=== PATIENT | female | born 1945 | race Caucasian/White ===

== ENCOUNTER 2018-01-05 11:06 | Inpatient (IN) ==
[2018-01-05] MEDS ORDERED: Orphenadrine Inj 60 MG/2 ML Ampul IM ONE (11:23)
--- NOTE | 2018-01-05 12:11 | ED ---
HPI General Chief Complaint: Back Pain/Injury Stated Complaint: Lower Back pain/Hip pain x 3 weeks Time Seen by Provider: 01/05/18 11:17 Source: patient and family Mode of arrival: wheelchair Limitations: no limitations History of Present Illness HPI Narrative: 72-year-old female that presents to the ED for evaluation of back pain that she has had for about 3 weeks now. Per patient is progressively getting worse. Per patient she has no injuries. No urinary or bowel movement issues. Per patient she is taking [id number] remedies with minimal relief. No injuries or falls. History of osteoporosis. No history of kidney stones. Apparently patient was seen about [address] [facility] for evaluation of headaches. She had a full workup including CAT scan and was essentially found to have no sign of acute disease. She is given some pain medication at the time but did not seem to help with the headache. Per patient the headaches seem to have gone away but she has this back pain. Denies any numbness, drooling, weakness. Pain per patient is 10 out of 10. Standing as well as walking makes it worse. Denies any trauma or surgery to her back. No abdominal pain. Pain is to the lower back. Bilaterally. Related Data Home Medications Medication Instructions Recorded Confirmed Fish Oil 1,200 mg PO DAILY 01/06/18 01/06/18 L-Tryroxine 88 mcg PO DAILY 01/06/18 Vitamin B-12 1,000 mg PO DAILY 01/06/18 01/06/18 Vitamin D3 1,000 PO DAILY 01/06/18 allopurinol 100 mg PO DAILY 01/06/18 01/06/18 atorvastatin 20 mg PO DAILY 01/06/18 01/06/18 lisinopril 10 mg PO DAILY 01/06/18 01/06/18 tolterodine 4 mg PO DAILY 01/06/18 01/06/18 Allergies Allergy/AdvReac Type Severity Reaction Status Date / Time No Known Allergies Allergy Unverified 01/05/18 11:12 Review of Systems ROS: all other systems reviewed are negative [facility] Medical History Medical History H/O appendicitis (Acute) High cholesterol (Acute) Hypertension (Acute) Hypothyroid (Acute) Family History Family History Mother History of breast cancer Father History of myocardial infarction Social History Social History Substance History: No History of Abuse Second Hand Smoke Exposure: Yes Smoking Status: Former smoker Number of Pack-Years (if former smoker): 50 (Patient quit smoking 7-8 months ago) How Often Do You Have a Drink Containing Alcohol: 2 to 3 times a week Recent Travel in [facility] within the Last 8 Weeks: No Recent Out of Country Travel within the Last 8 Weeks: No Immunization History Tetanus Immunization: Unsure Hx Influenza Vaccine This Season: No Exam Narrative Exam Narrative: GENERAL: Well-appearing SKIN: Focused skin assessment warm/dry. HEAD: Atraumatic. Normocephalic. EYES: Pupils equal and round. No scleral icterus. No injection or drainage. ENT: No nasal bleeding or discharge. Mucous membranes pink and moist. Tongue is midline. No uvula deviation. NECK: Trachea midline. No JVD. CARDIOVASCULAR: Regular rate and rhythm. No murmur appreciated. RESPIRATORY: No accessory muscle use. Clear to auscultation. Breath sounds equal bilaterally. GASTROINTESTINAL: Abdomen soft, non-tender, nondistended. Hepatic and splenic margins not palpable. MUSCULOSKELETAL: No obvious deformities. No clubbing. No cyanosis. No edema. Full range of motion of the upper and lower extremities bilaterally. Straight leg test negative bilaterally. Patient is a reversible pain in the musculature of the lower back. No lumbar, thoracic, cervical spine tenderness to palpation. No obvious deformity noted. No rashes. 2+ pulses bilaterally. NEUROLOGICAL: Awake and alert. No obvious cranial nerve deficits. Motor grossly within normal limits. Normal speech. PSYCHIATRIC: Appropriate mood and affect; insight and judgment normal. Course Initial Documented Vital Signs Temperature 98.3 F 01/05/18 11:08 Pulse Rate 100 H 01/05/18 11:08 Respiratory Rate 18 01/05/18 11:08 Blood Pressure 147/85 H 01/05/18 11:08 Pulse Oximetry 96 01/05/18 11:08 Last Documented Vital Signs Temperature 98.6 F 01/07/18 00:00 Pulse Rate 94 H 01/07/18 00:00 Respiratory Rate 18 01/07/18 00:00 Blood Pressure 138/69 01/07/18 00:00 Pulse Oximetry 92 L 01/07/18 00:00 Medical Decision Making CHEPE Attestation CHEPE supervised visit: Yes Attestation: I, Dr. Pratt, have reviewed the advance practice practitioner's documentation and am in agreement, met with the patient face to face, made the diagnosis, and the medical decision making was done by me. *My assessment and Findings: Musculoskeletal pain vs. pneumonia vs. arthritis 72yo F with mid back pain for a few weeks. CT LS showed incidental finding of AAA up to 4.8cm transverse diameter. So we obtained a CTA to further evalaute it. CTA showed incidental finding of 3.4 x 2.4cm central right lung mass in the superior segment of right lower lobe. Given this new finding and pt's severe mid thoracic pain, will admit with heme onc consult since this is concerning for cancer. Dr. Gray was consulted and said it is not surgical. MDM Narrative Medical decision making narrative: 72-year-old female that presents to the ED for evaluation of back pain. Patient was properly examined and was found to have signs and symptoms consistent appears to be back pain. Unclear etiology at this time. It does appear to be muscular skeletal in nature. UA and imaging ordered. CT of the lumbar spine as well as x-ray of the hip did show what appears to be chronic changes but also showed 4.8 cm aneurysm. Case was discussed with my attending as patient continues to have pain although she had some relief from the pain medication. Recommendation at this time is for CTA to rule out any sign of dissection causing the pain. Patient was told this and agrees with plan. Labs and imaging were positive for what appears to be possible lung cancer. Patient has 2 masses and lymphadenopathy per the CTA report. In regards to the aneurysm it appears to be a 4.6 aneurysm. Case was discussed with Dr. Gray over the phone about the aneurysm who states that with the findings it appears to be benign and likely not the cause of the patient's discomfort. He does not foresee the patient having surgery secondary to the possible lung cancer diagnosis but will follow up on the patient. Patient was reassessed and still in some discomfort. As long as she does not move she does have pain whenever we rule her get her up she gets a lot of pain. She was given 4 more milligrams of morphine. Case discussed with Dr. Pratt who recommends admission for further evaluation with. Unfortunately we suspect that the pain may be related to the possible cancer. This was discussed with the patient and the family who are in agreement with plan. SOLA was paged. Dr Pratt spoke with Dr Jeffries who agreed to admission to his service. Medical Screen Exam Complete: Yes Emergency Medical Condition: Yes Differential Diagnosis Differential Diagnosis: UTI versus muscle strain versus lumbar strain versus compression fracture versus stenosis Medical Records Medical records reviewed: Yes I reviewed the patient's medical records. Lab Data Lab results reviewed: Yes I reviewed the patient's lab results. Result diagrams: 01/06/18 13:25 01/06/18 05:30 Lab Results 01/05/18 01/05/18 01/05/18 Range/Units 13:05 13:05 13:15 CBC w Diff Auto diff final WBC 6.3 (4.0-11.0) th/mm3 RBC 3.83 L (4.00-5.30) mil/mm3 Hgb 12.6 (11.6-15.3) gm/dL Hct 37.1 (35.0-46.0) % MCV 96.8 (80.0-100.0) fL MCH 33.0 (27.0-34.0) pg MCHC 34.0 (32.0-36.0) % RDW 12.4 (11.6-17.2) % Plt Count 238 (150-450) th/mm3 MPV 7.8 (7.0-11.0) fL Neut % (Auto) 80.2 H (16.0-70.0) % Lymph % (Auto) 12.3 (9.0-44.0) % [place] % (Auto) 3.8 (0.0-8.0) % Eos % (Auto) 3.4 (0.0-4.0) % Baso % (Auto) 0.3 (0.0-2.0) % Neut # (Auto) 5.1 (1.8-7.7) th/mm3 Lymph # (Auto) 0.8 L (1.0-4.8) th/mm3 [place] # (Auto) 0.2 (0.0-0.9) th/mm3 Eos # (Auto) 0.2 (0.0-0.4) th/mm3 Baso # (Auto) 0.0 (0.0-0.2) th/mm3 WBC Differential . Differential Comment . PT 11.5 (9.8-11.6) sec INR 1.1 Ratio APTT 24.8 (24.3-30.1) sec Sodium 138 (136-145) meq/L Potassium 3.9 (3.5-5.1) meq/L Chloride 108 H (98-107) meq/L Carbon Dioxide 18.7 L (21.0-32.0) meq/L Anion Gap 11 (5-15) meq/L BUN 21 H (7-18) mg/dL Creatinine 1.10 H (0.50-1.00) mg/dL Estimated GFR 49 L (>89) mL/min Random Glucose 90 (74-106) mg/dL Calcium 8.9 (8.5-10.1) mg/dL Total Bilirubin 0.4 (0.2-1.0) mg/dL AST 44 H (15-37) U/L ALT 29 (10-53) U/L Alkaline Phosphatase 82 (45-117) U/L Lactate Dehydrogenase (84-246) U/L Total Protein 6.9 (6.4-8.2) g/dL Albumin 3.3 L (3.4-5.0) g/dL Lipase 279 (73-393) U/L Tumor Marker AFP (0.5-8.0) ng/mL Carcinoembryonic Ag (0.2-5.0) ng/mL CA 15-3 Antigen (0.0-32.4) U/mL CA 19-9 Antigen (0.0-35.0) U/mL CA 125 Antigen (0.0-30.2) U/mL Urine Color (Yellw/Straw) Urine Clarity (Clear) Urine pH (5.0-8.5) Ur Specific [place] (1.002-1.035) Urine Protein (Neg-Trace) mg/dL Urine Glucose (UA) (Negative) mg/dL Urine Ketones (Negative) mg/dL Urine Occult Blood (Negative) Urine Nitrate (Negative) Urine Bilirubin (Negative) Urine Urobilinogen (Less than 2) mg/dL Ur Leukocyte Esterase (Negative) Urine RBC (0-3) /hpf Urine WBC (0-5) /hpf Ur Squamous Epith Cells (0-5) /hpf Micro UA Comment 01/05/18 01/05/18 01/05/18 Range/Units 20:02 22:45 22:45 CBC w Diff WBC (4.0-11.0) th/mm3 RBC (4.00-5.30) mil/mm3 Hgb (11.6-15.3) gm/dL Hct (35.0-46.0) % MCV (80.0-100.0) fL MCH (27.0-34.0) pg MCHC (32.0-36.0) % RDW (11.6-17.2) % Plt Count (150-450) th/mm3 MPV (7.0-11.0) fL Neut % (Auto) (16.0-70.0) % Lymph % (Auto) (9.0-44.0) % [place] % (Auto) (0.0-8.0) % Eos % (Auto) (0.0-4.0) % Baso % (Auto) (0.0-2.0) % Neut # (Auto) (1.8-7.7) th/mm3 Lymph # (Auto) (1.0-4.8) th/mm3 [place] # (Auto) (0.0-0.9) th/mm3 Eos # (Auto) (0.0-0.4) th/mm3 Baso # (Auto) (0.0-0.2) th/mm3 WBC Differential Differential Comment PT (9.8-11.6) sec INR Ratio APTT (24.3-30.1) sec Sodium (136-145) meq/L Potassium (3.5-5.1) meq/L Chloride (98-107) meq/L Carbon Dioxide (21.0-32.0) meq/L Anion Gap (5-15) meq/L BUN (7-18) mg/dL Creatinine (0.50-1.00) mg/dL Estimated GFR (>89) mL/min Random Glucose (74-106) mg/dL Calcium (8.5-10.1) mg/dL Total Bilirubin (0.2-1.0) mg/dL AST (15-37) U/L ALT (10-53) U/L Alkaline Phosphatase (45-117) U/L Lactate Dehydrogenase 270 H (84-246) U/L Total Protein (6.4-8.2) g/dL Albumin (3.4-5.0) g/dL Lipase (73-393) U/L Tumor Marker AFP 3.8 (0.5-8.0) ng/mL Carcinoembryonic Ag 18.4 H (0.2-5.0) ng/mL CA 15-3 Antigen 11.5 (0.0-32.4) U/mL CA 19-9 Antigen 653.0 H (0.0-35.0) U/mL CA 125 Antigen 7.1 (0.0-30.2) U/mL Urine Color Yellow (Yellw/Straw) Urine Clarity Clear (Clear) Urine pH 5.5 (5.0-8.5) Ur Specific [place] Less/equal 1.005 (1.002-1.035) Urine Protein 100 H (Neg-Trace) mg/dL Urine Glucose (UA) Negative (Negative) mg/dL Urine Ketones Negative (Negative) mg/dL Urine Occult Blood Negative (Negative) Urine Nitrate Negative (Negative) Urine Bilirubin Negative (Negative) Urine Urobilinogen 0.2 (Less than 2) mg/dL Ur Leukocyte Esterase Negative (Negative) Urine RBC 0-3 (0-3) /hpf Urine WBC 0-5 (0-5) /hpf Ur Squamous Epith Cells 0-5 (0-5) /hpf Micro UA Comment Culture not ind 01/06/18 01/06/18 01/06/18 Range/Units 05:30 05:30 13:25 CBC w Diff Auto diff final Auto diff final WBC 4.7 6.0 (4.0-11.0) th/mm3 RBC 3.75 L 3.57 L (4.00-5.30) mil/mm3 Hgb 12.2 11.9 (11.6-15.3) gm/dL Hct 36.7 33.7 L (35.0-46.0) % MCV 97.8 94.6 (80.0-100.0) fL MCH 32.6 33.5 (27.0-34.0) pg MCHC 33.3 35.4 (32.0-36.0) % RDW 12.2 13.3 (11.6-17.2) % Plt Count 242 241 (150-450) th/mm3 MPV 8.5 8.2 (7.0-11.0) fL Neut % (Auto) 81.4 H 82.1 H (16.0-70.0) % Lymph % (Auto) 15.8 10.1 (9.0-44.0) % [place] % (Auto) 2.3 7.2 (0.0-8.0) % Eos % (Auto) 0.2 0.2 (0.0-4.0) % Baso % (Auto) 0.3 0.4 (0.0-2.0) % Neut # (Auto) 3.9 5.0 (1.8-7.7) th/mm3 Lymph # (Auto) 0.7 L 0.6 L (1.0-4.8) th/mm3 [place] # (Auto) 0.1 0.4 (0.0-0.9) th/mm3 Eos # (Auto) 0.0 0.0 (0.0-0.4) th/mm3 Baso # (Auto) 0.0 0.0 (0.0-0.2) th/mm3 WBC Differential . . Differential Comment . . PT (9.8-11.6) sec INR Ratio APTT (24.3-30.1) sec Sodium 139 (136-145) meq/L Potassium 4.1 (3.5-5.1) meq/L Chloride 110 H (98-107) meq/L Carbon Dioxide 20.2 L (21.0-32.0) meq/L Anion Gap 9 (5-15) meq/L BUN 21 H (7-18) mg/dL Creatinine 1.10 H (0.50-1.00) mg/dL Estimated GFR 49 L (>89) mL/min Random Glucose 146 H (74-106) mg/dL Calcium 8.9 (8.5-10.1) mg/dL Total Bilirubin (0.2-1.0) mg/dL AST (15-37) U/L ALT (10-53) U/L Alkaline Phosphatase (45-117) U/L Lactate Dehydrogenase (84-246) U/L Total Protein (6.4-8.2) g/dL Albumin (3.4-5.0) g/dL Lipase (73-393) U/L Tumor Marker AFP (0.5-8.0) ng/mL Carcinoembryonic Ag (0.2-5.0) ng/mL CA 15-3 Antigen (0.0-32.4) U/mL CA 19-9 Antigen (0.0-35.0) U/mL CA 125 Antigen (0.0-30.2) U/mL Urine Color (Yellw/Straw) Urine Clarity (Clear) Urine pH (5.0-8.5) Ur Specific [place] (1.002-1.035) Urine Protein (Neg-Trace) mg/dL Urine Glucose (UA) (Negative) mg/dL Urine Ketones (Negative) mg/dL Urine Occult Blood (Negative) Urine Nitrate (Negative) Urine Bilirubin (Negative) Urine Urobilinogen (Less than 2) mg/dL Ur Leukocyte Esterase (Negative) Urine RBC (0-3) /hpf Urine WBC (0-5) /hpf Ur Squamous Epith Cells (0-5) /hpf Micro UA Comment 01/06/18 Range/Units 13:25 CBC w Diff WBC (4.0-11.0) th/mm3 RBC (4.00-5.30) mil/mm3 Hgb (11.6-15.3) gm/dL Hct (35.0-46.0) % MCV (80.0-100.0) fL MCH (27.0-34.0) pg MCHC (32.0-36.0) % RDW (11.6-17.2) % Plt Count (150-450) th/mm3 MPV (7.0-11.0) fL Neut % (Auto) (16.0-70.0) % Lymph % (Auto) (9.0-44.0) % [place] % (Auto) (0.0-8.0) % Eos % (Auto) (0.0-4.0) % Baso % (Auto) (0.0-2.0) % Neut # (Auto) (1.8-7.7) th/mm3 Lymph # (Auto) (1.0-4.8) th/mm3 [place] # (Auto) (0.0-0.9) th/mm3 Eos # (Auto) (0.0-0.4) th/mm3 Baso # (Auto) (0.0-0.2) th/mm3 WBC Differential Differential Comment PT 11.5 (9.8-11.6) sec INR 1.1 Ratio APTT 23.1 L (24.3-30.1) sec Sodium (136-145) meq/L Potassium (3.5-5.1) meq/L Chloride (98-107) meq/L Carbon Dioxide (21.0-32.0) meq/L Anion Gap (5-15) meq/L BUN (7-18) mg/dL Creatinine (0.50-1.00) mg/dL Estimated GFR (>89) mL/min Random Glucose (74-106) mg/dL Calcium (8.5-10.1) mg/dL Total Bilirubin (0.2-1.0) mg/dL AST (15-37) U/L ALT (10-53) U/L Alkaline Phosphatase (45-117) U/L Lactate Dehydrogenase (84-246) U/L Total Protein (6.4-8.2) g/dL Albumin (3.4-5.0) g/dL Lipase (73-393) U/L Tumor Marker AFP (0.5-8.0) ng/mL Carcinoembryonic Ag (0.2-5.0) ng/mL CA 15-3 Antigen (0.0-32.4) U/mL CA 19-9 Antigen (0.0-35.0) U/mL CA 125 Antigen (0.0-30.2) U/mL Urine Color (Yellw/Straw) Urine Clarity (Clear) Urine pH (5.0-8.5) Ur Specific [place] (1.002-1.035) Urine Protein (Neg-Trace) mg/dL Urine Glucose (UA) (Negative) mg/dL Urine Ketones (Negative) mg/dL Urine Occult Blood (Negative) Urine Nitrate (Negative) Urine Bilirubin (Negative) Urine Urobilinogen (Less than 2) mg/dL Ur Leukocyte Esterase (Negative) Urine RBC (0-3) /hpf Urine WBC (0-5) /hpf Ur Squamous Epith Cells (0-5) /hpf Micro UA Comment Imaging Data Attestation: I personally reviewed and interpreted this imaging study as follows : Radiologist's impression: Hip X-Ray 01/05/18 11:23 CONCLUSION: No evidence of recent bony injury. Lumbar Spine CT 01/05/18 11:23 CONCLUSION: 1. Abdominal aortic aneurysm measuring up to 4.8 cm transverse diameter. Bilateral presumed renal cysts. Findings better evaluated on CT abdomen and pelvis with contrast. 2. At L4-5 there is a mild broad-based disc protrusion and facet arthropathy with moderate central canal stenosis. 3. At L2-3, L3-4 and L5-S1 there is mild lateral recess and foraminal encroachment bilaterally. Thoracic Aorta CT 01/05/18 12:52 CONCLUSION: 1. 3.4 x 2.4 cm central right lung mass with adjacent 4.5 x 2.6 cm central mass in the superior segment of the right lower lobe and associated segmental bronchial occlusion. There is also associated bulky mediastinal adenopathy. 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 No definitive evidence for distal or contralateral metastatic disease. 2. 1 cm soft tissue density mass in the superior anterior right chest wall of uncertain clinical significance. This can be further evaluated if staging PET/ CT examination is performed. 3. 4.6 cm infrarenal aortic aneurysm with favorable neck anatomy for endovascular repair. 4. No aortic dissection. Discharge Plan Discharge Disposition Patient Disposition: 30 Still Patient Discharge Details Diagnosis: Back pain, Lung mass, Aneurysm Physicians Team ED Provider: Maribell Pratt ED Midlevel Provider: Leandro Ghotra Primary Care Provider: Tobi Jeffries Attending Provider: Marii Owusu Other Providers: Blake Caceres Chandan Status ED Status: Left Department Discharge Information Discharge Date/Time: 01/05/18 17:13
--- NOTE | 2018-01-05 12:24 | XR ---
EXAM DATE: 01/05/2018 12:20 PM EDT AGE/SEX: 72 years / Female INDICATIONS: Right hip pain x 3 weeks with no known injury. CLINICAL DATA: This is the patient's initial encounter. Patient reports that signs and symptoms have been present for 3 weeks and indicates a pain score of 7/10. MEDICAL/SURGICAL HISTORY: Hypothyroidism. Hypertension. Hypercholesterolemia. Appendectomy. COMPARISON: No prior exams available for comparison. FINDINGS: Bony structures are intact and in normal alignment. Joints are intact without dislocation or signifi cant arthropathy. Osseous density is normal. Soft tissues are unremarkable. No radiopaque foreign bodies seen. CONCLUSION: No evidence of recent bony injury. Electronically signed by: Blake Stubbs MD 01/05/2018 12:22 PM EDT
--- NOTE | 2018-01-05 12:40 | CT ---
EXAM DATE: 01/05/2018 12:24 PM EDT AGE/SEX: 72 years / Female INDICATIONS: Worsening lower back pain for three weeks. Patient denies any recent trauma. CLINICAL DATA: This is the patient's initial encounter. Patient reports that signs and symptoms have been present for 3 weeks and indicates a pain score of 10/10. MEDICAL/SURGICAL HISTORY: Hypertension. Hypothyroidism. Appendectomy. RADIATION DOSE: 39.00 CTDI (mGy) COMPARISON: No prior exams available for comparison. TECHNIQUE: Contiguous axial images were acquired with a multirow detector CT scanner without contras t. Multiplanar reconstructions in the sagittal and coronal plane were also performed. Using automate d exposure control and adjustment of the mA and/or kV according to patient size, radiation dose was k ept as low as reasonably achievable to obtain optimal diagnostic quality images. DICOM format image data is available electronically for review and comparison. FINDINGS: There is an abdominal aortic aneurysm measuring up to 4.8 cm in transverse diameter. This is incomple tely evaluated and would be better evaluated with abdomen and pelvic CT with contrast. There are tiny nonobstructing left renal calculi. Bilateral presumed renal cysts present also better evaluated on C T. At [id number] there is no significant canal or foraminal stenosis. At L2-3 there is a broad-based disc bulge and facet arthropathy with mild lateral recess and foramina l encroachment bilaterally. At L3-4 there is a disc bulge and facet arthropathy with mild lateral recess and foraminal encroachme nt. At L4-5 there is a mild broad-based disc fusion at arthropathy with moderate central canal and latera l recess stenosis and mild foraminal stenosis At L5-S1 there is a disc bulge with minimal anterolisthesis. No central canal stenosis. Mild bilatera l foraminal stenosis. CONCLUSION: 1. Abdominal aortic aneurysm measuring up to 4.8 cm transverse diameter. Bilateral presumed renal cy sts. Findings better evaluated on CT abdomen and pelvis with contrast. 2. At L4-5 there is a mild broad-based disc protrusion and facet arthropathy with moderate central c anal stenosis. 3. At L2-3, L3-4 and L5-S1 there is mild lateral recess and foraminal encroachment bilaterally. Electronically signed by: Jordan Arceo MD 01/05/2018 12:39 PM EDT
[2018-01-05] MEDS ORDERED: Morphine Inj 4 MG/ML Vial IV.PUSH ONE ×2 (12:52→13:06)
[2018-01-05 13:11] LABS: Baso % (Auto) 0.3 % (0.0-2.0); Eos # (Auto) 0.2 th/mm3 (0.0-0.4); Eos % (Auto) 3.4 % (0.0-4.0); Hematocrit 37.1 % (35.0-46.0); Hemoglobin 12.6 gm/dL (11.6-15.3); Lymph # (Auto) 0.8 th/mm3 (1.0-4.8); Lymph % (Auto) 12.3 % (9.0-44.0); Mean Corpuscular Volume 96.8 fL (80.0-100.0); Mean Platelet Volume 7.8 fL (7.0-11.0); Mono # (Auto) 0.2 th/mm3 (0.0-0.9); Mono % (Auto) 3.8 % (0.0-8.0); Neut # (Auto) 5.1 th/mm3 (1.8-7.7); Neut % (Auto) 80.2 % (16.0-70.0); Platelet Count 238 th/mm3 (150-450); Red Blood Count 3.83 mil/mm3 (4.00-5.30); Red Cell Distribution Width 12.4 % (11.6-17.2); White Blood Count 6.3 th/mm3 (4.0-11.0)
[2018-01-05 13:35] LABS: Lipase 279 U/L (73-393)
[2018-01-05 13:40] LABS: Activated Partial Thrombo Time 24.8 sec (24.3-30.1); INR 1.1 Ratio; Prothrombin Time 11.5 sec (9.8-11.6)
[2018-01-05 13:46] LABS: Chloride 108 meq/L (98-107); Potassium 3.9 meq/L (3.5-5.1); Sodium 138 meq/L (136-145)
[2018-01-05 13:49] LABS: Albumin 3.3 g/dL (3.4-5.0); Anion Gap 11 meq/L (5-15); Blood Urea Nitrogen 21 mg/dL (7-18); Calcium 8.9 mg/dL (8.5-10.1); Carbon Dioxide 18.7 meq/L (21.0-32.0); Glucose,Random 90 mg/dL (74-106)
[2018-01-05 13:52] LABS: Alanine Aminotransferase 29 U/L (10-53); Aspartate Aminotransferase 44 U/L (15-37); Glomerular Filtration Rate 49 mL/min (>89)
[2018-01-05 13:54] LABS: Total Protein 6.9 g/dL (6.4-8.2)
[2018-01-05 13:55] LABS: Alkaline Phosphatase 82 U/L (45-117)
--- NOTE | 2018-01-05 15:10 | CT ---
EXAM DATE: 01/05/2018 2:53 PM EDT AGE/SEX: 72 years / Female INDICATIONS: Lower back pain, abdominal aneurysm seen on prior lumbar spine CT. CLINICAL DATA: This is the patient's initial encounter. Patient reports that signs and symptoms have been present for 3 weeks and indicates a pain score of 9/10. MEDICAL/SURGICAL HISTORY: Hypertension. Hypothyroidism. Appendectomy. RADIATION DOSE: 15.94 CTDI (mGy) COMPARISON: [facility], CT LUMBAR SPINE W/O CONTRAST, 01/05/2018. . TECHNIQUE: Volumetric scanning was performed using a multi-row detector CT scanner during bolus infu genesis of 97 ml Omnipaque 350 (iohexol) nonionic water-soluble contrast as a single exam dose. The da ta was post processed with a variety of visualization algorithms including full volume maximum intens ity projection, multi-planar sliding thin slab reformation, curved planar reformation, and surface re ndering techniques. Using automated exposure control and adjustment of the mA and/or kV according to patient size, radiation dose was kept as low as reasonably achievable to obtain optimal diagnostic q uality images. DICOM format image data is available electronically for review and comparison. FINDINGS: Angiographic Findings: Ascending: Normal in Caliber without evidence for dissection. Arch: Normal 3 vessel arch anatomy. Proximal arch vessels are patent. Arch is normal in caliber witho ut dissection. Descending: Mild calcified plaque. Normal in caliber without evidence for dissection. Abdominal Aorta: Somewhat saccular-appearing infrarenal aortic aneurysm measuring up to 4.6 cm in ma ximal axial dimension. There is moderate amount of mural thrombus in the aneurysm sac. Aneurysm neck measures up to 2.5 cm and is mildly calcified. Aneurysm neck measures 1.8 cm in diameter. Iliacs: Iliac arteries are mild to moderately calcified but otherwise patent and nonaneurysmal. Inter nal iliac arteries are patent bilaterally. Common femoral arteries and visualized proximal femoral ar teries are patent. Renal Arteries: Single bilateral renal arteries. Mild calcified plaque at the origins without signifi cant flow-limiting stenosis. Mesenteric Arteries: Celiac is patent. Mild SMA origin stenosis. SOCRATES is patent and arises from just b elow the aneurysm sac.: General Findings: LUNGS: 3.4 x 2.4 cm central right lung mass with adjacent 4.5 x 2.6 cm central mass in the superior segment of the right lower lobe. There is associated occlusion of the segmental branches of the right lower lobe. PLEURA: No effusion, significant pleural thickening or pneumothorax. MEDIASTINUM: Multiple mediastinal nodes. Prominent subcarinal lymph node measuring 2.1 x 2.7 cm. Enl arged anterior carinal node measuring 2.3 x 2.8 cm. Prominent anterior tracheal lymph nodes measuring up to 3.2 x 2.2 cm. SOFT TISSUES: 1 cm soft tissue density mass in the superior anterior right chest wall. LIVER: Mild diffusely decreased hepatic density without focal mass or intrahepatic ductal dilatation . SPLEEN: Homogeneous density without enlargement. PANCREAS: Unremarkable without mass or calcification. KIDNEYS: Stable bilateral cystic lesions in the kidneys which are too small to fully characterize. D ominant 4.4 x 4.0 cm cyst in the inferior pole the left kidney. No hydronephrosis or radiopaque renal calculi. ADRENAL GLANDS: Unremarkable. BOWEL/MESENTERY: The bowel loops are grossly unremarkable. The cecum and sigmoid colon have a kp l configuration. ABDOMINAL WALL: Intact. RETROPERITONEUM: No evidence of adenopathy in the retrocrural, para-aortic, or deep pelvic regions. BLADDER: Contours are smooth. REPRODUCTIVE: No abnormal masses or calcifications seen. BONY STRUCTURES: Prominent Schmorl's nodes at T12. No definite focal lytic or blastic bony lesions. CONCLUSION: 1. 3.4 x 2.4 cm central right lung mass with adjacent 4.5 x 2.6 cm central mass in the superior segm ent of the right lower lobe and associated segmental bronchial occlusion. There is also associated bu lky mediastinal adenopathy. 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 No definitive evidence for distal or contralateral metastatic disease. 2. 1 cm soft tissue density mass in the superior anterior right chest wall of uncertain clinical sig nificance. This can be further evaluated if staging PET/CT examination is performed. 3. 4.6 cm infrarenal aortic aneurysm with favorable neck anatomy for endovascular repair. 4. No aortic dissection. Electronically signed by: Andrew Weber MD 01/05/2018 3:09 PM EDT
[2018-01-05] MEDS ORDERED: Acetaminophen 325 MG Tablet PO PRN (15:55)
[2018-01-05] MEDS ORDERED: MethylPREDNISolone Sod Succinate Inj 125 MG/2 ML Vial IV.PUSH ONE (16:00)
[2018-01-05] MEDS ORDERED: Enoxaparin Inj 40 MG/0.4 ML Syringe SQ SCH (18:00)
--- NOTE | 2018-01-05 18:58 | P.HP ---
History of Present Illness Primary Care Physician: Tobi Jeffries DO Chief Complaint: Back pain History of Present Illness: 72-year-old female with known history of hypertension, hyperlipidemia , history of tobacco use, hypothyroidism who presented to the hospital because of back pain. Patient states that she started having lower back pain approximately 3 weeks ago where progressively got worse to where it was very difficult and painful for her to go from a sitting or laying position to a standing position she went to her prior medical doctor's office 2 weeks ago to get her back evaluated. At that time she indicates that her primary medical doctor prescribed her an antidepressant. Her back pain never improved so she came to the emergency department for evaluation. Patient had workup done and found multiple medical problems in reference to her back pain. Patient has CT scan done which did indicate a disc bulge at L4-L5 with moderate central canal stenosis. Patient denied any neurological symptoms to include weakness, ambulation difficulty, paresthesia, paralysis, loss of bowel or bladder control. The CT also showed abdominal aortic aneurysm measuring 4.8 cm. Because of that reason. A thoracic CTA was performed which did indicate a 4.6 infrarenal aortic aneurysm with favorable neck anatomy for endovascular repair. The ER physician water quality assistant did contact cardiovascular surgery Dr. Abel, who indicated that the finding appears to be benign and not the cause of the patient's discomfort. He did not proceed the patient having surgery secondary to the possible lung cancer diagnosis is indicated that he would continue to follow up on the patient. However, because of that CT of the thorax patient was found to have multiple lung masses seen measuring 3.4 x 2.4 central right lung mass, 4.5 x 2.6 central mass in the superior segment of the right lower lobe associated with subsegmental bronchial occlusion. There was also bulky mediastinal adenopathy. Findings were concerning for primary lung neoplasm and mediastinum metastasis. Patient indicates that her primary medical doctor usually does chest x-rays on a annual basis and the last time she was there she indicates that she was told that they have been monitoring something in her chest x-ray that has not changed. She cannot be more specific about it. Patient states that the last time she was at her primary medical doctor's office 2 weeks ago she had a 22 pound weight loss as compared to the last time she was seen there. Patient denies any other symptoms other than the back pain and difficulty in movement. She denies any cough, congestion, shortness of breath, dyspnea, hemoptysis, abdominal pain, nausea, vomiting. - Diagnosis (1) Back pain (2) Lung mass (3) Aneurysm (4) Azotemia Review of Systems Musculoskeletal: Reports back pain PMFSH - History History Provided By: Patient - Medical History Medical History: Medical History (Last Reviewed 01/05/18 @ 12:09 by ERNESTINA Anderson) H/O appendicitis High cholesterol Hypertension Hypothyroid - Surgical History Surgical History: Surgical History (Last Updated 01/05/18 @ 18:42 by ERNESTINA [place]) H/O appendicitis - Family History Family History: Family History (Last Updated 01/05/18 @ 18:42 by ERNESTINA [place]) Mother History of breast cancer Father History of myocardial infarction - Tobacco History Second Hand Smoke Exposure: Yes Smoking Status: Former smoker Number of Pack Years (if former smoker): 50 (Patient quit smoking 7-8 months ago ) - Alcohol History How Often Do You Have a Drink Containing Alcohol: 2 to 3 times a week - Substance Use History Substance History: No History of Abuse - Travel History Recent Travel in the [place] Within the Last 8 Weeks: No Recent Travel Out of the Country Within the Last 8 Weeks: No - Immunization History Tetanus Immunization: Unsure Hx Influenza Vaccine This Season: No Medications and Allergies Active Medications: Active Medications Acetaminophen (Tylenol) 650 mg PO Q4H PRN PRN Reason: Temp > 100.4 Al Hydroxide/Mg Hydroxide (Milk Of [place]oe [place]) 30 ml PO Q12H PRN PRN Reason: Mild Constipation Enoxaparin Sodium (Lovenox Inj) 40 mg SQ Q24H JULIETH Last Admin: 01/05/18 17:44 Dose: 40 mg Morphine Sulfate (Morphine Inj) 4 mg IV.PUSH Q4H PRN PRN Reason: PAIN SCALE 6 TO 10 Temazepam (Restoril) 15 mg PO HS PRN PRN Reason: INSOMNIA Allergies Allergy/AdvReac Type Severity Reaction Status Date / Time No Known Allergies Allergy Unverified 01/05/18 11:12 Exam Vital signs: Vital Signs 01/05/18 11:08 01/05/18 14:45 01/05/18 16:00 Temperature 98.3 F 98.5 F Pulse Rate 100 H 94 H 65 Respiratory Rate 18 18 21 Blood Pressure 147/85 H 135/77 130/80 Pulse Oximetry 96 94 L 97 Intake & Output 01/04/18 01/05/18 01/05/18 18:59 06:59 18:59 Weight 64.7 kg Other: Weight On Admission 64.7 kg Narrative: GENERAL: Well-developed, well-nourished, in no acute distress. alert and orientated HEENT: Head is normocephalic without any lesions or masses noted. Facial features are symmetric. Eyes: Pupils equal round reactive to light. Extraocular muscles are intact. Conjunctivae were clear. Oropharyngeal: Pharynx without any erythema edema. Tongue is midline without deviation. Buccal mucosa is moist without any masses or lesions NECK: Supple without any masses. Trachea midline no deviation. No JVD, no bruits are appreciated CARDIAC: Regular rhythm, regular rate. S1/S2 are heard. No murmurs gallops or rubs. LUNGS: Clear to auscultation bilaterally. No wheeze, rhonchi or rales. No use of accessory muscles on inspiration or expiration. ABDOMEN: Soft, nontender. Nondistended. Bowel sounds heard in all 4 quadrants. No organomegaly or masses. Negative rebound, negative guarding EXTREMITIES: No edema, pulses are equal bilaterally. No cyanosis or clubbing NEUROLOGY: Mood and affect appear appropriate. Cranial nerves II through XII grossly intact. Muscle strength 5/5 in upper and lower extremities bilaterally. Deep tendon reflexes are 2+ in upper and lower extremities bilaterally. Results - Labs CBC & Chem 7: 01/05/18 13:05 01/05/18 13:15 Labs: Laboratory Results - last 24 hr 01/05/18 01/05/18 01/05/18 13:05 13:05 13:15 CBC w Diff Auto diff final WBC 6.3 RBC 3.83 L Hgb 12.6 Hct 37.1 MCV 96.8 MCH 33.0 MCHC 34.0 RDW 12.4 Plt Count 238 MPV 7.8 Neut % (Auto) 80.2 H Lymph % (Auto) 12.3 [place] % (Auto) 3.8 Eos % (Auto) 3.4 Baso % (Auto) 0.3 Neut # (Auto) 5.1 Lymph # (Auto) 0.8 L [place] # (Auto) 0.2 Eos # (Auto) 0.2 Baso # (Auto) 0.0 WBC Differential . Differential Comment . PT 11.5 INR 1.1 APTT 24.8 Sodium 138 Potassium 3.9 Chloride 108 H Carbon Dioxide 18.7 L Anion Gap 11 BUN 21 H Creatinine 1.10 H Estimated GFR 49 L Random Glucose 90 Calcium 8.9 Total Bilirubin 0.4 AST 44 H ALT 29 Alkaline Phosphatase 82 Total Protein 6.9 Albumin 3.3 L Lipase 279 - Imaging Impressions Hip X-Ray 01/05/18 11:23 CONCLUSION: No evidence of recent bony injury. Lumbar Spine CT 01/05/18 11:23 CONCLUSION: 1. Abdominal aortic aneurysm measuring up to 4.8 cm transverse diameter. Bilateral presumed renal cysts. Findings better evaluated on CT abdomen and pelvis with contrast. 2. At L4-5 there is a mild broad-based disc protrusion and facet arthropathy with moderate central canal stenosis. 3. At L2-3, L3-4 and L5-S1 there is mild lateral recess and foraminal encroachment bilaterally. Thoracic Aorta CT 01/05/18 12:52 CONCLUSION: 1. 3.4 x 2.4 cm central right lung mass with adjacent 4.5 x 2.6 cm central mass in the superior segment of the right lower lobe and associated segmental bronchial occlusion. There is also associated bulky mediastinal adenopathy. 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 No definitive evidence for distal or contralateral metastatic disease. 2. 1 cm soft tissue density mass in the superior anterior right chest wall of uncertain clinical significance. This can be further evaluated if staging PET/ CT examination is performed. 3. 4.6 cm infrarenal aortic aneurysm with favorable neck anatomy for endovascular repair. 4. No aortic dissection. Caprini VTE Risk Assessment Caprini VTE Risk Assessment: Moderate/High Risk (score >= 2) Caprini Risk Assessment Model: Point Value = 1 Point Value = 2 Point Value = 3 Point Value = 5 Age 41-60 Minor surgery BMI > 25 kg/m2 Swollen legs Varicose veins or History of unexplained or recurrent spontaneous Oral contraceptives or hormone replacement Sepsis (< 1 month) Serious lung disease, including pneumonia (< 1 month) Abnormal pulmonary function Acute myocardial infarction Congestive heart failure (< 1 month) History of inflammatory bowel disease Medical patient at bed rest Age 61-74 Arthroscopic surgery Major open surgery (> 45 min) Laparoscopic surgery (> 45 min) Malignancy Confined to bed (> 72 hours) Immobilizing plaster cast Central venous access Age >= 75 History of VTE Family history of VTE Factor V Leiden Prothrombin [id number] Lupus anticoagulant Anticardiolipin antibodies Elevated serum homocysteine Heparin-induced thrombocytopenia Other congenital or acquired thrombophilia Stroke (< 1 month) Elective arthroplasty Hip, pelvis, or leg fracture Acute spinal cord injury (< 1 month) Prophylaxis Regimen: Total Risk Factor Score Risk Level Prophylaxis Regimen 0-1 Low Early ambulation 2 Moderate Order ONE of the following: *Sequential Compression Device (SCD) *Heparin 5000 units SQ BID 3-4 Higher Order ONE of the following medications: *Heparin 5000 units SQ TID *Enoxaparin/Lovenox 40 mg SQ daily (WT < 150 kg, CrCl > 30 mL/min) *Enoxaparin/Lovenox 30 mg SQ daily (WT < 150 kg, CrCl > 10-29 mL/min) *Enoxaparin/Lovenox 30 mg SQ BID (WT < 150 kg, CrCl > 30 mL/min) AND/OR *Sequential Compression Device (SCD) 5 or more Highest Order ONE of the following medications: *Heparin 5000 units SQ TID (Preferred with Epidurals) *Enoxaparin/Lovenox 40 mg SQ daily (WT < 150 kg, CrCl > 30 mL/min) *Enoxaparin/Lovenox 30 mg SQ daily (WT < 150 kg, CrCl > 10-29 mL/min) *Enoxaparin/Lovenox 30 mg SQ BID (WT < 150 kg, CrCl > 30 mL/min) AND *Sequential Compression Device (SCD) Assessment and Plan - Assessment (1) Back pain Code(s): M54.9 - Dorsalgia, unspecified Status: Acute (2) Lung mass Code(s): R91.8 - Other nonspecific abnormal finding of lung field Status: Acute (3) Aneurysm Code(s): I72.9 - Aneurysm of unspecified site Status: Acute (4) Azotemia Code(s): R79.89 - Other specified abnormal findings of blood chemistry Status : Acute - Plan Multiple lung masses highly suspicious for lung cancer with mediastinal metastasis -Consult pulmonology for further recommendations -Obtain records from Dr. Tobi Jeffries's office for evaluation and comparison -Obtain tumor markers -If no outpatient workup has already been performed or monitoring patient will likely need a CT-guided biopsy for definitive treatment and management Back pain -CT scan does obviously show an etiology of her discomfort being facet arthropathy, bulging discs with moderate spinal cord stenosis -Patient will likely require further evaluation, management with either physical therapy, neurosurgical consultation for recommendations -We will start with Flexeril for muscle relaxation, hot pack administration. Anti-inflammatory for pain control -Physical therapy evaluation 4.6 cm infrarenal aortic aneurysm -CTA indicating that it has favorable neck anatomy for endovascular repair -ER documentation indicates that there was discussion with cardiovascular surgery who indicated that the finding appear to be benign and not causing the patient discomfort. He does not foresee the patient having surgery secondary to the possible lung cancer diagnosis, but will follow up on the patient. -Patient will need strict blood pressure management Azotemia -Unknown whether patient has chronic versus acute renal abnormality -Maintain IV fluids -Monitor renal function Hypertension, hyperlipidemia -Home medications are unknown at this time. -Vasotec/clonidine as needed -Nursing staff to obtain accurate home medication list DVT prevention -Sequential compression devices, avoid chemical prophylaxis secondary to patient will likely require intervention (1) Back pain Qualifiers: Back pain location: thoracic back pain Chronicity: acute Back pain laterality: bilateral Qualified Code(s): M54.6 - Pain in thoracic spine
[2018-01-05 20:25] LABS: Bilirubin,Urine Negative (Negative); Clarity,Urine Clear (Clear); Color,Urine Yellow (Yellw/Straw); Glucose,Urine (UA) Negative (Negative); Leukocyte Esterase,Urine Negative (Negative); Nitrite,Urine Negative (Negative); PH,Urine 5.5 (5.0-8.5); Specific Gravity,Urine Less/Equal 1.005 (1.002-1.035); Urobilinogen,Urine 0.2 mg/dL (Less than 2)
[2018-01-05 20:36] LABS: RBC,Urine 0-3 /hpf (0-3); Squamous Epithelial Cell,Urine 0-5 /hpf (0-5); WBC,Urine 0-5 /hpf (0-5)
[2018-01-05] MEDS: Ibuprofen 400 MG Tablet PO SCH (21:09)
[2018-01-05] MEDS: Sod Chloride 0.9% Inj 1,000 ML IV.CONT SCH (21:10)
[2018-01-05] MEDS: Temazepam 15 MG Capsule PO PRN (23:05)
[2018-01-06 01:11] LABS: Alpha Fetoprotein Tumor Marker 3.8 ng/mL (0.5-8.0); Carcinoembryonic Antigen 18.4 ng/mL (0.2-5.0)
[2018-01-06 01:48] LABS: Cancer Antigen 125 7.1 U/mL (0.0-30.2)
[2018-01-06 01:58] LABS: Cancer Antigen 15-3 11.5 U/mL (0.0-32.4)
[2018-01-06] MEDS: Ibuprofen 400 MG Tablet PO SCH ×3 (05:22→21:36)
[2018-01-06 06:12] LABS: Baso % (Auto) 0.3 % (0.0-2.0); Eos % (Auto) 0.2 % (0.0-4.0); Hematocrit 36.7 % (35.0-46.0); Hemoglobin 12.2 gm/dL (11.6-15.3); Lymph # (Auto) 0.7 th/mm3 (1.0-4.8); Lymph % (Auto) 15.8 % (9.0-44.0); Mean Corpuscular HGB Conc 33.3 % (32.0-36.0); Mean Corpuscular Hemoglobin 32.6 pg (27.0-34.0); Mean Corpuscular Volume 97.8 fL (80.0-100.0); Mean Platelet Volume 8.5 fL (7.0-11.0); Mono # (Auto) 0.1 th/mm3 (0.0-0.9); Mono % (Auto) 2.3 % (0.0-8.0); Neut # (Auto) 3.9 th/mm3 (1.8-7.7); Neut % (Auto) 81.4 % (16.0-70.0); Platelet Count 242 th/mm3 (150-450); Red Blood Count 3.75 mil/mm3 (4.00-5.30); Red Cell Distribution Width 12.2 % (11.6-17.2); White Blood Count 4.7 th/mm3 (4.0-11.0)
[2018-01-06 06:16] LABS: Potassium 4.1 meq/L (3.5-5.1)
[2018-01-06 06:19] LABS: Calcium 8.9 mg/dL (8.5-10.1)
[2018-01-06 06:20] LABS: Carbon Dioxide 20.2 meq/L (21.0-32.0)
[2018-01-06] MEDS: Morphine Inj 4 MG/ML Vial IV.PUSH PRN ×3 (07:50→23:58)
--- NOTE | 2018-01-06 11:49 | P.PN ---
Subjective Interval history: 72-year-old female who is seen as a low back pain. Lung mass. Patient laying in bed. Stating that he still having significant pain in her back with difficulty with moving. Patient denies any bladder or fecal incontinence. Vital signs Are stable, patient remains afebrile. Physical Exam Vital signs: Vital Signs 01/05/18 14:45 01/05/18 16:00 01/05/18 20:00 Temperature 98.5 F 97.9 F Pulse Rate 94 H 65 95 H Respiratory Rate 18 21 20 Blood Pressure 135/77 130/80 138/82 Pulse Oximetry 94 L 97 92 L 01/06/18 00:00 01/06/18 08:00 Temperature 97.3 F L Pulse Rate 99 H 91 H Respiratory Rate 40 H 21 Blood Pressure 148/77 H Pulse Oximetry 94 L Intake & Output 01/05/18 01/06/18 01/06/18 18:59 06:59 18:59 Intake Total 240 / 240 240 / 240 Balance 240 / 240 240 / 240 Weight 64.7 kg 63.4 kg Intake: Oral 240 / 240 240 / 240 Other: # Voids 2 Weight On Admission 64.7 kg Narrative: GENERAL: Well-developed, well-nourished, in no acute distress. alert and orientated HEENT: Head is normocephalic without any lesions or masses noted. Facial features are symmetric. Eyes: Extraocular muscles are intact. Conjunctivae were clear. NECK: Supple without any masses. Trachea midline no deviation. No JVD, CARDIAC: Regular rhythm, regular rate. S1/S2 are heard. No murmurs gallops or rubs. LUNGS: Clear to auscultation bilaterally. No wheeze, rhonchi or rales. No use of accessory muscles on inspiration or expiration. ABDOMEN: Soft, nontender. Nondistended. Bowel sounds heard in all 4 quadrants. No organomegaly or masses. Negative rebound, negative guarding EXTREMITIES: No edema, pulses are equal bilaterally. No cyanosis or clubbing NEUROLOGY: Mood and affect appear appropriate. Cranial nerves II through XII grossly intact. Moving all extremities, speech is clear Results - Labs CBC & Chem 7: 01/06/18 05:30 01/06/18 05:30 Laboratory Results - last 24 hr 01/05/18 01/05/18 01/05/18 13:05 13:05 13:15 CBC w Diff Auto diff final WBC 6.3 RBC 3.83 L Hgb 12.6 Hct 37.1 MCV 96.8 MCH 33.0 MCHC 34.0 RDW 12.4 Plt Count 238 MPV 7.8 Neut % (Auto) 80.2 H Lymph % (Auto) 12.3 [place] % (Auto) 3.8 Eos % (Auto) 3.4 Baso % (Auto) 0.3 Neut # (Auto) 5.1 Lymph # (Auto) 0.8 L [place] # (Auto) 0.2 Eos # (Auto) 0.2 Baso # (Auto) 0.0 WBC Differential . Differential Comment . PT 11.5 INR 1.1 APTT 24.8 Sodium 138 Potassium 3.9 Chloride 108 H Carbon Dioxide 18.7 L Anion Gap 11 BUN 21 H Creatinine 1.10 H Estimated GFR 49 L Random Glucose 90 Calcium 8.9 Total Bilirubin 0.4 AST 44 H ALT 29 Alkaline Phosphatase 82 Lactate Dehydrogenase Total Protein 6.9 Albumin 3.3 L Lipase 279 Tumor Marker AFP Carcinoembryonic Ag CA 15-3 Antigen CA 19-9 Antigen CA 125 Antigen Urine Color Urine Clarity Urine pH Ur Specific [place] Urine Protein Urine Glucose (UA) Urine Ketones Urine Occult Blood Urine Nitrate Urine Bilirubin Urine Urobilinogen Ur Leukocyte Esterase Urine RBC Urine WBC Ur Squamous Epith Cells Micro UA Comment 01/05/18 01/05/18 01/05/18 20:02 22:45 22:45 CBC w Diff WBC RBC Hgb Hct MCV MCH MCHC RDW Plt Count MPV Neut % (Auto) Lymph % (Auto) [place] % (Auto) Eos % (Auto) Baso % (Auto) Neut # (Auto) Lymph # (Auto) [place] # (Auto) Eos # (Auto) Baso # (Auto) WBC Differential Differential Comment PT INR APTT Sodium Potassium Chloride Carbon Dioxide Anion Gap BUN Creatinine Estimated GFR Random Glucose Calcium Total Bilirubin AST ALT Alkaline Phosphatase Lactate Dehydrogenase 270 H Total Protein Albumin Lipase Tumor Marker AFP 3.8 Carcinoembryonic Ag 18.4 H CA 15-3 Antigen 11.5 CA 19-9 Antigen 653.0 H CA 125 Antigen 7.1 Urine Color Yellow Urine Clarity Clear Urine pH 5.5 Ur Specific [place] Less/equal 1.005 Urine Protein 100 H Urine Glucose (UA) Negative Urine Ketones Negative Urine Occult Blood Negative Urine Nitrate Negative Urine Bilirubin Negative Urine Urobilinogen 0.2 Ur Leukocyte Esterase Negative Urine RBC 0-3 Urine WBC 0-5 Ur Squamous Epith Cells 0-5 Micro UA Comment Culture not ind 01/06/18 01/06/18 05:30 05:30 CBC w Diff Auto diff final WBC 4.7 RBC 3.75 L Hgb 12.2 Hct 36.7 MCV 97.8 MCH 32.6 MCHC 33.3 RDW 12.2 Plt Count 242 MPV 8.5 Neut % (Auto) 81.4 H Lymph % (Auto) 15.8 [place] % (Auto) 2.3 Eos % (Auto) 0.2 Baso % (Auto) 0.3 Neut # (Auto) 3.9 Lymph # (Auto) 0.7 L [place] # (Auto) 0.1 Eos # (Auto) 0.0 Baso # (Auto) 0.0 WBC Differential . Differential Comment . PT INR APTT Sodium 139 Potassium 4.1 Chloride 110 H Carbon Dioxide 20.2 L Anion Gap 9 BUN 21 H Creatinine 1.10 H Estimated GFR 49 L Random Glucose 146 H Calcium 8.9 Total Bilirubin AST ALT Alkaline Phosphatase Lactate Dehydrogenase Total Protein Albumin Lipase Tumor Marker AFP Carcinoembryonic Ag CA 15-3 Antigen CA 19-9 Antigen CA 125 Antigen Urine Color Urine Clarity Urine pH Ur Specific [place] Urine Protein Urine Glucose (UA) Urine Ketones Urine Occult Blood Urine Nitrate Urine Bilirubin Urine Urobilinogen Ur Leukocyte Esterase Urine RBC Urine WBC Ur Squamous Epith Cells Micro UA Comment - Imaging Impressions Hip X-Ray 01/05/18 11:23 CONCLUSION: No evidence of recent bony injury. Lumbar Spine CT 01/05/18 11:23 CONCLUSION: 1. Abdominal aortic aneurysm measuring up to 4.8 cm transverse diameter. Bilateral presumed renal cysts. Findings better evaluated on CT abdomen and pelvis with contrast. 2. At L4-5 there is a mild broad-based disc protrusion and facet arthropathy with moderate central canal stenosis. 3. At L2-3, L3-4 and L5-S1 there is mild lateral recess and foraminal encroachment bilaterally. Thoracic Aorta CT 01/05/18 12:52 CONCLUSION: 1. 3.4 x 2.4 cm central right lung mass with adjacent 4.5 x 2.6 cm central mass in the superior segment of the right lower lobe and associated segmental bronchial occlusion. There is also associated bulky mediastinal adenopathy. 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 No definitive evidence for distal or contralateral metastatic disease. 2. 1 cm soft tissue density mass in the superior anterior right chest wall of uncertain clinical significance. This can be further evaluated if staging PET/ CT examination is performed. 3. 4.6 cm infrarenal aortic aneurysm with favorable neck anatomy for endovascular repair. 4. No aortic dissection. Assessment and Plan - Assessment (1) Back pain Code(s): M54.9 - Dorsalgia, unspecified Status: Acute (2) Lung mass Code(s): R91.8 - Other nonspecific abnormal finding of lung field Status: Acute (3) Aneurysm Code(s): I72.9 - Aneurysm of unspecified site Status: Acute (4) Azotemia Code(s): R79.89 - Other specified abnormal findings of blood chemistry Status : Acute - Plan Multiple lung masses highly suspicious for lung cancer with mediastinal metastasis -Consulted pulmonology for further recommendations -Obtain records from Dr. Tobi Jeffries's office for evaluation and comparison -Tumor markers actually shown on elevation in CA-19-9, CEA, LDH. CA-15-3, CA 125, AFP were negative. -If no outpatient workup has already been performed or monitoring patient will likely need a CT-guided biopsy for definitive treatment and management Back pain -CT scan does obviously show an etiology of her discomfort being facet arthropathy, bulging discs with moderate spinal cord stenosis -Patient will likely require further evaluation, management with either physical therapy, neurosurgical consultation for recommendations -We will start with Flexeril for muscle relaxation, hot pack administration. Anti-inflammatory for pain control -Physical therapy evaluation 4.6 cm infrarenal aortic aneurysm -CTA indicating that it has favorable neck anatomy for endovascular repair -ER documentation indicates that there was discussion with cardiovascular surgery who indicated that the finding appear to be benign and not causing the patient discomfort. He does not foresee the patient having surgery secondary to the possible lung cancer diagnosis, but will follow up on the patient. -Patient will need strict blood pressure management Azotemia, stable -Unknown whether patient has chronic versus acute renal abnormality -Maintain IV fluids -Monitor renal function Hypertension, hyperlipidemia -Home medications are unknown at this time. -Vasotec/clonidine as needed -Nursing staff to obtain accurate home medication list DVT prevention -Sequential compression devices, avoid chemical prophylaxis secondary to patient will likely require intervention (1) Back pain Qualifiers: Back pain location: thoracic back pain Chronicity: acute Back pain laterality: bilateral Qualified Code(s): M54.6 - Pain in thoracic spine
[2018-01-06] MEDS ORDERED: RESP: Albuterol Concentrated 2.5 MG/0.5 ML Neb NEB SCH (12:00)
[2018-01-06 13:30] LABS: Baso % (Auto) 0.4 % (0.0-2.0); Eos % (Auto) 0.2 % (0.0-4.0); Hematocrit 33.7 % (35.0-46.0); Hemoglobin 11.9 gm/dL (11.6-15.3); Lymph # (Auto) 0.6 th/mm3 (1.0-4.8); Lymph % (Auto) 10.1 % (9.0-44.0); Mean Corpuscular HGB Conc 35.4 % (32.0-36.0); Mean Corpuscular Hemoglobin 33.5 pg (27.0-34.0); Mean Corpuscular Volume 94.6 fL (80.0-100.0); Mean Platelet Volume 8.2 fL (7.0-11.0); Mono # (Auto) 0.4 th/mm3 (0.0-0.9); Mono % (Auto) 7.2 % (0.0-8.0); Neut % (Auto) 82.1 % (16.0-70.0); Platelet Count 241 th/mm3 (150-450); Red Blood Count 3.57 mil/mm3 (4.00-5.30); Red Cell Distribution Width 13.3 % (11.6-17.2)
--- NOTE | 2018-01-06 13:31 | MB ---
cc: Maddie Bowden MD DATE: 01/06/2018 REASON FOR CONSULTATION: Lung masses. HISTORY OF PRESENT ILLNESS: This is a 72-year-old lady with a history of hypertension, hyperlipidemia, COPD; was admitted with the complaints of lower back pain which started more than 2 weeks ago. The patient had trouble ambulating or lying down due to severe pain in the lower back and was evaluated in the ER and a CT of the lumbar spine showed a bulging disk with central canal stenosis. The patient also was sent for a thoracic CTA which demonstrated a 4.6 infrarenal aortic aneurysm as well as multiple masses in the lung [place] including a 3.4 cm x 2.4 cm central right lung mass and a 4.5 cm mass in the superior segment of the right lower lobe with subsegmental bronchial occlusion, and mediastinal adenopathy was noted. The findings were concerning for lung cancer. The patient also had some mediastinal areas that seemed to be involved. The patient states she has a cough, she has shortness of breath, but denies hemoptysis, denies recent weight loss and she has had no fevers or chills. PAST MEDICAL HISTORY: The patient's past history is significant for COPD and history of appendectomy, history of hypertension, hyperlipidemia, and hypothyroidism. HABITS: The patient smoked 1 to 2 packs per day for 55 years and quit. Alcohol use, occasional. FAMILY HISTORY: Noncontributory. MEDICATION LIST: Included: 1. Lovenox. 2. Morphine 3. Ativan. ALLERGIES: NONE WERE LISTED. REVIEW OF SYSTEMS: She has had no recent weight loss. She had some low-grade fevers. Denies nausea, vomiting, hemoptysis or hematemesis. She has had no leg swelling or calf muscle pains. She has some joint pains and lower back pain, and some anxiety attacks. PHYSICAL EXAMINATION: GENERAL: This is an elderly averagely built white female who is pale and in no acute distress. VITAL SIGNS: Blood pressure 130/70, pulse 80, respirations 22, temperature 98.2. HEENT: Head is normocephalic. Pupils reactive and equal. Tongue is moist. Nasal mucosa edematous. She has no inflammation. NECK: Supple. No venous distention. Trachea midline. No thyroid enlargement. CHEST: Equal movements with distant breath sounds, occasional wheezes in the right lung field. No crackles on either side. HEART: The heart sounds are regular, S1 and S2 with no murmur. No S3, gallop. ABDOMEN: Soft, protuberant, no mass. No organomegaly or tenderness. Bowel sounds active. EXTREMITIES: No edema. Peripheral pulses are well felt. Reflexes 1+ with no gross motor deficits. Cranial nerves are grossly intact. SKIN: No lesions observed. IMPRESSION: 1. Right lung masses, rule out malignancy. 2. Obstructive pneumonitis, right lower lobe. 3. Chronic obstructive pulmonary disease. 4. Abdominal aortic aneurysm. 5. Hypertension. PLAN: The patient has been advised that a bronchoscopy and biopsy will be necessary. A coagulation profile to be done. We will hold off on anticoagulation and pulmonary function study done at the bedside. The procedure including potential risks which include bleeding, pneumothorax, respiratory failure, etc. were discussed with her and this will be scheduled on Tuesday. Nebulized DuoNeb solution added q.i.d. and Rocephin 1 gram IV daily for the obstructive pneumonia. Thank you Dr. Jeffries for this consultation. VHarrison Bowden MD VJD/[email or web address]/kenya , 12:07 PM , 12:21 PM
[2018-01-06 13:49] LABS: Activated Partial Thrombo Time 23.1 sec (24.3-30.1); INR 1.1 Ratio; Prothrombin Time 11.5 sec (9.8-11.6)
[2018-01-06] MEDS: Lisinopril 10 MG Tablet PO SCH (14:57)
[2018-01-06] MEDS: Levothyroxine 88 MCG Tablet PO SCH (14:57)
[2018-01-06] MEDS: Dextrose 5%/NaCl 0.45% Inj 1,000 ML IV.CONT SCH (16:57)
[2018-01-06] MEDS: Sod Chloride 0.9% Inj 1,000 ML IV.CONT SCH (19:23)
[2018-01-06] MEDS: MethylPREDNISolone Sod Succinate Inj 40 MG/ML Vial IV.PUSH SCH (21:36)
[2018-01-07] MEDS: MethylPREDNISolone Sod Succinate Inj 40 MG/ML Vial IV.PUSH SCH ×4 (04:12→23:08)
[2018-01-07] MEDS: Ibuprofen 400 MG Tablet PO SCH ×3 (06:05→22:05)
[2018-01-07] MEDS: Morphine Inj 4 MG/ML Vial IV.PUSH PRN ×4 (06:05→20:05)
[2018-01-07] MEDS: Levothyroxine 88 MCG Tablet PO SCH (06:05)
--- NOTE | 2018-01-07 08:14 | P.CONNS ---
History of Present Illness Service: Neurosurgery Primary Care Provider: Tobi Jeffries DO Family Provider: Tobi Jeffries DO Chief Complaint: Back pain History of Present Illness: 72yoF presents with 4 weeks of right lower back pain and > 20 lbs weight loss. Former smoker, newly diagnosed lung mass. CT L-spine obtained and neurosurgery consulted. No weakness nor bowel or bladder, however does complain of mechanical back pain when she attempts to stand up. [facility] - History History Provided By: Patient - Medical History Medical History: Medical History (Last Reviewed 01/06/18 @ 07:17 by Jose Sandoval) High cholesterol Hypertension Hypothyroid - Surgical History Surgical History: Surgical History (Last Reviewed 01/06/18 @ 07:17 by Jose Sandoval) H/O appendicitis - Family History Family History: Family History (Last Updated 01/05/18 @ 18:42 by ERNESTINA Del Rio) Mother History of breast cancer Father History of myocardial infarction - Tobacco History Second Hand Smoke Exposure: Yes Smoking Status: Former smoker Number of Pack Years (if former smoker): 50 (Patient quit smoking 7-8 months ago ) - Alcohol History How Often Do You Have a Drink Containing Alcohol: 2 to 3 times a week - Substance Use History Substance History: No History of Abuse - Travel History Recent Travel in the [place] Within the Last 8 Weeks: No Recent Travel Out of the Country Within the Last 8 Weeks: No - Immunization History Tetanus Immunization: Unsure Hx Influenza Vaccine This Season: No Medications and Allergies Active Medications: Active Medications Acetaminophen (Tylenol) 650 mg PO Q4H PRN PRN Reason: Temp > 100.4 Al Hydroxide/Mg Hydroxide (Milk Of Magnestuardo Liq) 30 ml PO Q12H PRN PRN Reason: Mild Constipation Albuterol (Duoneb Neb (Prn)) 1 ampul NEB Q2HR NEB PRN PRN Reason: SHORTNESS OF BREATH/WHEEZING Albuterol (Albuterol Concentrated Neb) 2.5 mg NEB LOAD OUT PERSON [facility] Stop: 01/10/18 11:59 Albuterol (Duoneb Neb (Tong)) 1 ampul NEB Q6HR NEB [facility] Last Admin: 01/07/18 04:11 Dose: Not Given Clonidine HCl (Catapres) 0.1 mg PO Q6H PRN PRN Reason: SBP>180, DBP>110 Cyclobenzaprine HCl (Flexeril) 5 mg PO Q8HR [facility] Last Admin: 01/07/18 06:05 Dose: 5 mg Enalaprilat (Vasotec Inj) 1.25 mg IV.PUSH Q6H PRN PRN Reason: SBP>160, DBP>90 Dextrose/Sodium Chloride (D5w/1/2 Ns Inj) 1,000 mls @ 30 mls/hr IV.CONT .Q24H [facility] Last Admin: 01/06/18 16:57 Dose: 30 mls/hr Ceftriaxone Sodium 1,000 mg/ (Sodium Chloride) 100 mls @ 200 mls/hr IV.SIG Q24H [facility] Last Infusion: 01/06/18 15:16 Dose: Infused Ibuprofen (Motrin) 400 mg PO Q8HR [facility] Last Admin: 01/07/18 06:05 Dose: 400 mg Levothyroxine Sodium (Synthroid) 88 mcg PO DAILY@0600 [facility] Last Admin: 01/07/18 06:05 Dose: 88 mcg Lisinopril (Prinivil) 10 mg PO DAILY [facility] Last Admin: 01/06/18 14:57 Dose: 10 mg Methylprednisolone Sodium Succinate (Solumedrol Inj) 40 mg IV.PUSH Q6H [facility] Last Admin: 01/07/18 04:12 Dose: 40 mg Morphine Sulfate (Morphine Inj) 4 mg IV.PUSH Q4H PRN PRN Reason: PAIN SCALE 6 TO 10 Last Admin: 01/07/18 06:05 Dose: 4 mg Temazepam (Restoril) 15 mg PO HS PRN PRN Reason: INSOMNIA Last Admin: 01/05/18 23:05 Dose: 15 mg Allergies Allergy/AdvReac Type Severity Reaction Status Date / Time No Known Allergies Allergy Unverified 01/05/18 11:12 Home Medications Medication Instructions Recorded Confirmed Type Fish Oil 1,200 mg PO DAILY 01/06/18 01/06/18 History L-Tryroxine 88 mcg PO DAILY 01/06/18 History Vitamin B-12 1,000 mg PO DAILY 01/06/18 01/06/18 History Vitamin D3 1,000 PO DAILY 01/06/18 History allopurinol 100 mg PO DAILY 01/06/18 01/06/18 History atorvastatin 20 mg PO DAILY 01/06/18 01/06/18 History lisinopril 10 mg PO DAILY 01/06/18 01/06/18 History tolterodine 4 mg PO DAILY 01/06/18 01/06/18 History Exam Vital signs: Vital Signs 01/06/18 12:00 01/06/18 16:00 01/06/18 17:00 Temperature 98.4 F 98.4 F Pulse Rate 98 H 97 H Respiratory Rate 18 18 Blood Pressure 136/65 142/76 H Pulse Oximetry 97 92 L 01/06/18 20:00 01/07/18 00:00 01/07/18 04:00 Temperature 98 F 98.6 F 98.9 F Pulse Rate 95 H 94 H 100 H Respiratory Rate 18 18 18 Blood Pressure 132/68 138/69 135/71 Pulse Oximetry 86 L 92 L 91 L Intake & Output 01/06/18 01/07/18 01/07/18 18:59 06:59 18:59 Intake Total 930 / 930 650 / 650 Output Total 240 / 240 Balance 690 / 690 650 / 650 Intake: IV 450 / 450 650 / 650 NS Inj 1,000 ML @ 84 mls/hr IV. 350 / 350 650 / 650 CONT .[id number] TONG Rx#: [id number] Rocephin Inj 1,000 MG In NS Inj 100 / 100 100 ML @ 200 mls/hr IV.SIG Q24H TONG Rx#:[id number] Oral 480 / 480 Output: Urine 240 / 240 Other: # Voids 3 Narrative: A&O x 3 CN II-XII intact Motor 5/5 UE and LE bilaterally Difficulty raising up right leg but full strength in ip/quad Sensation intact throughout Results - Laboratory Findings CBC and BMP: 01/06/18 13:25 01/06/18 05:30 Abnormal lab findings: Abnormal Labs 01/05/18 01/05/18 01/05/18 13:05 13:15 20:02 RBC 3.83 L Hct Neut % (Auto) 80.2 H Lymph # (Auto) 0.8 L APTT Chloride 108 H Carbon Dioxide 18.7 L BUN 21 H Creatinine 1.10 H Estimated GFR 49 L Random Glucose AST 44 H Lactate Dehydrogenase Albumin 3.3 L Carcinoembryonic Ag CA 19-9 Antigen Urine Protein 100 H 01/05/18 01/05/18 01/06/18 22:45 22:45 05:30 RBC Hct Neut % (Auto) Lymph # (Auto) APTT Chloride 110 H Carbon Dioxide 20.2 L BUN 21 H Creatinine 1.10 H Estimated GFR 49 L Random Glucose 146 H AST Lactate Dehydrogenase 270 H Albumin Carcinoembryonic Ag 18.4 H CA 19-9 Antigen 653.0 H Urine Protein 01/06/18 01/06/18 01/06/18 05:30 13:25 13:25 RBC 3.75 L 3.57 L Hct 33.7 L Neut % (Auto) 81.4 H 82.1 H Lymph # (Auto) 0.7 L 0.6 L APTT 23.1 L Chloride Carbon Dioxide BUN Creatinine Estimated GFR Random Glucose AST Lactate Dehydrogenase Albumin Carcinoembryonic Ag CA 19-9 Antigen Urine Protein Assessment and Plan - Plan 72yoF with new lung mass and right low back pain. CT L-spine reviewed and not impressive. Recommend MRI T and L-spine as well as Lumbar spine Ap/lat/flex/ex xrays. Will follow.
--- NOTE | 2018-01-07 09:54 | P.PNIM ---
Subjective Interval history: Patient states no active shortness of breath at this time. No coughing. No other concerns at this time. Consents to bronchoscopy this Tuesday. Physical Exam Vital signs: Vital Signs 01/06/18 12:00 01/06/18 16:00 01/06/18 17:00 Temperature 98.4 F 98.4 F Pulse Rate 98 H 97 H Respiratory Rate 21 18 18 Blood Pressure 136/65 142/76 H Pulse Oximetry 97 92 L 01/06/18 20:00 01/07/18 00:00 01/07/18 04:00 Temperature 98 F 98.6 F 98.9 F Pulse Rate 95 H 94 H 100 H Respiratory Rate 18 18 18 Blood Pressure 132/68 138/69 135/71 Pulse Oximetry 86 L 92 L 91 L 01/07/18 09:00 Temperature Pulse Rate 90 Respiratory Rate 16 Blood Pressure Pulse Oximetry Intake & Output 01/06/18 01/07/18 01/07/18 18:59 06:59 18:59 Intake Total 930 / 930 650 / 650 Output Total 240 / 240 Balance 690 / 690 650 / 650 Intake: IV 450 / 450 650 / 650 NS Inj 1,000 ML @ 84 mls/hr IV. 350 / 350 650 / 650 CONT .[id number] JULIETH Rx#: [id number] Rocephin Inj 1,000 MG In NS Inj 100 / 100 100 ML @ 200 mls/hr IV.SIG Q24H JULIETH Rx#:[id number] Oral 480 / 480 Output: Urine 240 / 240 Other: # Voids 3 Narrative: GENERAL: Well-developed, well-nourished, in no acute distress. alert and orientated CARDIAC: Regular rhythm, regular rate. S1/S2 are heard. No murmurs gallops or rubs. LUNGS: Diminished breath sounds bilaterally No use of accessory muscles on inspiration or expiration. ABDOMEN: Soft, nontender. Nondistended. Bowel sounds heard in all 4 quadrants. No organomegaly or masses. Negative rebound, negative guarding EXTREMITIES: No edema, pulses are equal bilaterally. No cyanosis or clubbing NEUROLOGY: Mood and affect appear appropriate. Cranial nerves II through XII grossly intact. Moving all extremities, speech is clear Results - Labs CBC & Chem 7: 01/06/18 13:25 01/06/18 05:30 Laboratory Results - last 24 hr 01/06/18 01/06/18 13:25 13:25 CBC w Diff Auto diff final WBC 6.0 RBC 3.57 L Hgb 11.9 Hct 33.7 L MCV 94.6 MCH 33.5 MCHC 35.4 RDW 13.3 Plt Count 241 MPV 8.2 Neut % (Auto) 82.1 H Lymph % (Auto) 10.1 [place] % (Auto) 7.2 Eos % (Auto) 0.2 Baso % (Auto) 0.4 Neut # (Auto) 5.0 Lymph # (Auto) 0.6 L [place] # (Auto) 0.4 Eos # (Auto) 0.0 Baso # (Auto) 0.0 WBC Differential . Differential Comment . PT 11.5 INR 1.1 APTT 23.1 L Assessment and Plan - Assessment (1) Back pain Code(s): M54.9 - Dorsalgia, unspecified Status: Acute (2) Lung mass Code(s): R91.8 - Other nonspecific abnormal finding of lung field Status: Acute (3) Aneurysm Code(s): I72.9 - Aneurysm of unspecified site Status: Acute (4) Azotemia Code(s): R79.89 - Other specified abnormal findings of blood chemistry Status : Acute - Plan 72-year-old white female presents to the emergency room with progressive lower back pain with workup findings on imaging that showed 1. 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 -Obtain records from Dr. Tobi Jeffries's office for evaluation and comparison -Tumor markers actually shown on elevation in CA-19-9, CEA, LDH. CA-15-3, CA 125, AFP were negative. -May need also CT-guided biopsy depending on results of bronchoscopy and biopsy 2. Back pain -CT scan does obviously show an etiology of her discomfort being facet arthropathy, bulging discs with moderate spinal cord stenosis -Patient will likely require further evaluation, management with either physical therapy, neurosurgical consultation for recommendations -We will start with Flexeril for muscle relaxation, hot pack administration. Anti-inflammatory for pain control -Physical therapy evaluation Appreciate neurosurgical recommendations which revealed further workup with MRI of the lumbar thoracic spine. 3. 4.6 cm infrarenal aortic aneurysm -CTA indicating that it has favorable neck anatomy for endovascular repair -ER documentation indicates that there was discussion with cardiovascular surgery who indicated that the finding appear to be benign and not causing the patient discomfort. He does not foresee the patient having surgery secondary to the possible lung cancer diagnosis, but will follow up on the patient. -Patient will need strict blood pressure management 4. Azotemia, stable -Unknown whether patient has chronic versus acute renal abnormality -Maintain IV fluids -Monitor renal function 5. Hypertension, hyperlipidemia -Home medications are unknown at this time. -Vasotec/clonidine as needed -Nursing staff to obtain accurate home medication list 6. DVT prophylaxis -Sequential compression devices, avoid chemical prophylaxis secondary to patient will likely require intervention (1) Back pain Qualifiers: Back pain location: thoracic back pain Chronicity: acute Back pain laterality: bilateral Qualified Code(s): M54.6 - Pain in thoracic spine
[2018-01-07] MEDS: Lisinopril 10 MG Tablet PO SCH (09:59)
[2018-01-07] MEDS: Dextrose 5%/NaCl 0.45% Inj 1,000 ML IV.CONT SCH (12:37)
--- NOTE | 2018-01-07 17:06 | P.PN ---
Subjective Interval history: She has some pain in RUQ. C/O cough and no SOB. Off O2. Physical Exam Vital signs: Vital Signs 01/06/18 20:00 01/07/18 00:00 01/07/18 04:00 Temperature 98 F 98.6 F 98.9 F Pulse Rate 95 H 94 H 100 H Respiratory Rate 18 18 18 Blood Pressure 132/68 138/69 135/71 Pulse Oximetry 86 L 92 L 91 L 01/07/18 08:00 01/07/18 09:00 01/07/18 12:00 Temperature 97.1 F L 98 F Pulse Rate 85 90 89 Respiratory Rate 18 16 18 Blood Pressure 125/75 136/72 Pulse Oximetry 91 L 93 L 01/07/18 15:38 Temperature Pulse Rate 88 Respiratory Rate 18 Blood Pressure Pulse Oximetry Intake & Output 01/06/18 01/07/18 01/07/18 18:59 06:59 18:59 Intake Total 930 / 930 650 / 650 100 / 100 Output Total 240 / 240 Balance 690 / 690 650 / 650 100 / 100 Intake: IV 450 / 450 650 / 650 100 / 100 NS Inj 1,000 ML @ 84 mls/hr IV. 350 / 350 650 / 650 CONT .[id number] JULIETH Rx#: [id number] Rocephin Inj 1,000 MG In NS Inj 100 / 100 100 / 100 100 ML @ 200 mls/hr IV.SIG Q24H JULIETH Rx#:[id number] Oral 480 / 480 Output: Urine 240 / 240 Other: # Voids 3 Narrative: GENERAL: Well-developed, well-nourished, in no acute distress. alert and oriented CARDIAC: Regular rhythm, regular rate. S1/S2 are heard. No murmurs gallops or rubs. LUNGS: Diminished breath sounds bilaterally and mild wheeze. No use of accessory muscles . ABDOMEN: Soft, nontender. Nondistended. Bowel sounds heard in all 4 quadrants. No organomegaly or masses. Negative rebound, negative guarding EXTREMITIES: No edema, pulses are equal bilaterally. No cyanosis or clubbing NEUROLOGY: Mood and affect appear appropriate. Cranial nerves II through XII grossly intact. Moving all extremities, speech is clear Results - Labs CBC & Chem 7: 01/06/18 13:25 01/06/18 05:30 Assessment and Plan - Assessment (1) Obstructive pneumonia Code(s): J18.9 - Pneumonia, unspecified organism Status: Acute (2) Back pain Code(s): M54.9 - Dorsalgia, unspecified Status: Acute (3) Lung mass Code(s): R91.8 - Other nonspecific abnormal finding of lung field Status: Acute (4) Aneurysm Code(s): I72.9 - Aneurysm of unspecified site Status: Acute (5) Azotemia Code(s): R79.89 - Other specified abnormal findings of blood chemistry Status : Acute (6) COPD (chronic obstructive pulmonary disease) Code(s): J44.9 - Chronic obstructive pulmonary disease, unspecified Status: Acute - Plan 1. Will continue nebs qid , duoneb 2. solumedrol 40 mg BID 3. O2 2 L PRN 4. Continue antibiotic. 5. Bronchoscopy on Tuesday 6. CBC, Coag Profile. (2) Back pain Qualifiers: Back pain location: thoracic back pain Chronicity: acute Back pain laterality: bilateral Qualified Code(s): M54.6 - Pain in thoracic spine
[2018-01-08] MEDS: MethylPREDNISolone Sod Succinate Inj 40 MG/ML Vial IV.PUSH SCH ×3 (05:34→22:07)
[2018-01-08] MEDS: Levothyroxine 88 MCG Tablet PO SCH (05:38)
[2018-01-08] MEDS: Morphine Inj 4 MG/ML Vial IV.PUSH PRN ×3 (05:40→20:13)
[2018-01-08] MEDS: Ibuprofen 400 MG Tablet PO SCH ×3 (05:40→22:06)
[2018-01-08] MEDS: Lisinopril 10 MG Tablet PO SCH (09:28)
--- NOTE | 2018-01-08 10:27 | P.PNNS ---
Subjective Interval history: Patient reports persistent mechanical back pain. denies weakness or radicular symptoms. Physical Exam Vital signs: Vital Signs 01/07/18 12:00 01/07/18 15:38 01/07/18 16:00 Temperature 98 F 99 F Pulse Rate 89 88 100 H Respiratory Rate 18 18 18 Blood Pressure 136/72 141/74 H Pulse Oximetry 93 L 93 L 01/07/18 20:00 01/07/18 21:27 01/08/18 00:00 Temperature 98.7 F 97.5 F L Pulse Rate 110 H 100 H 96 H Respiratory Rate 18 16 16 Blood Pressure 135/73 140/76 Pulse Oximetry 90 L 93 L 01/08/18 03:08 01/08/18 04:00 01/08/18 05:19 Temperature 97.9 F Pulse Rate 99 H 116 H Respiratory Rate 18 18 Blood Pressure 143/73 H Pulse Oximetry 92 L 87 L 01/08/18 08:00 Temperature 98.1 F Pulse Rate 102 H Respiratory Rate 18 Blood Pressure 146/80 H Pulse Oximetry 94 L Intake & Output 01/07/18 01/08/18 01/08/18 18:59 06:59 18:59 Intake Total 100 / 100 1720 / 1720 Balance 100 / 100 1720 / 1720 Weight 63.4 kg Intake: IV 100 / 100 1000 / 1000 D5W/1/2 NS Inj 1,000 ML @ 30 1000 / 1000 mls/hr IV.CONT .Q24H JULIETH Rx#: [id number] Rocephin Inj 1,000 MG In NS Inj 100 / 100 100 ML @ 200 mls/hr IV.SIG Q24H JULIETH Rx#:[id number] Oral 720 / 720 Other: # Voids 2 Narrative: E4 AOx3 FC x4 5/5 strength in the UEs and LEs sensation intact Assessment and Plan - Plan 72yo F admitted to hospitalist service for workup of new lung mass found on CT. Upon presentation to ED, patient also with complaints of atraumatic mechanical back pain for 1 month (without radicular symptoms). Mechanical back pain -patient neurological intact without radicular pain, recommend trial of conservative therapy consisting of pain medication, physical therapy, etc. -CT L spine with diffuse spondylosis but without any lytic lesions concerning of metastatic burden -Will follow up MR imaging if obtained
--- NOTE | 2018-01-08 11:47 | P.PNIM ---
Subjective Interval history: No active shortness of breath. Ready for procedure tomorrow. Physical Exam Vital signs: Vital Signs 01/07/18 12:00 01/07/18 15:38 01/07/18 16:00 Temperature 98 F 99 F Pulse Rate 89 88 100 H Respiratory Rate 18 18 18 Blood Pressure 136/72 141/74 H Pulse Oximetry 93 L 93 L 01/07/18 20:00 01/07/18 21:27 01/08/18 00:00 Temperature 98.7 F 97.5 F L Pulse Rate 110 H 100 H 96 H Respiratory Rate 18 16 16 Blood Pressure 135/73 140/76 Pulse Oximetry 90 L 93 L 01/08/18 03:08 01/08/18 04:00 01/08/18 05:19 Temperature 97.9 F Pulse Rate 99 H 116 H Respiratory Rate 18 18 Blood Pressure 143/73 H Pulse Oximetry 92 L 87 L 01/08/18 08:00 Temperature 98.1 F Pulse Rate 102 H Respiratory Rate 18 Blood Pressure 146/80 H Pulse Oximetry 94 L Intake & Output 01/07/18 01/08/18 01/08/18 18:59 06:59 18:59 Intake Total 100 / 100 1720 / 1720 Balance 100 / 100 1720 / 1720 Weight 63.4 kg Intake: IV 100 / 100 1000 / 1000 D5W/1/2 NS Inj 1,000 ML @ 30 1000 / 1000 mls/hr IV.CONT .Q24H JULIETH Rx#: [id number] Rocephin Inj 1,000 MG In NS Inj 100 / 100 100 ML @ 200 mls/hr IV.SIG Q24H JULIETH Rx#:[id number] Oral 720 / 720 Other: # Voids 2 Narrative: GENERAL: This is a well-nourished, well-developed patient, in no apparent distress. CARDIOVASCULAR: Regular rate and rhythm without murmurs, gallops, or rubs. RESPIRATORY: Diminished breath sounds bilaterally GASTROINTESTINAL: Abdomen soft, non-tender, nondistended. Normal active bowel sounds MUSCULOSKELETAL: Extremities without clubbing, cyanosis, or edema. NEURO: Alert & Oriented x4 to person, place, time, situation. Moves all ext x4 Results - Labs CBC & Chem 7: 01/06/18 13:25 01/06/18 05:30 Assessment and Plan - Assessment (1) Back pain Code(s): M54.9 - Dorsalgia, unspecified Status: Acute (2) Lung mass Code(s): R91.8 - Other nonspecific abnormal finding of lung field Status: Acute (3) Aneurysm Code(s): I72.9 - Aneurysm of unspecified site Status: Acute (4) Azotemia Code(s): R79.89 - Other specified abnormal findings of blood chemistry Status : Acute - Plan 72-year-old white female presents to the emergency room with progressive lower back pain with workup findings on imaging that showed 1. 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 -Obtain records from Dr. Tobi Jeffries's office for evaluation and comparison -Tumor markers actually shown on elevation in CA-19-9, CEA, LDH. CA-15-3, CA 125, AFP were negative. -May need also CT-guided biopsy depending on results of bronchoscopy and biopsy 2. Back pain -CT scan does obviously show an etiology of her discomfort being facet arthropathy, bulging discs with moderate spinal cord stenosis -Patient will likely require further evaluation, management with either physical therapy, neurosurgical consultation for recommendations -We will start with Flexeril for muscle relaxation, hot pack administration. Anti-inflammatory for pain control -Physical therapy evaluation Appreciate neurosurgical recommendations which revealed further workup with MRI of the lumbar thoracic spine. 3. 4.6 cm infrarenal aortic aneurysm -CTA indicating that it has favorable neck anatomy for endovascular repair -ER documentation indicates that there was discussion with cardiovascular surgery who indicated that the finding appear to be benign and not causing the patient discomfort. He does not foresee the patient having surgery secondary to the possible lung cancer diagnosis, but will follow up on the patient. -Patient will need strict blood pressure management 4. Azotemia, stable -Unknown whether patient has chronic versus acute renal abnormality -Maintain IV fluids -Monitor renal function 5. Hypertension, hyperlipidemia -Home medications are unknown at this time. Continue with lisinopril. -Vasotec/clonidine as needed 6. DVT prophylaxis -Sequential compression devices, avoid chemical prophylaxis secondary bronchoscopy and biopsy scheduled for tomorrow Discharge Planning: Home when cleared by pulmonary (1) Back pain Qualifiers: Back pain location: thoracic back pain Chronicity: acute Back pain laterality: bilateral Qualified Code(s): M54.6 - Pain in thoracic spine
[2018-01-08] MEDS: Dextrose 5%/NaCl 0.45% Inj 1,000 ML IV.CONT SCH (15:00)
--- NOTE | 2018-01-08 16:34 | P.PN ---
Subjective Interval history: Resting quietly. Off O2 and has some back pain. No SOB at rest. Physical Exam Vital signs: Vital Signs 01/07/18 20:00 01/07/18 21:27 01/08/18 00:00 Temperature 98.7 F 97.5 F L Pulse Rate 110 H 100 H 96 H Respiratory Rate 18 16 16 Blood Pressure 135/73 140/76 Pulse Oximetry 90 L 93 L 01/08/18 03:08 01/08/18 04:00 01/08/18 05:19 Temperature 97.9 F Pulse Rate 99 H 116 H Respiratory Rate 18 18 Blood Pressure 143/73 H Pulse Oximetry 92 L 87 L 01/08/18 08:00 01/08/18 12:00 Temperature 98.1 F 97.4 F L Pulse Rate 102 H 110 H Respiratory Rate 18 18 Blood Pressure 146/80 H 143/75 H Pulse Oximetry 94 L 93 L Intake & Output 01/07/18 01/08/18 01/08/18 18:59 06:59 18:59 Intake Total 100 / 100 1720 / 1720 100 / 100 Balance 100 / 100 1720 / 1720 100 / 100 Weight 63.4 kg Intake: IV 100 / 100 1000 / 1000 100 / 100 D5W/1/2 NS Inj 1,000 ML @ 30 1000 / 1000 mls/hr IV.CONT .Q24H JULIETH Rx#: [id number] Rocephin Inj 1,000 MG In NS Inj 100 / 100 100 / 100 100 ML @ 200 mls/hr IV.SIG Q24H JULIETH Rx#:[id number] Oral 720 / 720 Other: # Voids 2 Narrative: GENERAL: This is a well-nourished, well-developed patient, in no apparent distress. CARDIOVASCULAR: Regular rate and rhythm without murmurs, gallops, or rubs. RESPIRATORY: Diminished breath sounds bilaterally. Occ Wheeze over right lung field. GASTROINTESTINAL: Abdomen soft, non-tender, nondistended. Normal active bowel sounds MUSCULOSKELETAL: Extremities without clubbing, cyanosis, or edema. NEURO: Alert & Oriented x4 to person, place, time, situation. Moves all ext x4 Results - Labs CBC & Chem 7: 01/06/18 13:25 01/06/18 05:30 Assessment and Plan - Assessment (1) Obstructive pneumonia Code(s): J18.9 - Pneumonia, unspecified organism Status: Acute (2) Back pain Code(s): M54.9 - Dorsalgia, unspecified Status: Acute (3) Lung mass Code(s): R91.8 - Other nonspecific abnormal finding of lung field Status: Acute (4) Aneurysm Code(s): I72.9 - Aneurysm of unspecified site Status: Acute (5) Azotemia Code(s): R79.89 - Other specified abnormal findings of blood chemistry Status : Acute (6) COPD (chronic obstructive pulmonary disease) Code(s): J44.9 - Chronic obstructive pulmonary disease, unspecified Status: Acute - Plan 1. Will continue nebs qid , duoneb 2. Cont solumedrol 40 mg BID 3. O2 2 L PRN 4. Continue antibiotic. as ordered 5. Bronchoscopy on Tuesday . Discussed procedure and Risks Incl pneumothorax , Resp failure, Bleeding. 6. CBC, Coag Profile. (2) Back pain Qualifiers: Back pain location: thoracic back pain Chronicity: acute Back pain laterality: bilateral Qualified Code(s): M54.6 - Pain in thoracic spine
[2018-01-09] MEDS: Morphine Inj 4 MG/ML Vial IV.PUSH PRN ×3 (03:02→13:37)
[2018-01-09] MEDS: MethylPREDNISolone Sod Succinate Inj 40 MG/ML Vial IV.PUSH SCH ×2 (05:30→13:37)
[2018-01-09] MEDS ORDERED: Chlorhexidine Gluconate 2% 1 Pack (2 Cloths) TOPICAL SCH (05:30)
[2018-01-09] MEDS ORDERED: Metoprolol Tartrate 25 MG Tablet PO SCH (05:30)
[2018-01-09] MEDS: Ibuprofen 400 MG Tablet PO SCH ×3 (05:32→23:32)
[2018-01-09] MEDS ORDERED: Sodium Chlor 0.9% Inj 500 ML IV.SIG SCH (06:00)
--- NOTE | 2018-01-09 07:40 | P.CONVS ---
History of Present Illness Service: Vascular Surgery Consult date: 01/09/18 Reason for Consult: AAA Primary Care Provider: Tobi Jeffries DO Family Provider: Tobi Jeffries DO Chief Complaint: Back pain History of Present Illness: 72yo female with 5 weeks of back pain radiating to R buttock. She is being worked up for a lung mass, suspicious for malignancy and is on schedule today for bronchoscopy. She says that years ago she had a lung mass that was stable. Concerningly, she has a 20 pound weight loss over the past few weeks that is unintentional. She had imaging that showed a 4.6cm intact infrarenal AAA. No prior knowledge of such. Review of Systems Constitutional: Reports weight loss Musculoskeletal: Reports back pain PMFSH - History History Provided By: Patient - Medical History Medical History: Medical History (Last Reviewed 01/09/18 @ 07:37 by Omar Gray MD) High cholesterol Hypertension Hypothyroid - Surgical History Surgical History: Surgical History (Last Reviewed 01/09/18 @ 07:37 by Omar Gray MD) H/O appendicitis - Family History Family History: Family History (Last Updated 01/05/18 @ 18:42 by ERNESTINA Del Rio) Mother History of breast cancer Father History of myocardial infarction - Tobacco History Second Hand Smoke Exposure: Yes Smoking Status: Former smoker Number of Pack Years (if former smoker): 50 (Patient quit smoking 7-8 months ago ) - Alcohol History How Often Do You Have a Drink Containing Alcohol: 2 to 3 times a week - Substance Use History Substance History: No History of Abuse - Travel History Recent Travel in the [place] Within the Last 8 Weeks: No Recent Travel Out of the Country Within the Last 8 Weeks: No - Immunization History Tetanus Immunization: Unsure Hx Influenza Vaccine This Season: No Medications and Allergies Active Medications: Active Medications Acetaminophen (Tylenol) 650 mg PO Q4H PRN PRN Reason: Temp > 100.4 Al Hydroxide/Mg Hydroxide (Milk Of Magnesia Liq) 30 ml PO Q12H PRN PRN Reason: Mild Constipation Albuterol (Duoneb Neb (Prn)) 1 ampul NEB Q2HR NEB PRN PRN Reason: SHORTNESS OF BREATH/WHEEZING Albuterol (Albuterol Concentrated Neb) 2.5 mg NEB [facility]UM[facility] TONG Stop: 01/10/18 11:59 Albuterol (Duoneb Neb (Tong)) 1 ampul NEB Q6HR NEB [facility] Last Admin: 01/09/18 03:44 Dose: Not Given Chlorhexidine Gluconate (Chlorhexidine 2% Cloth) 3 pack TOPICAL LUMBER TRIPPER [facility] Stop: 01/12/18 05:18 Clonidine HCl (Catapres) 0.1 mg PO Q6H PRN PRN Reason: SBP>180, DBP>110 Cyclobenzaprine HCl (Flexeril) 5 mg PO Q8HR [facility] Last Admin: 01/09/18 05:31 Dose: Not Given Enalaprilat (Vasotec Inj) 1.25 mg IV.PUSH Q6H PRN PRN Reason: SBP>160, DBP>90 Last Admin: 01/09/18 05:30 Dose: 1.25 mg Dextrose/Sodium Chloride (D5w/1/2 Ns Inj) 1,000 mls @ 30 mls/hr IV.CONT .Q24H [facility] Last Admin: 01/08/18 15:00 Dose: Not Given Ceftriaxone Sodium 1,000 mg/ (Sodium Chloride) 100 mls @ 200 mls/hr IV.SIG Q24H [facility] Last Infusion: 01/08/18 13:25 Dose: Infused Sodium Chloride (Ns Inj) 500 mls @ 30 mls/hr IV.SIG .Q10H [facility] Stop: 01/12/18 05:18 Lactated Ringer's (Lr 1000 Ml Inj) 1,000 mls @ 30 mls/hr IV.SIG .Q24H [facility] Stop: 01/12/18 05:18 Ibuprofen (Motrin) 400 mg PO Q8HR [facility] Last Admin: 01/09/18 05:32 Dose: Not Given Levothyroxine Sodium (Synthroid) 88 mcg PO DAILY@0600 [facility] Last Admin: 01/08/18 05:38 Dose: 88 mcg Lisinopril (Prinivil) 10 mg PO DAILY [facility] Last Admin: 01/08/18 09:28 Dose: 10 mg Methylprednisolone Sodium Succinate (Solumedrol Inj) 40 mg IV.PUSH Q8HR [facility] Last Admin: 01/09/18 05:30 Dose: 40 mg Metoprolol Tartrate (Lopressor) 25 mg PO LUMBER TRIPPER [facility] Stop: 01/12/18 05:18 Morphine Sulfate (Morphine Inj) 4 mg IV.PUSH Q4H PRN PRN Reason: PAIN SCALE 6 TO 10 Last Admin: 01/09/18 03:02 Dose: 4 mg Povidone Iodine (Betadine 5% Antisepsis Kit) 1 applicatio EACH NARE [facility]IPPER TONG Stop: 01/12/18 05:18 Temazepam (Restoril) 15 mg PO HS PRN PRN Reason: INSOMNIA Last Admin: 01/05/18 23:05 Dose: 15 mg Allergies Allergy/AdvReac Type Severity Reaction Status Date / Time No Known Allergies Allergy Unverified 01/05/18 11:12 Home Medications Medication Instructions Recorded Confirmed Type Fish Oil 1,200 mg PO DAILY 01/06/18 01/06/18 History L-Tryroxine 88 mcg PO DAILY 01/06/18 History Vitamin B-12 1,000 mg PO DAILY 01/06/18 01/06/18 History Vitamin D3 1,000 PO DAILY 01/06/18 History allopurinol 100 mg PO DAILY 01/06/18 01/06/18 History atorvastatin 20 mg PO DAILY 01/06/18 01/06/18 History lisinopril 10 mg PO DAILY 01/06/18 01/06/18 History tolterodine 4 mg PO DAILY 01/06/18 01/06/18 History Physical Exam Vital Signs / I&O: Vital Signs 01/08/18 08:00 01/08/18 12:00 01/08/18 16:00 Temperature 98.1 F 97.4 F L 98.6 F Pulse Rate 102 H 110 H 88 Respiratory Rate 18 18 18 Blood Pressure 146/80 H 143/75 H 178/92 H Pulse Oximetry 94 L 93 L 95 01/08/18 20:00 01/08/18 20:48 01/09/18 00:00 Temperature 98.4 F 99.6 F Pulse Rate 95 H 101 H Respiratory Rate 20 18 Blood Pressure 159/91 H 169/95 H Pulse Oximetry 97 95 95 01/09/18 04:00 Temperature 97.1 F L Pulse Rate 85 Respiratory Rate 18 Blood Pressure 163/91 H Pulse Oximetry 95 Intake & Output 01/08/18 01/09/18 01/09/18 18:59 06:59 18:59 Intake Total 100 / 100 Balance 100 / 100 Weight 63 kg Intake: IV 100 / 100 Rocephin Inj 1,000 MG In NS Inj 100 / 100 100 ML @ 200 mls/hr IV.SIG Q24H [facility] Rx#:[id number] Other: # Voids 1 1 Date of Last Bowel Movement 01/08/18 Neuro: alert, oriented, no distress HEENT: NC/AT Neck: trachea midline Heart: reg rate, no M Lungs: clear B Abdomen: nontender. Palpable pulsatile supraumbilical mass, nontender Assessment and Plan - Plan asymptomatic incidentally found 4.6 cm infrarenal AAA Would be amenable to EVAR, but clearly this is lower priority than her potential lung malignancy. Will follow while in house but likely can be addressed expeditiously as outpatient if ever. Omar Gray MD FACS [employer] loom operator apprentice [facility] - Heart and V[facility] Surgery [facility] [phone]
[2018-01-09] MEDS: Lisinopril 10 MG Tablet PO SCH (08:28)
[2018-01-09] MEDS ORDERED: Lidocaine PF 1% Inj 5 ML Syringe INFILTRATN ONE (12:00)
[2018-01-09] MEDS ORDERED: Esmolol Bolus Inj 100 MG/10 ML Vial IV.PUSH ONE (12:00)
[2018-01-09] MEDS ORDERED: Succinylcholine Inj 100 MG/5 ML Syringe IV.PUSH ONE (12:00)
[2018-01-09] MEDS ORDERED: fentaNYL Citrate Inj 100 MCG/2 ML Ampul ONE (12:30)
--- NOTE | 2018-01-09 13:03 | MP ---
cc: Maddie Bowden MD DATE OF OPERATION: 01/09/2018 DATE OF PROCEDURE: 01/09/2018 PROCEDURE: Fiberoptic bronchoscopy with biopsy, brushings and washings. PREOPERATIVE DIAGNOSIS: Right lung masses. POSTOPERATIVE DIAGNOSIS: Right lung masses, rule out malignancy. ANESTHESIA: General with intubation. SURGEON: Maddie Bowden MD PROCEDURE AND FINDINGS: The patient was intubated under general anesthesia following which the Olympus IT 180 bronchoscope was used to visualize the bronchi. The scope was advanced through the endotracheal tube into the trachea. The trachea and janie appeared normal. The scope was then advanced into the right mainstem and right upper lobe segmental bronchi. The right upper lobe segmental bronchi demonstrated no endobronchial lesions. There were a few mucoid secretions, which were suctioned out. Next, the scope was advanced to the right middle lobe segmental bronchi. Right middle lobe segmental bronchi demonstrated some bloody secretions and there was narrowing of the lumen of the bronchus with mucosal ridging and edema. Next, the scope was advanced was the right lower lobe segmental bronchi. The right lower lobe segmental bronchi were occluded by over 50% with an irregular mucosal lesion which was friable and bled easily to touch. No discrete mass was identified, but biopsies were done from this area as well as brushings for cytology and washings were done for cytology and micro. There was mild bleeding observed, controlled with epinephrine solution. The scope was then advanced toward the left main stem bronchus. The left main stem bronchus, within 1 cm of the janie, had an irregular mucosal lesion which was also friable and biopsies were done from this area and saline washings were done. The scope was advanced towards the left upper lobe bronchus, but the left upper lobe bronchial opening was narrowed and the scope could not be advanced further. Saline washings were done and the procedure was then terminated. The patient tolerated the procedure well. Maddie Bowden MD VJD/ch , 12:08 PM , 12:17 PM
--- NOTE | 2018-01-09 13:15 | XR ---
EXAM DATE: 01/09/2018 1:09 PM EDT AGE/SEX: 72 years / Female INDICATIONS: Evaluate for pneumothorax. Shortness of breath. CLINICAL DATA: This is the patient's initial encounter. Patient reports that signs and symptoms have been present for 1 day and indicates a pain score of 0/10. MEDICAL/SURGICAL HISTORY: Hypertension. Appendectomy. COMPARISON: [facility], XR CHEST PA AND LAT, 08/16/2017. . FINDINGS: Portable upright expiratory view of the chest demonstrates a normal-sized cardiac silhouette with carole cification of the aorta. There is subsegmental atelectasis at the lung bases. No pneumothorax or pleu ral effusion is identified. Bones demonstrate no acute abnormality. CONCLUSION: No pneumothorax is identified. Electronically signed by: Blake Turcios MD 01/09/2018 1:13 PM EDT
[2018-01-09] MEDS ORDERED: Naloxone Inj 0.4 MG/ML Vial IV.PUSH PRN (14:20)
[2018-01-09] MEDS ORDERED: Morphine Inj 4 MG/ML Vial IV.PUSH PRN ×3 (14:20→16:00)
[2018-01-09] MEDS ORDERED: Bisacodyl 10 MG Supp RECTAL PRN (14:23)
--- NOTE | 2018-01-09 14:24 | P.PNIM ---
Subjective Interval history: 72-year-old female with known history of hypertension, hyperlipidemia , history of tobacco use, hypothyroidism who presented to the hospital because of back pain. Patient states that she started having lower back pain approximately 3 weeks ago where progressively got worse to where it was very difficult and painful for her to go from a sitting or laying position to a standing position she went to her prior medical doctor's office 2 weeks ago to get her back evaluated. At that time she indicates that her primary medical doctor prescribed her an antidepressant. Her back pain never improved so she came to the emergency department for evaluation. Patient had workup done and found multiple medical problems in reference to her back pain. Patient has CT scan done which did indicate a disc bulge at L4-L5 with moderate central canal stenosis. Patient denied any neurological symptoms to include weakness, ambulation difficulty, paresthesia, paralysis, loss of bowel or bladder control. The CT also showed abdominal aortic aneurysm measuring 4.8 cm. Because of that reason. A thoracic CTA was performed which did indicate a 4.6 infrarenal aortic aneurysm with favorable neck anatomy for endovascular repair. The ER physician assistant grocery store manager did contact cardiovascular surgery Dr. Abel, who indicated that the finding appears to be benign and not the cause of the patient's discomfort. He did not proceed the patient having surgery secondary to the possible lung cancer diagnosis is indicated that he would continue to follow up on the patient. However, because of that CT of the thorax patient was found to have multiple lung masses seen measuring 3.4 x 2.4 central right lung mass, 4.5 x 2.6 central mass in the superior segment of the right lower lobe associated with subsegmental bronchial occlusion. There was also bulky mediastinal adenopathy. Findings were concerning for primary lung neoplasm and mediastinum metastasis. Patient indicates that her primary medical doctor usually does chest x-rays on a annual basis and the last time she was there she indicates that she was told that they have been monitoring something in her chest x-ray that has not changed. She cannot be more specific about it. Patient states that the last time she was at her primary medical doctor's office 2 weeks ago she had a 22 pound weight loss as compared to the last time she was seen there. Patient denies any other symptoms other than the back pain and difficulty in movement. She denies any cough, congestion, shortness of breath, dyspnea, hemoptysis, abdominal pain, nausea, vomiting. 8-17 72-year-old female who is seen as a low back pain. Lung mass. Patient laying in bed. Stating that he still having significant pain in her back with difficulty with moving. Patient denies any bladder or fecal incontinence. Vital signs Are stable, patient remains afebrile. 01-07 Patient states no active shortness of breath at this time. No coughing. No other concerns at this time. Consents to bronchoscopy this Tuesday. 01-08 No active shortness of breath. Ready for procedure tomorrow. 01-09 HAD BRONCHOSCOPY TODAY WITH LUNG BIOPSY COMPLAINS OF BACK PAIN SEEN BY VASCULAR CAN HAVE FURTHER WORK UP OUTPATIENT WILL GET MRI OF THORACIC AND LUMBAR AREAS PAIN CONTROL AND TRY ROBAXIN AM LABS PAIN CONTROL Physical Exam Vital signs: Vital Signs 01/08/18 16:00 01/08/18 20:00 01/08/18 20:48 Temperature 98.6 F 98.4 F Pulse Rate 88 95 H Respiratory Rate 18 20 Blood Pressure 178/92 H 159/91 H Pulse Oximetry 95 97 95 01/09/18 00:00 01/09/18 04:00 01/09/18 08:00 Temperature 99.6 F 97.1 F L 98.9 F Pulse Rate 101 H 85 94 H Respiratory Rate 18 18 18 Blood Pressure 169/95 H 163/91 H 157/86 H Pulse Oximetry 95 95 94 L 01/09/18 10:24 01/09/18 12:25 01/09/18 12:45 Temperature 97.5 F L 98.0 F Pulse Rate 94 H 119 H 119 H Respiratory Rate 18 22 22 Blood Pressure 152/88 H 176/88 H 121/58 L Pulse Oximetry 93 L 94 L 93 L 01/09/18 13:05 Temperature Pulse Rate 117 H Respiratory Rate 20 Blood Pressure 109/55 L Pulse Oximetry 92 L Intake & Output 01/08/18 01/09/18 01/09/18 18:59 06:59 18:59 Intake Total 100 / 100 Balance 100 / 100 Weight 63 kg Intake: IV 100 / 100 Rocephin Inj 1,000 MG In NS Inj 100 / 100 100 ML @ 200 mls/hr IV.SIG Q24H JULIETH Rx#:[id number] Other: # Voids 1 1 Date of Last Bowel Movement 01/08/18 Narrative: GENERAL: This is a well-nourished, well-developed patient, in no apparent distress. CARDIOVASCULAR: Regular rate and rhythm without murmurs, gallops, or rubs. RESPIRATORY: Diminished breath sounds bilaterally. Occ Wheeze over right lung field. GASTROINTESTINAL: Abdomen soft, non-tender, nondistended. Normal active bowel sounds MUSCULOSKELETAL: Extremities without clubbing, cyanosis, or edema. NEURO: Alert & Oriented x4 to person, place, time, situation. Moves all ext x4 Results - Labs CBC & Chem 7: 01/06/18 13:25 01/06/18 05:30 - Imaging Impressions Chest X-Ray 01/09/18 12:05 CONCLUSION: No pneumothorax is identified. - Procedures 01/09/2018 DATE OF PROCEDURE: 01/09/2018 PROCEDURE: Fiberoptic bronchoscopy with biopsy, brushings and washings. PREOPERATIVE DIAGNOSIS: Right lung masses. POSTOPERATIVE DIAGNOSIS: Right lung masses, rule out malignancy. ANESTHESIA: General with intubation. SURGEON: Maddie Bowden MD PROCEDURE AND FINDINGS: The patient was intubated under general anesthesia following which the Olympus IT 180 bronchoscope was used to visualize the bronchi. The scope was advanced through the endotracheal tube into the trachea. The trachea and janie appeared normal. The scope was then advanced into the right mainstem and right upper lobe segmental bronchi. The right upper lobe segmental bronchi demonstrated no endobronchial lesions. There were a few mucoid secretions, which were suctioned out. Next, the scope was advanced to the right middle lobe segmental bronchi. Right middle lobe segmental bronchi demonstrated some bloody secretions and there was narrowing of the lumen of the bronchus with mucosal ridging and edema. Next, the scope was advanced was the right lower lobe segmental bronchi. The right lower lobe segmental bronchi were occluded by over 50% with an irregular mucosal lesion which was friable and bled easily to touch. No discrete mass was identified, but biopsies were done from this area as well as brushings for cytology and washings were done for cytology and micro. There was mild bleeding observed, controlled with epinephrine solution. The scope was then advanced toward the left main stem bronchus. The left main stem bronchus, within 1 cm of the janie, had an irregular mucosal lesion which was also friable and biopsies were done from this area and saline washings were done. The scope was advanced towards the left upper lobe bronchus, but the left upper lobe bronchial opening was narrowed and the scope could not be advanced further. Saline washings were done and the procedure was then terminated. The patient tolerated the procedure well. Maddie Bowden MD Assessment and Plan - Assessment (1) Back pain Code(s): M54.9 - Dorsalgia, unspecified Status: Acute (2) Lung mass Code(s): R91.8 - Other nonspecific abnormal finding of lung field Status: Acute (3) Aneurysm Code(s): I72.9 - Aneurysm of unspecified site Status: Acute (4) Azotemia Code(s): R79.89 - Other specified abnormal findings of blood chemistry Status : Acute - Plan 72-year-old white female presents to the emergency room with progressive lower back pain with workup findings on imaging that showed 1. 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 -Obtain records from Dr. Tobi Jeffries's office for evaluation and comparison -Tumor markers actually shown on elevation in CA-19-9, CEA, LDH. CA-15-3, CA 125, AFP were negative. -May need also CT-guided biopsy depending on results of bronchoscopy and biopsy HAD BRONCHOSCOPY TODAY 2. Back pain -CT scan does obviously show an etiology of her discomfort being facet arthropathy, bulging discs with moderate spinal cord stenosis -Patient will likely require further evaluation, management with either physical therapy, neurosurgical consultation for recommendations -We will start with Flexeril for muscle relaxation, hot pack administration. Anti-inflammatory for pain control -Physical therapy evaluation Appreciate neurosurgical recommendations which revealed further workup with MRI of the lumbar thoracic spine. WILL GET MRIS OF LUMBAR AND THORACIC 3. 4.6 cm infrarenal aortic aneurysm -CTA indicating that it has favorable neck anatomy for endovascular repair -ER documentation indicates that there was discussion with cardiovascular surgery who indicated that the finding appear to be benign and not causing the patient discomfort. He does not foresee the patient having surgery secondary to the possible lung cancer diagnosis, but will follow up on the patient. -Patient will need strict blood pressure management FOLLOW UP OUTPATIENT 4. Azotemia, stable -Unknown whether patient has chronic versus acute renal abnormality -Maintain IV fluids -Monitor renal function 5. Hypertension, hyperlipidemia -Home medications are unknown at this time. Continue with lisinopril. -Vasotec/clonidine as needed 6. DVT prophylaxis -Sequential compression devices, avoid chemical prophylaxis secondary bronchoscopy and biopsy scheduled for tomorrow Discharge Planning: Home when cleared by pulmonary ELEVATED CA 19-9 WILL CONSULT ONCOLOGY Code Status: FULL CODE Discussed Condition With: RN AND PT AND CM Discharge Planning: NEEDS CLEARANCE BY ALL (1) Back pain Qualifiers: Back pain location: thoracic back pain Chronicity: acute Back pain laterality: bilateral Qualified Code(s): M54.6 - Pain in thoracic spine
--- NOTE | 2018-01-09 15:59 | MR ---
EXAM DATE: 01/09/2018 3:51 PM EDT AGE/SEX: 72 years / Female INDICATIONS: . Back pain. CLINICAL DATA: This is the patient's subsequent encounter. Patient reports that signs and symptoms h ave been present for 4 - 6 days and indicates a pain score of 3/10. MEDICAL/SURGICAL HISTORY: Hypertension. Appendectomy. COMPARISON: No prior exams available for comparison. TECHNIQUE: Multiplanar, multisequence MRI of the lumbar spine was performed without contrast. Patie nt was scanned in a sitting position; neutral, flexion, and extension scans were performed in the sa gittal plane. FINDINGS: Sagittal images demonstrate normal vertebral body alignment and curvature. There are multiple foci of marrow replacement throughout the entire lumbar spine involving the sacrum is well characteristic of metastatic disease. These are osteosclerotic on the CT scan and may reflect breast carcinoma. No epi dural soft tissue component is identified. The conus terminates normally. Axial images were performed from T12-L1 through L5-S1. T12-L1: No significant abnormalities identified. L1-L2: No significant abnormalities identified. L2-L3: No significant abnormalities identified. L3-L4: No significant abnormalities identified. L4-L5: There is mild diffuse annular bulge of the disc. The neural foramina are clear bilaterally. T here is no significant spinal canal stenosis. There is moderate facet arthritis bilaterally with liga mentum flavum hypertrophy. L5-S1: There is no evidence of disc protrusion or spinal canal stenosis. There is severe facet arthr itis bilaterally with ligamentum flavum hypertrophy impinging on the thecal sac. The neural foramina are clear bilaterally. CONCLUSION: 1. 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 Electronically signed by: Calos Rodríguez MD 01/09/2018 3:57 PM EDT
--- NOTE | 2018-01-09 16:00 | MR ---
EXAM DATE: 01/09/2018 3:41 PM EDT AGE/SEX: 72 years / Female INDICATIONS: . Back pain. CLINICAL DATA: This is the patient's subsequent encounter. Patient reports that signs and symptoms h ave been present for 4 - 6 days and indicates a pain score of 3/10. MEDICAL/SURGICAL HISTORY: Hypertension. Appendectomy. COMPARISON: [facility], CTA THOR ABD AORTA W CONTRAST W 3D, 01/05/2018. . TECHNIQUE: Multiplanar, multisequence MRI of the thoracic spine was performed. FINDINGS: Vertebrae: Vertebral body height is maintained body bone marrow signal is diffusely abnormal with ar eas of decreased T1 and increased T2 signal throughout all of the visible vertebral bodies and within some of the posterior elements including the T9 spinous process. Endplate osteophytes are present at multiple levels. Alignment: No anterolisthesis or retrolisthesis. Cord: Normal signal. T1-T2: No disc herniation, canal stenosis, or neural foraminal stenosis. T2-T3: No disc herniation, canal stenosis, or neural foraminal stenosis. T3-T4: No disc herniation, canal stenosis, or neural foraminal stenosis. T4-T5: No disc herniation, canal stenosis, or neural foraminal stenosis. T5-T6: No disc herniation, canal stenosis, or neural foraminal stenosis. T6-T7: No disc herniation, canal stenosis, or neural foraminal stenosis. T7-T8: No disc herniation, canal stenosis, or neural foraminal stenosis. T8-T9: No disc herniation, canal stenosis, or neural foraminal stenosis. T9-T10: No disc herniation, canal stenosis, or neural foraminal stenosis. T10-T11: No disc herniation, canal stenosis, or neural foraminal stenosis. T11-T12: No disc herniation, canal stenosis, or neural foraminal stenosis. T12-L1: No disc herniation, canal stenosis, or neural foraminal stenosis. Other: There is partial visualization of the mediastinal lymphadenopathy documented on the prior CT. There is volume loss in the right lower lobe. CONCLUSION: 1. Diffuse abnormal bone marrow signal with an appearance characteristic of metastatic disease. No p athologic fracture is identified. 2. No spinal canal stenosis or neural foraminal stenosis is present. 3. There is partial visualization of the previously documented mediastinal lymphadenopathy and there is likely increased atelectasis of the right lower lobe compared to the study from 4 days ago. Electronically signed by: Blake Turcios MD 01/09/2018 3:58 PM EDT
--- NOTE | 2018-01-09 17:30 | P.PNNS ---
Subjective Interval history: with persistent mechanical back pain Physical Exam Vital signs: Vital Signs 01/08/18 20:00 01/08/18 20:48 01/09/18 00:00 Temperature 98.4 F 99.6 F Pulse Rate 95 H 101 H Respiratory Rate 20 18 Blood Pressure 159/91 H 169/95 H Pulse Oximetry 97 95 95 01/09/18 04:00 01/09/18 08:00 01/09/18 10:24 Temperature 97.1 F L 98.9 F 97.5 F L Pulse Rate 85 94 H 94 H Respiratory Rate 18 18 18 Blood Pressure 163/91 H 157/86 H 152/88 H Pulse Oximetry 95 94 L 93 L 01/09/18 12:25 01/09/18 12:45 01/09/18 13:05 Temperature 98.0 F Pulse Rate 119 H 119 H 117 H Respiratory Rate 22 22 20 Blood Pressure 176/88 H 121/58 L 109/55 L Pulse Oximetry 94 L 93 L 92 L 01/09/18 15:58 Temperature 98.5 F Pulse Rate 95 H Respiratory Rate 18 Blood Pressure 159/95 H Pulse Oximetry 96 Intake & Output 01/08/18 01/09/18 01/09/18 18:59 06:59 18:59 Intake Total 100 / 100 Balance 100 / 100 Weight 63 kg Intake: IV 100 / 100 Rocephin Inj 1,000 MG In NS Inj 100 / 100 100 ML @ 200 mls/hr IV.SIG Q24H JULIETH Rx#:[id number] Other: # Voids 1 1 Date of Last Bowel Movement 01/08/18 Narrative: E4 Aox3 Fcx4 5/5 strength in the UEs and LEs Assessment and Plan - Plan A/P: 72yo F admitted to hospitalist service for workup of new lung mass found on CT. MR imaging obtained due to patient with acute onset mechanical back pain. MRI thoracic/lumbar spine consistent with diffuse metastatic vertebral body lesions. Without any significant central or foraminal stenosis, requiring surgical intervention Diffuse metastatic disease -without surgical lesions on thoracic or lumbar MR -recommend MRI brain for metastatic workup -recommend conservative management of back pain. Consider radiation oncology consultation for palliative radiation to spine for pain control
[2018-01-09] MEDS: Dextrose 5%/NaCl 0.45% Inj 1,000 ML IV.CONT SCH (17:51)
[2018-01-09] MEDS: Methocarbamol 500 MG Tablet PO SCH ×2 (18:36→23:32)
--- NOTE | 2018-01-09 20:05 | MB ---
cc: Fran Mckee MD DATE: 01/09/2018 PRIMARY PHYSICIAN: Tobi Jeffries DO REFERRING PHYSICIAN: Jay Robertson DO PIANO MACHINE OPERATOR: Maddie Bowden MD REASON FOR CONSULTATION: Consult requested by Dr. Robertson for evaluation of elevated tumor marker CA 19-9 and right lung masses. HISTORY OF PRESENT ILLNESS: Claire is a 72-year-old very pleasant white female. She has a history of hypertension, hypothyroidism and cigarette smoking. She stated she was smoking cigarettes since age 16 and quit about 7-8 months ago. 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 She stated that she was in her usual status of health up until 5 weeks ago. She developed severe low back pain. She stated that when she stands up, the pain improves but when she is in bed, she has severe pain and it is sometimes very difficult for her to roll over or turn in the bed. With these symptoms, she went to see her primary physician, Dr. Tobi Jeffries. She was prescribed some medications; however, her pain did not resolve and it was getting worse. She decided to come to the emergency room on 01/05/2018 for further evaluation. In the emergency room, the patient underwent workup with an x-ray of the hip since she was complaining of low back pain radiating to the right side. The x-ray of the hip was negative. A CT of the lumbar spine showed an abdominal aortic aneurysm of 4.8 cm. There was broad-based disk bulging noted at L2-L3, L3-L4 and L4-L5. There was facet arthropathy noted with moderate central canal stenosis. The patient was admitted to the hospital. She underwent neurosurgical and vascular surgery evaluations. Dr. Gray from vascular surgery saw the patient. He did not think that her back pain was due to the abdominal aortic aneurysm and he had recommended just conservative management. Neurosurgery also has evaluated the patient. They recommended to get an MRI of the thoracic and lumbar spine, which was done today. She had a CT angiogram of the thoracic and abdominal aorta, which showed an abdominal aortic aneurysm with no dissection. Incidentally, it also showed a 3.4 cm central right lung mass with an adjacent 4.5 cm central mass in the superior segment of the right lower lobe. There was associated occlusion of the segmental branches of the right lower lobe noted. There were also multiple mediastinal enlarged lymph nodes. The largest was 3.2 cm, the other was 2.8 and the third one was 2.7 cm. There was a 1 cm soft tissue density mass noted in the superior anterior right chest wall. There was no evidence of liver, pancreas or spleen masses noted. The adrenal glands were unremarkable. Dr. Bowden, supervisor pressing department, was consulted for the lung masses. He had recommended a bronchoscopy, which was done today. The patient had tumor markers and CA 19-9 was very high and I have been asked to see her for further evaluation. REVIEW OF SYSTEMS: The patient has been complaining of severe lower back pain which is radiating to the right side. She states that it is difficult for her to roll over or turn in the bed, but once she stands up, the pain gets better. She has been getting morphine injections and also oxycodone. She denies any cough or shortness of breath; however, she states that she had lost 20 pounds in the last few months. She denies any hemoptysis. The rest of the review of systems is negative. PAST MEDICAL HISTORY: Hypothyroidism, hypertension. PAST SURGICAL HISTORY: Appendectomy at the age of 16. ALLERGIES: NONE. MEDICATIONS: Prior to coming to the hospital were levothyroxine and blood pressure medication. She could not recall the name. FAMILY HISTORY: Father from [place]. Mother from a stroke. The patient has 2 brothers, 3 sisters, 1 daughter and no sons. All are alive and well. She does not have any family history of any malignancy. SOCIAL HISTORY: The patient is . Her is 86 years old. The patient stated that she had been smoking 1 pack a day since age 16. However, lately she had cut down to 1 pack every 3-4 days, but finally she quit 7-8 months ago. Occasionally drinks alcohol. She used to work as a container packer operator and has been exposed to secondhand smoking. PHYSICAL EXAMINATION: GENERAL: A well-developed, well-nourished white female in no apparent distress. VITAL SIGNS: Temperature 98.5, heart rate 95, blood pressure 159/95, O2 saturation 96%. HEENT: PERRLA. EOMI. Anicteric. No oral lesions noted. NECK: No lymphadenopathy noted. LUNGS: Clear. No wheeze, rhonchi or rales. CARDIOVASCULAR: Regular rate and rhythm. ABDOMEN: Soft, nontender. No hepatosplenomegaly. EXTREMITIES: No pedal edema. NEUROLOGIC: Awake, alert, oriented x3. BACK: The patient has point tenderness in the lumbar spine. SKIN: No significant lesions noted. ASSESSMENT: Two central right lung masses. One is 4.5 cm and the other one is 3.4 cm with extensive mediastinal lymphadenopathy and metastasis to the thoracic and lumbar spine. In the background of cigarette smoking and also exposure to occupational secondhand smoking, this is most likely consistent with bronchogenic carcinoma until proven otherwise. PLAN: I have reviewed her available records and I had an extensive discussion with the patient regarding the CAT scan and the MRI findings. She had CT angiogram of the thoracic and abdominal aorta which showed an aortic aneurysm, but there is no dissection noted. Incidentally, she has right lung masses and extensive mediastinal lymphadenopathy. The MRI of the thoracic spine and lumbar spine which were done today showed extensive bone metastasis, but there is no evidence of cord compression. She underwent bronchoscopy today by Dr. Bowden. She was found to have an endobronchial lesion in the right lower lobe bronchus. Multiple biopsies were obtained along with brushing and washings were done. Also, she was found to have an irregular mucosal lesion noted in the left main stem bronchus within 1 cm of the janie. Multiple biopsies were obtained from that area as well along with washings. The pathology report is still pending. I have also reviewed the laboratory results. The CBC is normal except the hematocrit is mildly low at 33.7. The comprehensive metabolic profile which was done at the time of admission showed is normal except chloride was elevated at 108, bicarbonate was low at 18.7, BUN was elevated at 21, creatinine was also elevated at 1.1 and GFR was low 49. AST was mildly elevated at 44. Albumin was low at 3.3. She had multiple tumor markers done. The alpha fetoprotein is normal at 3.8. The CA 15-3 tumor marker is normal at 11.5. The CA-125 is also normal at 7.1. However, the CEA is high at 18.4, normal is zero to 4. The CA 19-9 is elevated at 653, upper limit of normal 35. Both of these markers are high, indicating that most likely we are dealing with non-small cell lung cancer. She has stage IV non-small cell lung cancer, which is not curable but is treatable. My recommendation is to get the PET scan as an outpatient along with the MRI of the brain to fully stage her lung cancer. We will wait for the pathology results to come back to discuss the systemic treatment options. Given that she has severe low back pain radiating to the right side, my recommendation is to consult an interventional radiologist for palliative radiation therapy to the painful lumbar spine metastasis. Once we have the final pathology report available, then we will discuss with the patient regarding the systemic treatment, which will be either targeted therapy if she has any service car driver mutations or systemic chemotherapy. The patient stated that whether it is worth going through the treatment. We discussed that the other option would be best supportive care with hospice. I have encouraged her to discuss with her and also her daughter, who is the only child and lives in [place], regarding systemic treatment versus best supportive care with hospice. Of course, she was overwhelmed with the information that I gave to her. She is still trying to grasp all this information and will make a decision later on, which is very reasonable. Regarding pain management, I will start her on long-acting morphine 15 mg to be given every 12 hours. She can continue to have morphine injections and we will convert this into oral morphine eventually. We will also start her on Decadron to control some of the back pain, and also, it will be helpful during her radiation therapy. Thank you for asking my opinion. MD ANGELA Peña/piper , 05:30 PM , 06:00 PM ROBY
[2018-01-09] MEDS: Levothyroxine 88 MCG Tablet PO SCH (20:34)
[2018-01-09] MEDS: Morphine Sulfate 15 MG SR Tablet PO SCH (20:35)
[2018-01-09] MEDS: Senna/Docusate Sodium 8.6/50 MG Tablet PO SCH (20:36)
[2018-01-10] MEDS: oxyCODONE/Acetaminophen 10/325 Tablet PO PRN (05:09)
[2018-01-10] MEDS: Ibuprofen 400 MG Tablet PO SCH ×3 (05:10→23:18)
[2018-01-10] MEDS: Methocarbamol 500 MG Tablet PO SCH ×3 (05:10→23:18)
[2018-01-10] MEDS: Levothyroxine 88 MCG Tablet PO SCH (06:41)
[2018-01-10] MEDS: Lisinopril 10 MG Tablet PO SCH (08:37)
[2018-01-10] MEDS: Morphine Sulfate 15 MG SR Tablet PO SCH ×2 (08:37→20:42)
[2018-01-10] MEDS: Senna/Docusate Sodium 8.6/50 MG Tablet PO SCH ×2 (08:37→20:51)
[2018-01-10 10:37] LABS: Baso % (Auto) 0.1 % (0.0-2.0); Hematocrit 34.8 % (35.0-46.0); Hemoglobin 11.9 gm/dL (11.6-15.3); Lymph # (Auto) 0.3 th/mm3 (1.0-4.8); Lymph % (Auto) 4.6 % (9.0-44.0); Mean Corpuscular HGB Conc 34.2 % (32.0-36.0); Mean Corpuscular Hemoglobin 32.9 pg (27.0-34.0); Mean Platelet Volume 8.3 fL (7.0-11.0); Mono # (Auto) 0.6 th/mm3 (0.0-0.9); Mono % (Auto) 7.9 % (0.0-8.0); Neut # (Auto) 6.4 th/mm3 (1.8-7.7); Neut % (Auto) 87.4 % (16.0-70.0); Platelet Count 276 th/mm3 (150-450); Red Blood Count 3.63 mil/mm3 (4.00-5.30); Red Cell Distribution Width 13.6 % (11.6-17.2); White Blood Count 7.4 th/mm3 (4.0-11.0)
--- NOTE | 2018-01-10 10:40 | P.PNIM ---
Subjective Interval history: 72-year-old female with known history of hypertension, hyperlipidemia , history of tobacco use, hypothyroidism who presented to the hospital because of back pain. Patient states that she started having lower back pain approximately 3 weeks ago where progressively got worse to where it was very difficult and painful for her to go from a sitting or laying position to a standing position she went to her prior medical doctor's office 2 weeks ago to get her back evaluated. At that time she indicates that her primary medical doctor prescribed her an antidepressant. Her back pain never improved so she came to the emergency department for evaluation. Patient had workup done and found multiple medical problems in reference to her back pain. Patient has CT scan done which did indicate a disc bulge at L4-L5 with moderate central canal stenosis. Patient denied any neurological symptoms to include weakness, ambulation difficulty, paresthesia, paralysis, loss of bowel or bladder control. The CT also showed abdominal aortic aneurysm measuring 4.8 cm. Because of that reason. A thoracic CTA was performed which did indicate a 4.6 infrarenal aortic aneurysm with favorable neck anatomy for endovascular repair. The ER physician assistant operator did contact cardiovascular surgery Dr. Abel, who indicated that the finding appears to be benign and not the cause of the patient's discomfort. He did not proceed the patient having surgery secondary to the possible lung cancer diagnosis is indicated that he would continue to follow up on the patient. However, because of that CT of the thorax patient was found to have multiple lung masses seen measuring 3.4 x 2.4 central right lung mass, 4.5 x 2.6 central mass in the superior segment of the right lower lobe associated with subsegmental bronchial occlusion. There was also bulky mediastinal adenopathy. Findings were concerning for primary lung neoplasm and mediastinum metastasis. Patient indicates that her primary medical doctor usually does chest x-rays on a annual basis and the last time she was there she indicates that she was told that they have been monitoring something in her chest x-ray that has not changed. She cannot be more specific about it. Patient states that the last time she was at her primary medical doctor's office 2 weeks ago she had a 22 pound weight loss as compared to the last time she was seen there. Patient denies any other symptoms other than the back pain and difficulty in movement. She denies any cough, congestion, shortness of breath, dyspnea, hemoptysis, abdominal pain, nausea, vomiting. 8-17 72-year-old female who is seen as a low back pain. Lung mass. Patient laying in bed. Stating that he still having significant pain in her back with difficulty with moving. Patient denies any bladder or fecal incontinence. Vital signs Are stable, patient remains afebrile. 01-07 Patient states no active shortness of breath at this time. No coughing. No other concerns at this time. Consents to bronchoscopy this Tuesday. 01-08 No active shortness of breath. Ready for procedure tomorrow. 01-09 HAD BRONCHOSCOPY TODAY WITH LUNG BIOPSY COMPLAINS OF BACK PAIN SEEN BY VASCULAR CAN HAVE FURTHER WORK UP OUTPATIENT WILL GET MRI OF THORACIC AND LUMBAR AREAS PAIN CONTROL AND TRY ROBAXIN AM LABS PAIN CONTROL 01-10 SEEN BY NEUROSURGERY AND ONCOLOGY RADIATION ONCOLOGY CONSULTED PAIN MEDS ADJUSTED BY ONCOLOGY AM LABS NEEDS MRI OF BRAIN TODAY STATES SHE IS MORE MOBILE TODAY WITH WALKER PAIN IS BETTER CONTROLLED AWAIT PATHOLOGY Physical Exam Vital signs: Vital Signs 01/09/18 12:25 01/09/18 12:45 01/09/18 13:05 Temperature 98.0 F Pulse Rate 119 H 119 H 117 H Respiratory Rate 22 22 20 Blood Pressure 176/88 H 121/58 L 109/55 L Pulse Oximetry 94 L 93 L 92 L 01/09/18 15:58 01/09/18 20:00 01/10/18 02:43 Temperature 98.5 F 97.7 F Pulse Rate 95 H 85 Respiratory Rate 18 19 19 Blood Pressure 159/95 H 150/74 H Pulse Oximetry 96 98 01/10/18 04:40 01/10/18 08:00 01/10/18 09:38 Temperature 97.8 F Pulse Rate 86 98 H 109 H Respiratory Rate 17 19 12 Blood Pressure 140/70 Pulse Oximetry 94 L 95 95 Intake & Output 01/09/18 01/10/18 01/10/18 18:59 06:59 18:59 Intake Total 200 / 200 663 / 663 Balance 200 / 200 663 / 663 Intake: IV 200 / 200 LR 1000 mL Inj 1,000 ML @ 30 100 / 100 mls/hr IV.SIG .Q24H JULIETH Rx#: [id number] Rocephin Inj 1,000 MG In NS Inj 100 / 100 100 ML @ 200 mls/hr IV.SIG Q24H JULIETH Rx#:[id number] Oral 663 / 663 Other: # Voids 2 2 Date of Last Bowel Movement 01/09/18 Narrative: 72-year-old white female presents to the emergency room with progressive lower back pain with workup findings on imaging that showed 1. 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 -Obtain records from Dr. Tobi Jeffries's office for evaluation and comparison -Tumor markers actually shown on elevation in CA-19-9, CEA, LDH. CA-15-3, CA 125, AFP were negative. -May need also CT-guided biopsy depending on results of bronchoscopy and biopsy HAD BRONCHOSCOPY TODAY 2. Back pain -CT scan does obviously show an etiology of her discomfort being facet arthropathy, bulging discs with moderate spinal cord stenosis -Patient will likely require further evaluation, management with either physical therapy, neurosurgical consultation for recommendations -We will start with Flexeril for muscle relaxation, hot pack administration. Anti-inflammatory for pain control -Physical therapy evaluation Appreciate neurosurgical recommendations which revealed further workup with MRI of the lumbar thoracic spine. WILL GET MRIS OF LUMBAR AND THORACIC PAIN CONTROL 3. 4.6 cm infrarenal aortic aneurysm -CTA indicating that it has favorable neck anatomy for endovascular repair -ER documentation indicates that there was discussion with cardiovascular surgery who indicated that the finding appear to be benign and not causing the patient discomfort. He does not foresee the patient having surgery secondary to the possible lung cancer diagnosis, but will follow up on the patient. -Patient will need strict blood pressure management FOLLOW UP OUTPATIENT 4. Azotemia, stable -Unknown whether patient has chronic versus acute renal abnormality -Maintain IV fluids -Monitor renal function 5. Hypertension, hyperlipidemia -Home medications are unknown at this time. Continue with lisinopril. -Vasotec/clonidine as needed 6. DVT prophylaxis -Sequential compression devices, avoid chemical prophylaxis secondary bronchoscopy and biopsy scheduled for tomorrow Discharge Planning: Home when cleared by pulmonary ELEVATED CA 19-9 WILL CONSULT ONCOLOGY SUSPECTED NON SMALL CELL LUNG CANCER WITH METS TO SPINE NEEDS CLEARANCE BY ALL - Urinary Catheter Management Indwelling Urethral Catheter Cath placed during this visit: no Results - Labs CBC & Chem 7: 01/10/18 08:29 01/06/18 05:30 Laboratory Results - last 24 hr 01/10/18 08:29 WBC 7.4 RBC 3.63 L Hgb 11.9 Hct 34.8 L MCV 96.0 MCH 32.9 MCHC 34.2 RDW 13.6 Plt Count 276 MPV 8.3 Neut % (Auto) 87.4 H Lymph % (Auto) 4.6 L Whiteside % (Auto) 7.9 Eos % (Auto) 0.0 Baso % (Auto) 0.1 Neut # (Auto) 6.4 Lymph # (Auto) 0.3 L Whiteside # (Auto) 0.6 Eos # (Auto) 0.0 Baso # (Auto) 0.0 WBC Differential . Differential Comment Auto diff final Microbiology 01/09/18 11:50 Bronchial Washings - Bronchial Fungal Smear - Final No fungal elements seen 01/09/18 11:50 Bronchial - Bronchial Gram Stain - Final - Imaging Impressions Lumbar Spine MRI 01/09/18 00:00 CONCLUSION: 1. 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 Thoracic Spine MRI 01/09/18 00:00 CONCLUSION: 1. Diffuse abnormal bone marrow signal with an appearance characteristic of metastatic disease. No pathologic fracture is identified. 2. No spinal canal stenosis or neural foraminal stenosis is present. 3. There is partial visualization of the previously documented mediastinal lymphadenopathy and there is likely increased atelectasis of the right lower lobe compared to the study from 4 days ago. Chest X-Ray 01/09/18 12:05 CONCLUSION: No pneumothorax is identified. - Procedures 01/09/2018 DATE OF PROCEDURE: 01/09/2018 PROCEDURE: Fiberoptic bronchoscopy with biopsy, brushings and washings. PREOPERATIVE DIAGNOSIS: Right lung masses. POSTOPERATIVE DIAGNOSIS: Right lung masses, rule out malignancy. ANESTHESIA: General with intubation. SURGEON: Maddie Bowden MD PROCEDURE AND FINDINGS: The patient was intubated under general anesthesia following which the Olympus IT 180 bronchoscope was used to visualize the bronchi. The scope was advanced through the endotracheal tube into the trachea. The trachea and janie appeared normal. The scope was then advanced into the right mainstem and right upper lobe segmental bronchi. The right upper lobe segmental bronchi demonstrated no endobronchial lesions. There were a few mucoid secretions, which were suctioned out. Next, the scope was advanced to the right middle lobe segmental bronchi. Right middle lobe segmental bronchi demonstrated some bloody secretions and there was narrowing of the lumen of the bronchus with mucosal ridging and edema. Next, the scope was advanced was the right lower lobe segmental bronchi. The right lower lobe segmental bronchi were occluded by over 50% with an irregular mucosal lesion which was friable and bled easily to touch. No discrete mass was identified, but biopsies were done from this area as well as brushings for cytology and washings were done for cytology and micro. There was mild bleeding observed, controlled with epinephrine solution. The scope was then advanced toward the left main stem bronchus. The left main stem bronchus, within 1 cm of the janie, had an irregular mucosal lesion which was also friable and biopsies were done from this area and saline washings were done. The scope was advanced towards the left upper lobe bronchus, but the left upper lobe bronchial opening was narrowed and the scope could not be advanced further. Saline washings were done and the procedure was then terminated. The patient tolerated the procedure well. Maddie Bowden MD Assessment and Plan - Assessment (1) Back pain Code(s): M54.9 - Dorsalgia, unspecified Status: Acute (2) Lung mass Code(s): R91.8 - Other nonspecific abnormal finding of lung field Status: Acute (3) Aneurysm Code(s): I72.9 - Aneurysm of unspecified site Status: Acute (4) Azotemia Code(s): R79.89 - Other specified abnormal findings of blood chemistry Status : Acute - Plan 72-year-old white female presents to the emergency room with progressive lower back pain with workup findings on imaging that showed 1. 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 -Obtain records from Dr. Tobi Jeffries's office for evaluation and comparison -Tumor markers actually shown on elevation in CA-19-9, CEA, LDH. CA-15-3, CA 125, AFP were negative. -May need also CT-guided biopsy depending on results of bronchoscopy and biopsy HAD BRONCHOSCOPY TODAY 2. Back pain -CT scan does obviously show an etiology of her discomfort being facet arthropathy, bulging discs with moderate spinal cord stenosis -Patient will likely require further evaluation, management with either physical therapy, neurosurgical consultation for recommendations -We will start with Flexeril for muscle relaxation, hot pack administration. Anti-inflammatory for pain control -Physical therapy evaluation Appreciate neurosurgical recommendations which revealed further workup with MRI of the lumbar thoracic spine. WILL GET MRIS OF LUMBAR AND THORACIC 3. 4.6 cm infrarenal aortic aneurysm -CTA indicating that it has favorable neck anatomy for endovascular repair -ER documentation indicates that there was discussion with cardiovascular surgery who indicated that the finding appear to be benign and not causing the patient discomfort. He does not foresee the patient having surgery secondary to the possible lung cancer diagnosis, but will follow up on the patient. -Patient will need strict blood pressure management FOLLOW UP OUTPATIENT 4. Azotemia, stable -Unknown whether patient has chronic versus acute renal abnormality -Maintain IV fluids -Monitor renal function 5. Hypertension, hyperlipidemia -Home medications are unknown at this time. Continue with lisinopril. -Vasotec/clonidine as needed 6. DVT prophylaxis -Sequential compression devices, avoid chemical prophylaxis secondary bronchoscopy and biopsy scheduled for tomorrow Discharge Planning: Home when cleared by pulmonary ELEVATED CA 19-9 WILL CONSULT ONCOLOGY Code Status: FULL CODE Discussed Condition With: RN AND PT AND CM Discharge Planning: NEEDS CLEARANCE BY ALL (1) Back pain Qualifiers: Back pain location: thoracic back pain Chronicity: acute Back pain laterality: bilateral Qualified Code(s): M54.6 - Pain in thoracic spine
[2018-01-10 10:48] LABS: Albumin 3.1 g/dL (3.4-5.0); Anion Gap 12 meq/L (5-15); Aspartate Aminotransferase 33 U/L (15-37); Blood Urea Nitrogen 36 mg/dL (7-18); Calcium 8.6 mg/dL (8.5-10.1); Carbon Dioxide 25.7 meq/L (21.0-32.0); Chloride 102 meq/L (98-107); Glomerular Filtration Rate 54 mL/min (>89); Glucose,Random 114 mg/dL (74-106); Potassium 3.8 meq/L (3.5-5.1); Sodium 140 meq/L (136-145)
[2018-01-10 10:59] LABS: Alanine Aminotransferase 23 U/L (10-53); Alkaline Phosphatase 60 U/L (45-117); Free T4 (Free Thyroxine) 1.28 ng/dL (0.76-1.46); Phosphorus 3.5 mg/dL (2.5-4.9); Thyroid Stimulating Hormone 0.413 uIU/mL (0.358-3.740); Total Protein 6.1 g/dL (6.4-8.2)
[2018-01-10] MEDS: Dextrose 5%/NaCl 0.45% Inj 1,000 ML IV.CONT SCH (12:03)
[2018-01-10] MEDS ORDERED: Gadobutrol PF 2 MMOL/2 ML Vial (for RAD) IV.SIG ONE (12:47)
--- NOTE | 2018-01-10 13:21 | MR ---
EXAM DATE: 01/10/2018 1:05 PM EDT AGE/SEX: 72 years / Female INDICATIONS: . Possible metastatic disease. CLINICAL DATA: This is the patient's subsequent encounter. Patient reports that signs and symptoms h ave been present for 4 - 6 days and indicates a pain score of 3/10. MEDICAL/SURGICAL HISTORY: Hypertension. Appendectomy. COMPARISON: No prior exams available for comparison. TECHNIQUE: Multiplanar, multisequence examination of the brain was performed without and with 6 ml Ga davist (gadobutrol) contrast as a single exam dose. FINDINGS: There is no evidence for intracranial hemorrhage, mass effect, mass lesions, edema, or extra-axial fl uid collections. There are no signs of acute infarction for technique. The diffusion portion, and p ostcontrast portion are unremarkable. Moderate degree of brain atrophy is seen. Moderate periventri cular white matter changes are seen nonspecific mostly consistent with chronic small vessel ischemic changes. CONCLUSION: Chronic small vessel ischemic and atrophic changes. Electronically signed by: Samir Luna MD 01/10/2018 1:20 PM EDT
[2018-01-10 16:13] LABS: Hemoglobin A1c 5.5 % (4.3-6.0)
--- NOTE | 2018-01-10 17:53 | P.PNNS ---
Subjective Interval history: Pt evaluated in conjunction with Dr. Dominguez. Pt has back pain but better today. No radiculopathy or paresthesias in extremities. Pt had MRI brain done today. <Dominik Macario - Last Filed: 01/10/18 17:49> Physical Exam Vital signs: Vital Signs 01/09/18 20:00 01/10/18 02:43 01/10/18 04:40 Temperature 97.7 F Pulse Rate 85 86 Respiratory Rate 19 19 17 Blood Pressure 150/74 H Pulse Oximetry 98 94 L 01/10/18 08:00 01/10/18 09:38 01/10/18 12:00 Temperature 97.8 F 98.4 F Pulse Rate 98 H 109 H 103 H Respiratory Rate 19 12 20 Blood Pressure 140/70 147/73 H Pulse Oximetry 95 95 90 L 01/10/18 15:55 01/10/18 16:00 Temperature 97.1 F L Pulse Rate 96 H 102 H Respiratory Rate 12 21 Blood Pressure 138/77 Pulse Oximetry 91 L Intake & Output 01/09/18 01/10/18 01/10/18 18:59 06:59 18:59 Intake Total 200 / 200 663 / 663 100 / 100 Balance 200 / 200 663 / 663 100 / 100 Intake: IV 200 / 200 100 / 100 LR 1000 mL Inj 1,000 ML @ 30 100 / 100 mls/hr IV.SIG .Q24H JULIETH Rx#: [id number] Rocephin Inj 1,000 MG In NS Inj 100 / 100 100 / 100 100 ML @ 200 mls/hr IV.SIG Q24H JULIETH Rx#:[id number] Oral 663 / 663 Other: # Voids 2 2 Date of Last Bowel Movement 01/09/18 - Constitutional no acute distress, average body habitus, cooperative - Routine HEENT Exam Head: Present: normocephalic, atraumatic Eye: Present: PERRL. Absent: conjunctival icterus ENT: Present: oropharynx clear - Routine Neck Exam Present: trachea midline - Routine Respiratory Exam Present: CTA bilaterally. Absent: respiratory distress, rhonchi, wheezes - Routine Cardiovascular Exam Present: RRR, S1, S2 - Routine Abdominal Exam Present: soft, normoactive bowel sounds. Absent: tenderness, distended - Routine Extremities Exam Absent: cyanosis - Routine Skin Exam Present: intact. Absent: cyanosis, erythema - Routine Neurological Exam Present: alert, oriented X3, moving all extremities, normal speech. Absent: sensory deficit, motor deficit - Detailed Neurological Exam: Coma Scale Eye Opening: Spontaneous Verbal Response: Oriented Motor Response: Obey commands Bruno Coma Scale Total: 15 - Routine Psychiatric Exam Present: normal affect, cooperative. Absent: anxious, agitated - Urinary Catheter Management Indwelling Urethral Catheter Cath placed during this visit: no <Dominik Macario - Last Filed: 01/10/18 17:49> Vital signs: Vital Signs 01/09/18 20:00 01/10/18 02:43 01/10/18 04:40 Temperature 97.7 F Pulse Rate 85 86 Respiratory Rate 19 19 17 Blood Pressure 150/74 H Pulse Oximetry 98 94 L 01/10/18 08:00 01/10/18 09:38 01/10/18 12:00 Temperature 97.8 F 98.4 F Pulse Rate 98 H 109 H 103 H Respiratory Rate 19 12 20 Blood Pressure 140/70 147/73 H Pulse Oximetry 95 95 90 L 01/10/18 15:55 01/10/18 16:00 Temperature 97.1 F L Pulse Rate 96 H 102 H Respiratory Rate 12 21 Blood Pressure 138/77 Pulse Oximetry 91 L Intake & Output 01/09/18 01/10/18 01/10/18 18:59 06:59 18:59 Intake Total 200 / 200 663 / 663 100 / 100 Balance 200 / 200 663 / 663 100 / 100 Intake: IV 200 / 200 100 / 100 LR 1000 mL Inj 1,000 ML @ 30 100 / 100 mls/hr IV.SIG .Q24H JULIETH Rx#: [id number] Rocephin Inj 1,000 MG In NS Inj 100 / 100 100 / 100 100 ML @ 200 mls/hr IV.SIG Q24H JULIETH Rx#:[id number] Oral 663 / 663 Other: # Voids 2 2 Date of Last Bowel Movement 01/09/18 - Urinary Catheter Management Indwelling Urethral Catheter Cath placed during this visit: no <Vaibhav Dominguez - Last Filed: 01/10/18 18:48> Assessment and Plan - Assessment (1) Back pain Code(s): M54.9 - Dorsalgia, unspecified Status: Acute Qualifiers: Back pain location: thoracic back pain Chronicity: acute Back pain laterality: bilateral Qualified Code(s): M54.6 - Pain in thoracic spine (2) Lung mass Code(s): R91.8 - Other nonspecific abnormal finding of lung field Status: Acute (3) Aneurysm Code(s): I72.9 - Aneurysm of unspecified site Status: Acute (4) Azotemia Code(s): R79.89 - Other specified abnormal findings of blood chemistry Status : Acute (5) Obstructive pneumonia Code(s): J18.9 - Pneumonia, unspecified organism Status: Acute (6) COPD (chronic obstructive pulmonary disease) Code(s): J44.9 - Chronic obstructive pulmonary disease, unspecified Status: Acute - Plan A/P: 72yo F admitted to hospitalist service for workup of new lung mass found on CT. MR imaging obtained due to patient with acute onset mechanical back pain. MRI thoracic/lumbar spine consistent with diffuse metastatic vertebral body lesions. Without any significant central or foraminal stenosis, requiring surgical intervention Diffuse metastatic disease -without surgical lesions on thoracic or lumbar MR MRI of the brain did not reveal any intracranial masses. Recommend palliative radiation to the spine for pain control. Discussed with pt who understands and agrees with treatment plan. <Dominik Macario - Last Filed: 01/10/18 17:49> - Attending Attestation The exam, history, and the medical decision-making described in the above note were completed with the assistance of the mid-level provider. I reviewed and agree with the findings presented. I attest that I had a [id number] encounter with the patient on the same day, and personally performed and documented my assessment and findings in the medical record. <Vaibhav Dominguez - Last Filed: 01/10/18 18:48>
--- NOTE | 2018-01-10 19:20 | P.PN ---
Subjective Interval history: She went for an MRI. Has less pain today. Neuro W/U being done Pathology on Bronch Biopsy is pending. On O2 3 L Physical Exam Vital signs: Vital Signs 01/09/18 20:00 01/10/18 02:43 01/10/18 04:40 Temperature 97.7 F Pulse Rate 85 86 Respiratory Rate 19 19 17 Blood Pressure 150/74 H Pulse Oximetry 98 94 L 01/10/18 08:00 01/10/18 09:38 01/10/18 12:00 Temperature 97.8 F 98.4 F Pulse Rate 98 H 109 H 103 H Respiratory Rate 19 12 20 Blood Pressure 140/70 147/73 H Pulse Oximetry 95 95 90 L 01/10/18 15:55 01/10/18 16:00 Temperature 97.1 F L Pulse Rate 96 H 102 H Respiratory Rate 12 21 Blood Pressure 138/77 Pulse Oximetry 91 L Intake & Output 01/10/18 01/10/18 01/11/18 06:59 18:59 06:59 Intake Total 663 / 663 100 / 100 Balance 663 / 663 100 / 100 Intake: IV 100 / 100 Rocephin Inj 1,000 MG In NS Inj 100 / 100 100 ML @ 200 mls/hr IV.SIG Q24H JULIETH Rx#:[id number] Oral 663 / 663 Other: # Voids 2 3 Date of Last Bowel Movement 01/09/18 01/10/18 # Bowel Movements 1 Narrative: GENERAL: Elderly W/F on O2 SKIN: Warm and dry.Alert and cooperative HEAD: Atraumatic. Normocephalic. EYES: Pupils equal and round. No scleral icterus. No injection or drainage. ENT: No nasal bleeding or discharge. Mucous membranes pink and moist. NECK: Trachea midline. No JVD. CARDIOVASCULAR: Regular rate and rhythm. RESPIRATORY: No accessory muscle use. Occ Wheezes over right chest. Breath sounds equal bilaterally. GASTROINTESTINAL: Abdomen soft, non-tender, nondistended. Hepatic and splenic margins not palpable. MUSCULOSKELETAL: Extremities without clubbing, cyanosis, or edema. No obvious deformities. NEUROLOGICAL: Awake and alert. No obvious cranial nerve deficits. Motor grossly within normal limits. Normal speech. PSYCHIATRIC: Appropriate mood and affect. - Urinary Catheter Management Indwelling Urethral Catheter Cath placed during this visit: no Results - Labs CBC & Chem 7: 01/10/18 08:29 01/10/18 08:29 Laboratory Results - last 24 hr 01/10/1818 01/10/18 08:29 08:29 08:29 WBC 7.4 RBC 3.63 L Hgb 11.9 Hct 34.8 L MCV 96.0 MCH 32.9 MCHC 34.2 RDW 13.6 Plt Count 276 MPV 8.3 Neut % (Auto) 87.4 H Lymph % (Auto) 4.6 L [place] % (Auto) 7.9 Eos % (Auto) 0.0 Baso % (Auto) 0.1 Neut # (Auto) 6.4 Lymph # (Auto) 0.3 L [place] # (Auto) 0.6 Eos # (Auto) 0.0 Baso # (Auto) 0.0 WBC Differential . Differential Comment Auto diff final Sodium 140 Potassium 3.8 Chloride 102 Carbon Dioxide 25.7 Anion Gap 12 BUN 36 H Creatinine 1.01 H Estimated GFR 54 L Random Glucose 114 H Hemoglobin A1c 5.5 Calcium 8.6 Phosphorus 3.5 Magnesium 2.0 Total Bilirubin 0.6 AST 33 ALT 23 Alkaline Phosphatase 60 Total Protein 6.1 L D Albumin 3.1 L TSH 0.413 Free T4 1.28 Microbiology 01/09/18 11:50 Bronchial Washings - Bronchial Acid Fast Bacilli Smear - Final No acid fast bacilli seen 01/09/18 11:50 Bronchial - Bronchial Gram Stain - Final 01/09/18 11:50 Bronchial - Bronchial Bronchial Culture - Preliminary No growth in 24 hours 01/09/18 11:50 Bronchial Washings - Bronchial Fungal Smear - Final No fungal elements seen - Imaging Impressions Head MRI 01/10/18 00:00 CONCLUSION: Chronic small vessel ischemic and atrophic changes. - Procedures 01/09/2018 DATE OF PROCEDURE: 01/09/2018 PROCEDURE: Fiberoptic bronchoscopy with biopsy, brushings and washings. PREOPERATIVE DIAGNOSIS: Right lung masses. POSTOPERATIVE DIAGNOSIS: Right lung masses, rule out malignancy. ANESTHESIA: General with intubation. SURGEON: Maddie Bowden MD PROCEDURE AND FINDINGS: The patient was intubated under general anesthesia following which the Olympus IT 180 bronchoscope was used to visualize the bronchi. The scope was advanced through the endotracheal tube into the trachea. The trachea and janie appeared normal. The scope was then advanced into the right mainstem and right upper lobe segmental bronchi. The right upper lobe segmental bronchi demonstrated no endobronchial lesions. There were a few mucoid secretions, which were suctioned out. Next, the scope was advanced to the right middle lobe segmental bronchi. Right middle lobe segmental bronchi demonstrated some bloody secretions and there was narrowing of the lumen of the bronchus with mucosal ridging and edema. Next, the scope was advanced was the right lower lobe segmental bronchi. The right lower lobe segmental bronchi were occluded by over 50% with an irregular mucosal lesion which was friable and bled easily to touch. No discrete mass was identified, but biopsies were done from this area as well as brushings for cytology and washings were done for cytology and micro. There was mild bleeding observed, controlled with epinephrine solution. The scope was then advanced toward the left main stem bronchus. The left main stem bronchus, within 1 cm of the janie, had an irregular mucosal lesion which was also friable and biopsies were done from this area and saline washings were done. The scope was advanced towards the left upper lobe bronchus, but the left upper lobe bronchial opening was narrowed and the scope could not be advanced further. Saline washings were done and the procedure was then terminated. The patient tolerated the procedure well. V. Ac Bowden MD Assessment and Plan - Assessment (1) Obstructive pneumonia Code(s): J18.9 - Pneumonia, unspecified organism Status: Acute (2) Back pain Code(s): M54.9 - Dorsalgia, unspecified Status: Acute (3) Lung mass Code(s): R91.8 - Other nonspecific abnormal finding of lung field Status: Acute (4) Aneurysm Code(s): I72.9 - Aneurysm of unspecified site Status: Acute (5) Azotemia Code(s): R79.89 - Other specified abnormal findings of blood chemistry Status : Acute (6) COPD (chronic obstructive pulmonary disease) Code(s): J44.9 - Chronic obstructive pulmonary disease, unspecified Status: Acute - Plan 1. Will continue nebs qid , duoneb 2. D/C solumedrol 40 mg BID 3. O2 2 L PRN 4. Continue antibiotic. and switch to PO 5. Oncology evaluation for non small cell lung malignancy 6. CBC, CXR (2) Back pain Qualifiers: Back pain location: thoracic back pain Chronicity: acute Back pain laterality: bilateral Qualified Code(s): M54.6 - Pain in thoracic spine
[2018-01-10] MEDS: Temazepam 15 MG Capsule PO PRN (22:23)
[2018-01-11] MEDS: Levothyroxine 88 MCG Tablet PO SCH (05:51)
[2018-01-11] MEDS: Methocarbamol 500 MG Tablet PO SCH ×3 (05:51→23:00)
[2018-01-11] MEDS: Ibuprofen 400 MG Tablet PO SCH ×3 (05:51→23:00)
[2018-01-11] MEDS: Morphine Sulfate 15 MG SR Tablet PO SCH ×2 (09:59→20:33)
[2018-01-11] MEDS: Lisinopril 10 MG Tablet PO SCH (10:00)
[2018-01-11] MEDS: Senna/Docusate Sodium 8.6/50 MG Tablet PO SCH ×2 (10:00→20:36)
--- NOTE | 2018-01-11 10:58 | P.PNIM ---
Subjective Interval history: 72-year-old female with known history of hypertension, hyperlipidemia , history of tobacco use, hypothyroidism who presented to the hospital because of back pain. Patient states that she started having lower back pain approximately 3 weeks ago where progressively got worse to where it was very difficult and painful for her to go from a sitting or laying position to a standing position she went to her prior medical doctor's office 2 weeks ago to get her back evaluated. At that time she indicates that her primary medical doctor prescribed her an antidepressant. Her back pain never improved so she came to the emergency department for evaluation. Patient had workup done and found multiple medical problems in reference to her back pain. Patient has CT scan done which did indicate a disc bulge at L4-L5 with moderate central canal stenosis. Patient denied any neurological symptoms to include weakness, ambulation difficulty, paresthesia, paralysis, loss of bowel or bladder control. The CT also showed abdominal aortic aneurysm measuring 4.8 cm. Because of that reason. A thoracic CTA was performed which did indicate a 4.6 infrarenal aortic aneurysm with favorable neck anatomy for endovascular repair. The ER physician cashier assistant did contact cardiovascular surgery Dr. Abel, who indicated that the finding appears to be benign and not the cause of the patient's discomfort. He did not proceed the patient having surgery secondary to the possible lung cancer diagnosis is indicated that he would continue to follow up on the patient. However, because of that CT of the thorax patient was found to have multiple lung masses seen measuring 3.4 x 2.4 central right lung mass, 4.5 x 2.6 central mass in the superior segment of the right lower lobe associated with subsegmental bronchial occlusion. There was also bulky mediastinal adenopathy. Findings were concerning for primary lung neoplasm and mediastinum metastasis. Patient indicates that her primary medical doctor usually does chest x-rays on a annual basis and the last time she was there she indicates that she was told that they have been monitoring something in her chest x-ray that has not changed. She cannot be more specific about it. Patient states that the last time she was at her primary medical doctor's office 2 weeks ago she had a 22 pound weight loss as compared to the last time she was seen there. Patient denies any other symptoms other than the back pain and difficulty in movement. She denies any cough, congestion, shortness of breath, dyspnea, hemoptysis, abdominal pain, nausea, vomiting. 8-17 72-year-old female who is seen as a low back pain. Lung mass. Patient laying in bed. Stating that he still having significant pain in her back with difficulty with moving. Patient denies any bladder or fecal incontinence. Vital signs Are stable, patient remains afebrile. 01-07 Patient states no active shortness of breath at this time. No coughing. No other concerns at this time. Consents to bronchoscopy this Tuesday. 01-08 No active shortness of breath. Ready for procedure tomorrow. 01-09 HAD BRONCHOSCOPY TODAY WITH LUNG BIOPSY COMPLAINS OF BACK PAIN SEEN BY VASCULAR CAN HAVE FURTHER WORK UP OUTPATIENT WILL GET MRI OF THORACIC AND LUMBAR AREAS PAIN CONTROL AND TRY ROBAXIN AM LABS PAIN CONTROL 01-10 SEEN BY NEUROSURGERY AND ONCOLOGY RADIATION ONCOLOGY CONSULTED PAIN MEDS ADJUSTED BY ONCOLOGY AM LABS NEEDS MRI OF BRAIN TODAY STATES SHE IS MORE MOBILE TODAY WITH WALKER PAIN IS BETTER CONTROLLED AWAIT PATHOLOGY 01-11 FOLLOW UP LUNG MASSES WITH METS STEROIDS BEING STOPPED BY PULM STATES PAIN IS BETTER BUT IS ON PAIN MEDS INCREASE ACTIVITY MRI OF BRAIN NO METS HOPEFULLY HOME TOMORROW?? IF PATH IS BACK Physical Exam Vital signs: Vital Signs 01/10/18 12:00 01/10/18 15:55 01/10/18 16:00 Temperature 98.4 F 97.1 F L Pulse Rate 103 H 96 H 102 H Respiratory Rate 20 12 21 Blood Pressure 147/73 H 138/77 Pulse Oximetry 90 L 91 L 01/10/18 21:45 01/11/18 00:30 01/11/18 04:45 Temperature 97.9 F 99 F 98 F Pulse Rate 100 H 94 H 98 H Respiratory Rate 17 16 16 Blood Pressure 140/84 135/72 130/75 Pulse Oximetry 93 L 91 L 94 L 01/11/18 08:00 Temperature 99.6 F Pulse Rate 105 H Respiratory Rate 18 Blood Pressure 129/73 Pulse Oximetry 93 L Intake & Output 01/10/18 01/11/18 01/11/18 18:59 06:59 18:59 Intake Total 100 / 100 1250 / 1250 Output Total 600 / 600 Balance 100 / 100 650 / 650 Weight 62.3 kg Intake: IV 100 / 100 Rocephin Inj 1,000 MG In NS Inj 100 / 100 100 ML @ 200 mls/hr IV.SIG Q24H JULIETH Rx#:[id number] Oral 1250 / 1250 Output: Urine 600 / 600 Other: # Voids 3 2 Date of Last Bowel Movement 01/10/18 01/10/18 # Bowel Movements 1 0 Narrative: GENERAL: Elderly W/F on O2 SKIN: Warm and dry.Alert and cooperative HEAD: Atraumatic. Normocephalic. EYES: Pupils equal and round. No scleral icterus. No injection or drainage. ENT: No nasal bleeding or discharge. Mucous membranes pink and moist. NECK: Trachea midline. No JVD. CARDIOVASCULAR: Regular rate and rhythm. RESPIRATORY: No accessory muscle use. Occ Wheezes over right chest. Breath sounds equal bilaterally. GASTROINTESTINAL: Abdomen soft, non-tender, nondistended. Hepatic and splenic margins not palpable. MUSCULOSKELETAL: Extremities without clubbing, cyanosis, or edema. No obvious deformities. NEUROLOGICAL: Awake and alert. No obvious cranial nerve deficits. Motor grossly within normal limits. Normal speech. PSYCHIATRIC: Appropriate mood and affect. - Urinary Catheter Management Indwelling Urethral Catheter Cath placed during this visit: no Results - Labs CBC & Chem 7: 01/10/18 08:29 01/10/18 08:29 Laboratory Results - last 24 hr 01/10/18 01/10/18 08:29 08:29 Hemoglobin A1c 5.5 Phosphorus 3.5 Total Bilirubin 0.6 ALT 23 Alkaline Phosphatase 60 Total Protein 6.1 L D TSH 0.413 Free T4 1.28 Microbiology 01/09/18 11:50 Bronchial - Bronchial Gram Stain - Final 01/09/18 11:50 Bronchial - Bronchial Bronchial Culture - Final No growth in 48 hours 01/09/18 11:50 Bronchial Washings - Bronchial Acid Fast Bacilli Smear - Final No acid fast bacilli seen 01/09/18 11:50 Bronchial Washings - Bronchial Fungal Smear - Final No fungal elements seen - Imaging Impressions Head MRI 01/10/18 00:00 CONCLUSION: Chronic small vessel ischemic and atrophic changes. - Procedures 01/09/2018 DATE OF PROCEDURE: 01/09/2018 PROCEDURE: Fiberoptic bronchoscopy with biopsy, brushings and washings. PREOPERATIVE DIAGNOSIS: Right lung masses. POSTOPERATIVE DIAGNOSIS: Right lung masses, rule out malignancy. ANESTHESIA: General with intubation. SURGEON: Maddie Bowden MD PROCEDURE AND FINDINGS: The patient was intubated under general anesthesia following which the Olympus IT 180 bronchoscope was used to visualize the bronchi. The scope was advanced through the endotracheal tube into the trachea. The trachea and janie appeared normal. The scope was then advanced into the right mainstem and right upper lobe segmental bronchi. The right upper lobe segmental bronchi demonstrated no endobronchial lesions. There were a few mucoid secretions, which were suctioned out. Next, the scope was advanced to the right middle lobe segmental bronchi. Right middle lobe segmental bronchi demonstrated some bloody secretions and there was narrowing of the lumen of the bronchus with mucosal ridging and edema. Next, the scope was advanced was the right lower lobe segmental bronchi. The right lower lobe segmental bronchi were occluded by over 50% with an irregular mucosal lesion which was friable and bled easily to touch. No discrete mass was identified, but biopsies were done from this area as well as brushings for cytology and washings were done for cytology and micro. There was mild bleeding observed, controlled with epinephrine solution. The scope was then advanced toward the left main stem bronchus. The left main stem bronchus, within 1 cm of the janie, had an irregular mucosal lesion which was also friable and biopsies were done from this area and saline washings were done. The scope was advanced towards the left upper lobe bronchus, but the left upper lobe bronchial opening was narrowed and the scope could not be advanced further. Saline washings were done and the procedure was then terminated. The patient tolerated the procedure well. Maddie Bowden MD Assessment and Plan - Assessment (1) Back pain Code(s): M54.9 - Dorsalgia, unspecified Status: Acute (2) Lung mass Code(s): R91.8 - Other nonspecific abnormal finding of lung field Status: Acute (3) Aneurysm Code(s): I72.9 - Aneurysm of unspecified site Status: Acute (4) Azotemia Code(s): R79.89 - Other specified abnormal findings of blood chemistry Status : Acute - Plan 72-year-old white female presents to the emergency room with progressive lower back pain with workup findings on imaging that showed 1. 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 -Obtain records from Dr. Tobi Jeffries's office for evaluation and comparison -Tumor markers actually shown on elevation in CA-19-9, CEA, LDH. CA-15-3, CA 125, AFP were negative. -May need also CT-guided biopsy depending on results of bronchoscopy and biopsy HAD BRONCHOSCOPY 8-20 2. Back pain -CT scan does obviously show an etiology of her discomfort being facet arthropathy, bulging discs with moderate spinal cord stenosis -Patient will likely require further evaluation, management with either physical therapy, neurosurgical consultation for recommendations -We will start with Flexeril for muscle relaxation, hot pack administration. Anti-inflammatory for pain control -Physical therapy evaluation Appreciate neurosurgical recommendations which revealed further workup with MRI of the lumbar thoracic spine. WILL GET MRIS OF LUMBAR AND THORACIC- HAD MRI OF BRAIN THIS IS NEGATIVE 3. 4.6 cm infrarenal aortic aneurysm -CTA indicating that it has favorable neck anatomy for endovascular repair -ER documentation indicates that there was discussion with cardiovascular surgery who indicated that the finding appear to be benign and not causing the patient discomfort. He does not foresee the patient having surgery secondary to the possible lung cancer diagnosis, but will follow up on the patient. -Patient will need strict blood pressure management FOLLOW UP OUTPATIENT 4. Azotemia, stable -Unknown whether patient has chronic versus acute renal abnormality -Maintain IV fluids -Monitor renal function 5. Hypertension, hyperlipidemia -Home medications are unknown at this time. Continue with lisinopril. -Vasotec/clonidine as needed 6. DVT prophylaxis -Sequential compression devices, avoid chemical prophylaxis secondary bronchoscopy and biopsy scheduled for tomorrow Discharge Planning: Home when cleared by pulmonary ELEVATED CA 19-9 WILL CONSULT ONCOLOGY PAIN CONTROL WILL NEED PAIN MEDS AT DISCHARGE BEING WEANED OFF STEROIDS WILL SEE HOW PAIN IS CONTROLLED ONCE OFF THEM Code Status: FULL CODE Discussed Condition With: RN AND PT AND CM Discharge Planning: NEEDS CLEARANCE BY ALL (1) Back pain Qualifiers: Back pain location: thoracic back pain Chronicity: acute Back pain laterality: bilateral Qualified Code(s): M54.6 - Pain in thoracic spine
[2018-01-11] MEDS: Dextrose 5%/NaCl 0.45% Inj 1,000 ML IV.CONT SCH (13:29)
--- NOTE | 2018-01-11 18:47 | P.PN ---
Subjective Interval history: Sitting up and is feeling better. Less back pain. Off O2 now. Neuro W/U in progress. Path reports pending Physical Exam Vital signs: Vital Signs 01/10/18 21:45 01/11/18 00:30 01/11/18 04:45 Temperature 97.9 F 99 F 98 F Pulse Rate 100 H 94 H 98 H Respiratory Rate 17 16 16 Blood Pressure 140/84 135/72 130/75 Pulse Oximetry 93 L 91 L 94 L Pulse Oximetry [Exertion on Room Air] Pulse Oximetry [Resting on Room Air] Pulse Oximetry [Resting with Oxygen] 01/11/18 08:00 01/11/18 12:00 01/11/18 16:30 Temperature 99.6 F 98.1 F Pulse Rate 105 H 95 H Respiratory Rate 18 18 Blood Pressure 129/73 151/81 H Pulse Oximetry 93 L 93 L Pulse Oximetry [Exertion on Room Air] 90 L Pulse Oximetry [Resting on Room Air] 92 L Pulse Oximetry [Resting with Oxygen] 95 01/11/18 18:07 Temperature Pulse Rate Respiratory Rate Blood Pressure Pulse Oximetry 95 Pulse Oximetry [Exertion on Room Air] Pulse Oximetry [Resting on Room Air] Pulse Oximetry [Resting with Oxygen] Intake & Output 01/10/18 01/11/18 01/11/18 18:59 06:59 18:59 Intake Total 100 / 100 1250 / 1250 Output Total 600 / 600 Balance 100 / 100 650 / 650 Weight 62.3 kg Intake: IV 100 / 100 Rocephin Inj 1,000 MG In NS Inj 100 / 100 100 ML @ 200 mls/hr IV.SIG Q24H JULIETH Rx#:[id number] Oral 1250 / 1250 Output: Urine 600 / 600 Other: # Voids 3 2 Date of Last Bowel Movement 01/10/18 01/10/18 01/10/18 # Bowel Movements 1 0 Narrative: GENERAL: Elderly W/F in no distress SKIN: Warm and dry.Alert and cooperative HEAD: Atraumatic. Normocephalic. EYES: Pupils equal and round. No scleral icterus. No injection or drainage. ENT: No nasal bleeding or discharge. Mucous membranes pink and moist. NECK: Trachea midline. No JVD. No Enlarged Nodes. CARDIOVASCULAR: Regular rate and rhythm. RESPIRATORY: No accessory muscle use. Occ Wheezes over right chest. Breath sounds equal bilaterally. GASTROINTESTINAL: Abdomen soft, non-tender, nondistended. Hepatic and splenic margins not palpable. MUSCULOSKELETAL: Extremities without clubbing, cyanosis, or edema. No obvious deformities. NEUROLOGICAL: Awake and alert. No obvious cranial nerve deficits. Motor grossly within normal limits. Normal speech. PSYCHIATRIC: Appropriate mood and affect. - Urinary Catheter Management Indwelling Urethral Catheter Cath placed during this visit: no Results - Labs CBC & Chem 7: 01/10/18 08:29 01/10/18 08:29 Microbiology 01/09/18 11:50 Bronchial - Bronchial Gram Stain - Final 01/09/18 11:50 Bronchial - Bronchial Bronchial Culture - Final No growth in 48 hours 01/09/18 11:50 Bronchial Washings - Bronchial Acid Fast Bacilli Smear - Final No acid fast bacilli seen - Procedures 01/09/2018 DATE OF PROCEDURE: 01/09/2018 PROCEDURE: Fiberoptic bronchoscopy with biopsy, brushings and washings. PREOPERATIVE DIAGNOSIS: Right lung masses. POSTOPERATIVE DIAGNOSIS: Right lung masses, rule out malignancy. ANESTHESIA: General with intubation. SURGEON: Maddie Bowden MD PROCEDURE AND FINDINGS: The patient was intubated under general anesthesia following which the Olympus IT 180 bronchoscope was used to visualize the bronchi. The scope was advanced through the endotracheal tube into the trachea. The trachea and janie appeared normal. The scope was then advanced into the right mainstem and right upper lobe segmental bronchi. The right upper lobe segmental bronchi demonstrated no endobronchial lesions. There were a few mucoid secretions, which were suctioned out. Next, the scope was advanced to the right middle lobe segmental bronchi. Right middle lobe segmental bronchi demonstrated some bloody secretions and there was narrowing of the lumen of the bronchus with mucosal ridging and edema. Next, the scope was advanced was the right lower lobe segmental bronchi. The right lower lobe segmental bronchi were occluded by over 50% with an irregular mucosal lesion which was friable and bled easily to touch. No discrete mass was identified, but biopsies were done from this area as well as brushings for cytology and washings were done for cytology and micro. There was mild bleeding observed, controlled with epinephrine solution. The scope was then advanced toward the left main stem bronchus. The left main stem bronchus, within 1 cm of the janie, had an irregular mucosal lesion which was also friable and biopsies were done from this area and saline washings were done. The scope was advanced towards the left upper lobe bronchus, but the left upper lobe bronchial opening was narrowed and the scope could not be advanced further. Saline washings were done and the procedure was then terminated. The patient tolerated the procedure well. V. Ac Bowden MD Assessment and Plan - Assessment (1) Obstructive pneumonia Code(s): J18.9 - Pneumonia, unspecified organism Status: Acute (2) Back pain Code(s): M54.9 - Dorsalgia, unspecified Status: Acute (3) Lung mass Code(s): R91.8 - Other nonspecific abnormal finding of lung field Status: Acute (4) Aneurysm Code(s): I72.9 - Aneurysm of unspecified site Status: Acute (5) Azotemia Code(s): R79.89 - Other specified abnormal findings of blood chemistry Status : Acute (6) COPD (chronic obstructive pulmonary disease) Code(s): J44.9 - Chronic obstructive pulmonary disease, unspecified Status: Acute - Plan 1. Will continue nebs TID , duoneb 2. IS Q2H. 3. O2 2 L PRN 4. Continue Ceftin 5. Oncology evaluation for non small cell lung malignancy 6. PET CT as OP. (2) Back pain Qualifiers: Back pain location: thoracic back pain Chronicity: acute Back pain laterality: bilateral Qualified Code(s): M54.6 - Pain in thoracic spine
[2018-01-11] MEDS: oxyCODONE/Acetaminophen 10/325 Tablet PO PRN (20:35)
[2018-01-12] MEDS: Ibuprofen 400 MG Tablet PO SCH ×3 (06:50→22:49)
[2018-01-12] MEDS: Methocarbamol 500 MG Tablet PO SCH ×3 (06:50→22:50)
[2018-01-12] MEDS: Levothyroxine 88 MCG Tablet PO SCH (06:50)
[2018-01-12] MEDS: Lisinopril 10 MG Tablet PO SCH (09:29)
[2018-01-12] MEDS: Senna/Docusate Sodium 8.6/50 MG Tablet PO SCH ×2 (09:30→22:49)
[2018-01-12] MEDS: Morphine Sulfate 15 MG SR Tablet PO SCH ×2 (09:30→22:49)
--- NOTE | 2018-01-12 11:45 | P.PNIM ---
Subjective Interval history: 72-year-old female with known history of hypertension, hyperlipidemia , history of tobacco use, hypothyroidism who presented to the hospital because of back pain. Patient states that she started having lower back pain approximately 3 weeks ago where progressively got worse to where it was very difficult and painful for her to go from a sitting or laying position to a standing position she went to her prior medical doctor's office 2 weeks ago to get her back evaluated. At that time she indicates that her primary medical doctor prescribed her an antidepressant. Her back pain never improved so she came to the emergency department for evaluation. Patient had workup done and found multiple medical problems in reference to her back pain. Patient has CT scan done which did indicate a disc bulge at L4-L5 with moderate central canal stenosis. Patient denied any neurological symptoms to include weakness, ambulation difficulty, paresthesia, paralysis, loss of bowel or bladder control. The CT also showed abdominal aortic aneurysm measuring 4.8 cm. Because of that reason. A thoracic CTA was performed which did indicate a 4.6 infrarenal aortic aneurysm with favorable neck anatomy for endovascular repair. The ER physician program support assistant did contact cardiovascular surgery Dr. Abel, who indicated that the finding appears to be benign and not the cause of the patient's discomfort. He did not proceed the patient having surgery secondary to the possible lung cancer diagnosis is indicated that he would continue to follow up on the patient. However, because of that CT of the thorax patient was found to have multiple lung masses seen measuring 3.4 x 2.4 central right lung mass, 4.5 x 2.6 central mass in the superior segment of the right lower lobe associated with subsegmental bronchial occlusion. There was also bulky mediastinal adenopathy. Findings were concerning for primary lung neoplasm and mediastinum metastasis. Patient indicates that her primary medical doctor usually does chest x-rays on a annual basis and the last time she was there she indicates that she was told that they have been monitoring something in her chest x-ray that has not changed. She cannot be more specific about it. Patient states that the last time she was at her primary medical doctor's office 2 weeks ago she had a 22 pound weight loss as compared to the last time she was seen there. Patient denies any other symptoms other than the back pain and difficulty in movement. She denies any cough, congestion, shortness of breath, dyspnea, hemoptysis, abdominal pain, nausea, vomiting. 8-17 72-year-old female who is seen as a low back pain. Lung mass. Patient laying in bed. Stating that he still having significant pain in her back with difficulty with moving. Patient denies any bladder or fecal incontinence. Vital signs Are stable, patient remains afebrile. 01-07 Patient states no active shortness of breath at this time. No coughing. No other concerns at this time. Consents to bronchoscopy this Tuesday. 01-08 No active shortness of breath. Ready for procedure tomorrow. 01-09 HAD BRONCHOSCOPY TODAY WITH LUNG BIOPSY COMPLAINS OF BACK PAIN SEEN BY VASCULAR CAN HAVE FURTHER WORK UP OUTPATIENT WILL GET MRI OF THORACIC AND LUMBAR AREAS PAIN CONTROL AND TRY ROBAXIN AM LABS PAIN CONTROL 01-10 SEEN BY NEUROSURGERY AND ONCOLOGY RADIATION ONCOLOGY CONSULTED PAIN MEDS ADJUSTED BY ONCOLOGY AM LABS NEEDS MRI OF BRAIN TODAY STATES SHE IS MORE MOBILE TODAY WITH WALKER PAIN IS BETTER CONTROLLED AWAIT PATHOLOGY 01-11 FOLLOW UP LUNG MASSES WITH METS STEROIDS BEING STOPPED BY PULM STATES PAIN IS BETTER BUT IS ON PAIN MEDS INCREASE ACTIVITY MRI OF BRAIN NO METS HOPEFULLY HOME TOMORROW?? IF PATH IS BACK 01-12 AWAIT PATHOLOGY WANTS TO GO HOME STILL ON OXYGEN DID NOT FAIL WALK TEST ENOUGH TO GET OXYGEN BUT IS STILL ON OXYGEN HERE NEEDS TO BE WEANED OFF OXYGEN PRIOR TO DISCHARGE WILL NEED ANTIBIOTICS AND STEROIDS AND OUTPATIENT PET SCAN AT DISCHARGE Physical Exam Vital signs: Vital Signs 01/11/18 12:00 01/11/18 16:00 01/11/18 16:30 Temperature 98.1 F 98.3 F Pulse Rate 95 H 78 Respiratory Rate 18 18 Blood Pressure 151/81 H 152/86 H Pulse Oximetry 93 L 94 L Pulse Oximetry [Exertion on Room Air] 90 L Pulse Oximetry [Resting on Room Air] 92 L Pulse Oximetry [Resting with Oxygen] 95 01/11/18 18:07 01/11/18 20:00 01/12/18 00:00 Temperature 98.1 F 97.6 F Pulse Rate 84 81 Respiratory Rate 20 18 Blood Pressure 153/76 H 153/87 H Pulse Oximetry 95 93 L 95 Pulse Oximetry [Exertion on Room Air] Pulse Oximetry [Resting on Room Air] Pulse Oximetry [Resting with Oxygen] 01/12/18 04:00 01/12/18 08:00 Temperature 97.8 F 97.2 F L Pulse Rate 78 97 H Respiratory Rate Blood Pressure 167/88 H 155/80 H Pulse Oximetry 94 L 93 L Pulse Oximetry [Exertion on Room Air] Pulse Oximetry [Resting on Room Air] Pulse Oximetry [Resting with Oxygen] Intake & Output 01/11/18 01/12/18 01/12/18 18:59 06:59 18:59 Intake Total 720 / 720 Balance 720 / 720 Weight 61.4 kg Intake: Oral 720 / 720 Other: # Voids 5 2 Date of Last Bowel Movement 01/10/18 01/11/18 Narrative: GENERAL: Elderly W/F in no distress SKIN: Warm and dry.Alert and cooperative HEAD: Atraumatic. Normocephalic. EYES: Pupils equal and round. No scleral icterus. No injection or drainage. ENT: No nasal bleeding or discharge. Mucous membranes pink and moist. NECK: Trachea midline. No JVD. No Enlarged Nodes. CARDIOVASCULAR: Regular rate and rhythm. RESPIRATORY: No accessory muscle use. Occ Wheezes over right chest. Breath sounds equal bilaterally. GASTROINTESTINAL: Abdomen soft, non-tender, nondistended. Hepatic and splenic margins not palpable. MUSCULOSKELETAL: Extremities without clubbing, cyanosis, or edema. No obvious deformities. NEUROLOGICAL: Awake and alert. No obvious cranial nerve deficits. Motor grossly within normal limits. Normal speech. PSYCHIATRIC: Appropriate mood and affect. - Urinary Catheter Management Indwelling Urethral Catheter Cath placed during this visit: no Results - Labs CBC & Chem 7: 01/10/18 08:29 01/10/18 08:29 Microbiology 01/09/18 11:50 Bronchial - Bronchial Gram Stain - Final 01/09/18 11:50 Bronchial - Bronchial Bronchial Culture - Final No growth in 48 hours - Imaging Hip X-Ray 01/05/18 11:23 CONCLUSION: No evidence of recent bony injury. Lumbar Spine CT 01/05/18 11:23 CONCLUSION: 1. Abdominal aortic aneurysm measuring up to 4.8 cm transverse diameter. Bilateral presumed renal cysts. Findings better evaluated on CT abdomen and pelvis with contrast. 2. At L4-5 there is a mild broad-based disc protrusion and facet arthropathy with moderate central canal stenosis. 3. At L2-3, L3-4 and L5-S1 there is mild lateral recess and foraminal encroachment bilaterally. Thoracic Aorta CT 01/05/18 12:52 CONCLUSION: 1. 3.4 x 2.4 cm central right lung mass with adjacent 4.5 x 2.6 cm central mass in the superior segment of the right lower lobe and associated segmental bronchial occlusion. There is also associated bulky mediastinal adenopathy. 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 No definitive evidence for distal or contralateral metastatic disease. 2. 1 cm soft tissue density mass in the superior anterior right chest wall of uncertain clinical significance. This can be further evaluated if staging PET/ CT examination is performed. 3. 4.6 cm infrarenal aortic aneurysm with favorable neck anatomy for endovascular repair. 4. No aortic dissection. Lumbar Spine MRI 01/09/18 00:00 CONCLUSION: 1. 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 Thoracic Spine MRI 01/09/18 00:00 CONCLUSION: 1. Diffuse abnormal bone marrow signal with an appearance characteristic of metastatic disease. No pathologic fracture is identified. 2. No spinal canal stenosis or neural foraminal stenosis is present. 3. There is partial visualization of the previously documented mediastinal lymphadenopathy and there is likely increased atelectasis of the right lower lobe compared to the study from 4 days ago. Chest X-Ray 01/09/18 12:05 CONCLUSION: No pneumothorax is identified. Head MRI 01/10/18 00:00 CONCLUSION: Chronic small vessel ischemic and atrophic changes. - Procedures 01/09/2018 DATE OF PROCEDURE: 01/09/2018 PROCEDURE: Fiberoptic bronchoscopy with biopsy, brushings and washings. PREOPERATIVE DIAGNOSIS: Right lung masses. POSTOPERATIVE DIAGNOSIS: Right lung masses, rule out malignancy. ANESTHESIA: General with intubation. SURGEON: Maddie Bowden MD PROCEDURE AND FINDINGS: The patient was intubated under general anesthesia following which the Olympus IT 180 bronchoscope was used to visualize the bronchi. The scope was advanced through the endotracheal tube into the trachea. The trachea and janie appeared normal. The scope was then advanced into the right mainstem and right upper lobe segmental bronchi. The right upper lobe segmental bronchi demonstrated no endobronchial lesions. There were a few mucoid secretions, which were suctioned out. Next, the scope was advanced to the right middle lobe segmental bronchi. Right middle lobe segmental bronchi demonstrated some bloody secretions and there was narrowing of the lumen of the bronchus with mucosal ridging and edema. Next, the scope was advanced was the right lower lobe segmental bronchi. The right lower lobe segmental bronchi were occluded by over 50% with an irregular mucosal lesion which was friable and bled easily to touch. No discrete mass was identified, but biopsies were done from this area as well as brushings for cytology and washings were done for cytology and micro. There was mild bleeding observed, controlled with epinephrine solution. The scope was then advanced toward the left main stem bronchus. The left main stem bronchus, within 1 cm of the janie, had an irregular mucosal lesion which was also friable and biopsies were done from this area and saline washings were done. The scope was advanced towards the left upper lobe bronchus, but the left upper lobe bronchial opening was narrowed and the scope could not be advanced further. Saline washings were done and the procedure was then terminated. The patient tolerated the procedure well. V. Ac Bowden MD Assessment and Plan - Assessment (1) Back pain Code(s): M54.9 - Dorsalgia, unspecified Status: Acute (2) Lung mass Code(s): R91.8 - Other nonspecific abnormal finding of lung field Status: Acute (3) Aneurysm Code(s): I72.9 - Aneurysm of unspecified site Status: Acute (4) Azotemia Code(s): R79.89 - Other specified abnormal findings of blood chemistry Status : Acute - Plan 72-year-old white female presents to the emergency room with progressive lower back pain with workup findings on imaging that showed 1. 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 -Obtain records from Dr. Tobi Jeffries's office for evaluation and comparison -Tumor markers actually shown on elevation in CA-19-9, CEA, LDH. CA-15-3, CA 125, AFP were negative. -May need also CT-guided biopsy depending on results of bronchoscopy and biopsy HAD BRONCHOSCOPY 8- 2. Back pain -CT scan does obviously show an etiology of her discomfort being facet arthropathy, bulging discs with moderate spinal cord stenosis -Patient will likely require further evaluation, management with either physical therapy, neurosurgical consultation for recommendations -We will start with Flexeril for muscle relaxation, hot pack administration. Anti-inflammatory for pain control -Physical therapy evaluation Appreciate neurosurgical recommendations which revealed further workup with MRI of the lumbar thoracic spine. WILL GET MRIS OF LUMBAR AND THORACIC- REVIEWED HAD MRI OF BRAIN THIS IS NEGATIVE 3. 4.6 cm infrarenal aortic aneurysm -CTA indicating that it has favorable neck anatomy for endovascular repair -ER documentation indicates that there was discussion with cardiovascular surgery who indicated that the finding appear to be benign and not causing the patient discomfort. He does not foresee the patient having surgery secondary to the possible lung cancer diagnosis, but will follow up on the patient. -Patient will need strict blood pressure management FOLLOW UP OUTPATIENT 4. Azotemia, stable -Unknown whether patient has chronic versus acute renal abnormality -Maintain IV fluids -Monitor renal function 5. Hypertension, hyperlipidemia -Home medications are unknown at this time. Continue with lisinopril. -Vasotec/clonidine as needed 6. DVT prophylaxis -Sequential compression devices, avoid chemical prophylaxis secondary bronchoscopy and biopsy scheduled for tomorrow Discharge Planning: Home when cleared by pulmonary AND OFF OXYGEN TRY TO WEAN OFF OXYGEN SO CAN GO HOME TOMORROW ELEVATED CA 19-9 WILL CONSULT ONCOLOGY PAIN CONTROL WILL NEED PAIN MEDS AT DISCHARGE BEING WEANED OFF STEROIDS PAIN IS CONTROLLED BETTER Code Status: FULL CODE Discussed Condition With: RN AND PT AND PULMONARY AND CM Discharge Planning: NEEDS CLEARANCE BY ALL (1) Back pain Qualifiers: Back pain location: thoracic back pain Chronicity: acute Back pain laterality: bilateral Qualified Code(s): M54.6 - Pain in thoracic spine
[2018-01-12] MEDS: Dextrose 5%/NaCl 0.45% Inj 1,000 ML IV.CONT SCH (12:16)
--- NOTE | 2018-01-12 19:19 | P.PN ---
Subjective Interval history: Back on o2 2 L. She has no chest pain. Path reports pending. On PO antibiotics. Physical Exam Vital signs: Vital Signs 01/11/18 20:00 01/12/18 00:00 01/12/18 04:00 Temperature 98.1 F 97.6 F 97.8 F Pulse Rate 84 81 78 Respiratory Rate 20 18 Blood Pressure 153/76 H 153/87 H 167/88 H Pulse Oximetry 93 L 95 94 L 01/12/18 08:00 01/12/18 12:00 01/12/18 16:00 Temperature 97.2 F L 97.5 F L 97.4 F L Pulse Rate 97 H 80 82 Respiratory Rate 18 20 Blood Pressure 155/80 H 141/86 H 152/79 H Pulse Oximetry 93 L 96 94 L Intake & Output 01/12/18 01/12/18 01/13/18 06:59 18:59 06:59 Intake Total 600 / 600 Balance 600 / 600 Weight 61.4 kg Intake: Oral 600 / 600 Other: # Voids 2 3 Date of Last Bowel Movement 01/11/18 Narrative: GENERAL: Elderly W/F in no acute distress SKIN: Warm and dry.Alert and cooperative HEAD: Atraumatic. Normocephalic. EYES: Pupils equal and round. No scleral icterus. No injection or drainage. ENT: No nasal bleeding or discharge. Mucous membranes pink and moist. NECK: Trachea midline. No JVD. No Enlarged Nodes. CARDIOVASCULAR: Regular rate and rhythm. RESPIRATORY: No accessory muscle use. Occ Wheezes over right chest. Breath sounds equal bilaterally. GASTROINTESTINAL: Abdomen soft, non-tender, nondistended. Hepatic and splenic margins not palpable. MUSCULOSKELETAL: Extremities without clubbing, cyanosis, or edema. No obvious deformities. NEUROLOGICAL: Awake and alert. No obvious cranial nerve deficits. Motor grossly within normal limits. Normal speech. PSYCHIATRIC: Appropriate mood and affect. - Urinary Catheter Management Indwelling Urethral Catheter Cath placed during this visit: no Results - Labs CBC & Chem 7: 01/10/18 08:29 01/10/18 08:29 - Procedures 01/09/2018 DATE OF PROCEDURE: 01/09/2018 PROCEDURE: Fiberoptic bronchoscopy with biopsy, brushings and washings. PREOPERATIVE DIAGNOSIS: Right lung masses. POSTOPERATIVE DIAGNOSIS: Right lung masses, rule out malignancy. ANESTHESIA: General with intubation. SURGEON: Maddie Bowden MD PROCEDURE AND FINDINGS: The patient was intubated under general anesthesia following which the Olympus IT 180 bronchoscope was used to visualize the bronchi. The scope was advanced through the endotracheal tube into the trachea. The trachea and janie appeared normal. The scope was then advanced into the right mainstem and right upper lobe segmental bronchi. The right upper lobe segmental bronchi demonstrated no endobronchial lesions. There were a few mucoid secretions, which were suctioned out. Next, the scope was advanced to the right middle lobe segmental bronchi. Right middle lobe segmental bronchi demonstrated some bloody secretions and there was narrowing of the lumen of the bronchus with mucosal ridging and edema. Next, the scope was advanced was the right lower lobe segmental bronchi. The right lower lobe segmental bronchi were occluded by over 50% with an irregular mucosal lesion which was friable and bled easily to touch. No discrete mass was identified, but biopsies were done from this area as well as brushings for cytology and washings were done for cytology and micro. There was mild bleeding observed, controlled with epinephrine solution. The scope was then advanced toward the left main stem bronchus. The left main stem bronchus, within 1 cm of the janie, had an irregular mucosal lesion which was also friable and biopsies were done from this area and saline washings were done. The scope was advanced towards the left upper lobe bronchus, but the left upper lobe bronchial opening was narrowed and the scope could not be advanced further. Saline washings were done and the procedure was then terminated. The patient tolerated the procedure well. Maddie Bowden MD Assessment and Plan - Assessment (1) Obstructive pneumonia Code(s): J18.9 - Pneumonia, unspecified organism Status: Acute (2) Back pain Code(s): M54.9 - Dorsalgia, unspecified Status: Acute (3) Lung mass Code(s): R91.8 - Other nonspecific abnormal finding of lung field Status: Acute (4) Aneurysm Code(s): I72.9 - Aneurysm of unspecified site Status: Acute (5) Azotemia Code(s): R79.89 - Other specified abnormal findings of blood chemistry Status : Acute (6) COPD (chronic obstructive pulmonary disease) Code(s): J44.9 - Chronic obstructive pulmonary disease, unspecified Status: Acute - Plan 1. Will D/C nebs 2. IS Q2H. 3. O2 2 L PRN and arrange home O2 if sats <89 on RA 4. Continue Ceftin 500 mg BID X5 days 5. Oncology evaluation for non small cell lung malignancy 6. PET CT as OP. 7. Add Decadron 4mg QID X 7days 8. Add ventolin HFA , 2 puffs qid prn and Spiriva , 1 cap daily (2) Back pain Qualifiers: Back pain location: thoracic back pain Chronicity: acute Back pain laterality: bilateral Qualified Code(s): M54.6 - Pain in thoracic spine
[2018-01-13] MEDS: Ibuprofen 400 MG Tablet PO SCH (06:21)
[2018-01-13] MEDS: Methocarbamol 500 MG Tablet PO SCH (06:21)
[2018-01-13] MEDS: Levothyroxine 88 MCG Tablet PO SCH (06:22)
[2018-01-13 07:16] VITALS: BP 154/88; PULSE 84; RESP 16; TEMP 98
[2018-01-13] MEDS: Senna/Docusate Sodium 8.6/50 MG Tablet PO SCH (08:39)
[2018-01-13] MEDS: Lisinopril 10 MG Tablet PO SCH (08:39)
[2018-01-13] MEDS: Morphine Sulfate 15 MG SR Tablet PO SCH (08:39)
[2018-01-13 08:51] LABS: Hematocrit 38.3 % (35.0-46.0); Hemoglobin 12.7 gm/dL (11.6-15.3); Lymph # (Auto) 0.4 th/mm3 (1.0-4.8); Lymph % (Auto) 3.7 % (9.0-44.0); Mean Corpuscular HGB Conc 33.2 % (32.0-36.0); Mean Corpuscular Hemoglobin 32.5 pg (27.0-34.0); Mean Corpuscular Volume 97.7 fL (80.0-100.0); Mean Platelet Volume 8.2 fL (7.0-11.0); Mono # (Auto) 0.8 th/mm3 (0.0-0.9); Mono % (Auto) 7.9 % (0.0-8.0); Neut # (Auto) 8.6 th/mm3 (1.8-7.7); Neut % (Auto) 88.4 % (16.0-70.0); Platelet Count 253 th/mm3 (150-450); Red Blood Count 3.92 mil/mm3 (4.00-5.30); Red Cell Distribution Width 13.7 % (11.6-17.2); White Blood Count 9.7 th/mm3 (4.0-11.0)
[2018-01-13 09:00] LABS: Anion Gap 12 meq/L (5-15); Aspartate Aminotransferase 32 U/L (15-37); Blood Urea Nitrogen 45 mg/dL (7-18); Calcium 8.4 mg/dL (8.5-10.1); Carbon Dioxide 26.1 meq/L (21.0-32.0); Chloride 101 meq/L (98-107); Glomerular Filtration Rate 65 mL/min (>89); Glucose,Random 93 mg/dL (74-106); Potassium 4.3 meq/L (3.5-5.1); Sodium 139 meq/L (136-145)
[2018-01-13] MEDS ORDERED: Tiotropium Bromide 18 MCG/ACT Inhaler INH SCH (09:00)
[2018-01-13 09:02] VITALS: O2SAT 92
[2018-01-13 09:03] LABS: Alanine Aminotransferase 31 U/L (10-53); Alkaline Phosphatase 65 U/L (45-117); Phosphorus 4.1 mg/dL (2.5-4.9); Total Protein 6.2 g/dL (6.4-8.2)
--- NOTE | 2018-01-13 11:04 | P.PNIM ---
Subjective Interval history: 72-year-old female with known history of hypertension, hyperlipidemia , history of tobacco use, hypothyroidism who presented to the hospital because of back pain. Patient states that she started having lower back pain approximately 3 weeks ago where progressively got worse to where it was very difficult and painful for her to go from a sitting or laying position to a standing position she went to her prior medical doctor's office 2 weeks ago to get her back evaluated. At that time she indicates that her primary medical doctor prescribed her an antidepressant. Her back pain never improved so she came to the emergency department for evaluation. Patient had workup done and found multiple medical problems in reference to her back pain. Patient has CT scan done which did indicate a disc bulge at L4-L5 with moderate central canal stenosis. Patient denied any neurological symptoms to include weakness, ambulation difficulty, paresthesia, paralysis, loss of bowel or bladder control. The CT also showed abdominal aortic aneurysm measuring 4.8 cm. Because of that reason. A thoracic CTA was performed which did indicate a 4.6 infrarenal aortic aneurysm with favorable neck anatomy for endovascular repair. The ER physician ssn/ssbn assistant navigator did contact cardiovascular surgery Dr. Abel, who indicated that the finding appears to be benign and not the cause of the patient's discomfort. He did not proceed the patient having surgery secondary to the possible lung cancer diagnosis is indicated that he would continue to follow up on the patient. However, because of that CT of the thorax patient was found to have multiple lung masses seen measuring 3.4 x 2.4 central right lung mass, 4.5 x 2.6 central mass in the superior segment of the right lower lobe associated with subsegmental bronchial occlusion. There was also bulky mediastinal adenopathy. Findings were concerning for primary lung neoplasm and mediastinum metastasis. Patient indicates that her primary medical doctor usually does chest x-rays on a annual basis and the last time she was there she indicates that she was told that they have been monitoring something in her chest x-ray that has not changed. She cannot be more specific about it. Patient states that the last time she was at her primary medical doctor's office 2 weeks ago she had a 22 pound weight loss as compared to the last time she was seen there. Patient denies any other symptoms other than the back pain and difficulty in movement. She denies any cough, congestion, shortness of breath, dyspnea, hemoptysis, abdominal pain, nausea, vomiting. 8-17 72-year-old female who is seen as a low back pain. Lung mass. Patient laying in bed. Stating that he still having significant pain in her back with difficulty with moving. Patient denies any bladder or fecal incontinence. Vital signs Are stable, patient remains afebrile. 01-07 Patient states no active shortness of breath at this time. No coughing. No other concerns at this time. Consents to bronchoscopy this Tuesday. 01-08 No active shortness of breath. Ready for procedure tomorrow. 01-09 HAD BRONCHOSCOPY TODAY WITH LUNG BIOPSY COMPLAINS OF BACK PAIN SEEN BY VASCULAR CAN HAVE FURTHER WORK UP OUTPATIENT WILL GET MRI OF THORACIC AND LUMBAR AREAS PAIN CONTROL AND TRY ROBAXIN AM LABS PAIN CONTROL 01-10 SEEN BY NEUROSURGERY AND ONCOLOGY RADIATION ONCOLOGY CONSULTED PAIN MEDS ADJUSTED BY ONCOLOGY AM LABS NEEDS MRI OF BRAIN TODAY STATES SHE IS MORE MOBILE TODAY WITH WALKER PAIN IS BETTER CONTROLLED AWAIT PATHOLOGY 01-11 FOLLOW UP LUNG MASSES WITH METS STEROIDS BEING STOPPED BY PULM STATES PAIN IS BETTER BUT IS ON PAIN MEDS INCREASE ACTIVITY MRI OF BRAIN NO METS HOPEFULLY HOME TOMORROW?? IF PATH IS BACK 01-12 AWAIT PATHOLOGY WANTS TO GO HOME STILL ON OXYGEN DID NOT FAIL WALK TEST ENOUGH TO GET OXYGEN BUT IS STILL ON OXYGEN HERE NEEDS TO BE WEANED OFF OXYGEN PRIOR TO DISCHARGE WILL NEED ANTIBIOTICS AND STEROIDS AND OUTPATIENT PET SCAN AT DISCHARGE 02-13 PASSED WALK TEST TODAY PATHOLOGY SHOWS NON SMALL CELL LUNG CANCER DOES NOT WANT HOME HEALTH CARE DOES NOT QUALIFY FOR OXYGEN SEEN BY [facility] FOLLOW UP ON TUE AT [facility] TO HOME TODAY Physical Exam Vital signs: Vital Signs 01/12/18 12:00 01/12/18 16:00 01/12/18 20:00 Temperature 97.5 F L 97.4 F L 98.1 F Pulse Rate 80 82 74 Respiratory Rate 18 20 18 Blood Pressure 141/86 H 152/79 H 160/90 H Pulse Oximetry 96 94 L 97 Pulse Oximetry [Exertion on Room Air] Pulse Oximetry [Resting on Room Air] Pulse Oximetry [Resting with Oxygen] 01/12/18 20:33 01/13/18 00:00 01/13/18 04:00 Temperature 97.8 F 97.4 F L Pulse Rate 74 71 Respiratory Rate 18 18 Blood Pressure 161/90 H 168/94 H Pulse Oximetry 96 95 94 L Pulse Oximetry [Exertion on Room Air] Pulse Oximetry [Resting on Room Air] Pulse Oximetry [Resting with Oxygen] 01/13/18 07:13 01/13/18 08:00 01/13/18 09:01 Temperature 98.0 F Pulse Rate 84 Respiratory Rate 16 Blood Pressure 154/88 H Pulse Oximetry 91 L 91 L Pulse Oximetry [Exertion on Room Air] 90 L Pulse Oximetry [Resting on Room Air] 92 L Pulse Oximetry [Resting with Oxygen] 96 Intake & Output 01/12/18 01/13/18 01/13/18 18:59 06:59 18:59 Intake Total 600 / 600 Balance 600 / 600 Weight 61.2 kg Intake: Oral 600 / 600 Other: # Voids 3 4 Narrative: GENERAL: Elderly W/F in no acute distress SKIN: Warm and dry.Alert and cooperative HEAD: Atraumatic. Normocephalic. EYES: Pupils equal and round. No scleral icterus. No injection or drainage. ENT: No nasal bleeding or discharge. Mucous membranes pink and moist. NECK: Trachea midline. No JVD. No Enlarged Nodes. CARDIOVASCULAR: Regular rate and rhythm. RESPIRATORY: No accessory muscle use. Occ Wheezes over right chest. Breath sounds equal bilaterally. GASTROINTESTINAL: Abdomen soft, non-tender, nondistended. Hepatic and splenic margins not palpable. MUSCULOSKELETAL: Extremities without clubbing, cyanosis, or edema. No obvious deformities. NEUROLOGICAL: Awake and alert. No obvious cranial nerve deficits. Motor grossly within normal limits. Normal speech. PSYCHIATRIC: Appropriate mood and affect. - Urinary Catheter Management Indwelling Urethral Catheter Cath placed during this visit: no Results - Labs CBC & Chem 7: 01/13/18 07:51 01/13/18 07:51 Laboratory Results - last 24 hr 01/13/18 01/13/18 07:51 07:51 WBC 9.7 RBC 3.92 L Hgb 12.7 Hct 38.3 MCV 97.7 MCH 32.5 MCHC 33.2 RDW 13.7 Plt Count 253 MPV 8.2 Neut % (Auto) 88.4 H Lymph % (Auto) 3.7 L [place] % (Auto) 7.9 Eos % (Auto) 0.0 Baso % (Auto) 0.0 Neut # (Auto) 8.6 H Lymph # (Auto) 0.4 L [place] # (Auto) 0.8 Eos # (Auto) 0.0 Baso # (Auto) 0.0 WBC Differential . Differential Comment Auto diff final Sodium 139 Potassium 4.3 Chloride 101 Carbon Dioxide 26.1 Anion Gap 12 BUN 45 H Creatinine 0.86 Estimated GFR 65 L Random Glucose 93 Calcium 8.4 L Phosphorus 4.1 Magnesium 2.0 Total Bilirubin 0.8 AST 32 ALT 31 Alkaline Phosphatase 65 Total Protein 6.2 L Albumin 3.0 L - Imaging Hip X-Ray 01/05/18 11:23 CONCLUSION: No evidence of recent bony injury. Lumbar Spine CT 01/05/18 11:23 CONCLUSION: 1. Abdominal aortic aneurysm measuring up to 4.8 cm transverse diameter. Bilateral presumed renal cysts. Findings better evaluated on CT abdomen and pelvis with contrast. 2. At L4-5 there is a mild broad-based disc protrusion and facet arthropathy with moderate central canal stenosis. 3. At L2-3, L3-4 and L5-S1 there is mild lateral recess and foraminal encroachment bilaterally. Thoracic Aorta CT 01/05/18 12:52 CONCLUSION: 1. 3.4 x 2.4 cm central right lung mass with adjacent 4.5 x 2.6 cm central mass in the superior segment of the right lower lobe and associated segmental bronchial occlusion. There is also associated bulky mediastinal adenopathy. 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 No definitive evidence for distal or contralateral metastatic disease. 2. 1 cm soft tissue density mass in the superior anterior right chest wall of uncertain clinical significance. This can be further evaluated if staging PET/ CT examination is performed. 3. 4.6 cm infrarenal aortic aneurysm with favorable neck anatomy for endovascular repair. 4. No aortic dissection. Lumbar Spine MRI 01/09/18 00:00 CONCLUSION: 1. 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 Thoracic Spine MRI 01/09/18 00:00 CONCLUSION: 1. Diffuse abnormal bone marrow signal with an appearance characteristic of metastatic disease. No pathologic fracture is identified. 2. No spinal canal stenosis or neural foraminal stenosis is present. 3. There is partial visualization of the previously documented mediastinal lymphadenopathy and there is likely increased atelectasis of the right lower lobe compared to the study from 4 days ago. Chest X-Ray 01/09/18 12:05 CONCLUSION: No pneumothorax is identified. Head MRI 01/10/18 00:00 CONCLUSION: Chronic small vessel ischemic and atrophic changes. - Procedures 01/09/2018 DATE OF PROCEDURE: 01/09/2018 PROCEDURE: Fiberoptic bronchoscopy with biopsy, brushings and washings. PREOPERATIVE DIAGNOSIS: Right lung masses. POSTOPERATIVE DIAGNOSIS: Right lung masses, rule out malignancy. ANESTHESIA: General with intubation. SURGEON: Maddie Bowden MD PROCEDURE AND FINDINGS: The patient was intubated under general anesthesia following which the Olympus IT 180 bronchoscope was used to visualize the bronchi. The scope was advanced through the endotracheal tube into the trachea. The trachea and janie appeared normal. The scope was then advanced into the right mainstem and right upper lobe segmental bronchi. The right upper lobe segmental bronchi demonstrated no endobronchial lesions. There were a few mucoid secretions, which were suctioned out. Next, the scope was advanced to the right middle lobe segmental bronchi. Right middle lobe segmental bronchi demonstrated some bloody secretions and there was narrowing of the lumen of the bronchus with mucosal ridging and edema. Next, the scope was advanced was the right lower lobe segmental bronchi. The right lower lobe segmental bronchi were occluded by over 50% with an irregular mucosal lesion which was friable and bled easily to touch. No discrete mass was identified, but biopsies were done from this area as well as brushings for cytology and washings were done for cytology and micro. There was mild bleeding observed, controlled with epinephrine solution. The scope was then advanced toward the left main stem bronchus. The left main stem bronchus, within 1 cm of the janie, had an irregular mucosal lesion which was also friable and biopsies were done from this area and saline washings were done. The scope was advanced towards the left upper lobe bronchus, but the left upper lobe bronchial opening was narrowed and the scope could not be advanced further. Saline washings were done and the procedure was then terminated. The patient tolerated the procedure well. Maddie Bowden MD Assessment and Plan - Assessment (1) Back pain Code(s): M54.9 - Dorsalgia, unspecified Status: Acute (2) Lung mass Code(s): R91.8 - Other nonspecific abnormal finding of lung field Status: Acute (3) Aneurysm Code(s): I72.9 - Aneurysm of unspecified site Status: Acute (4) Azotemia Code(s): R79.89 - Other specified abnormal findings of blood chemistry Status : Acute - Plan 72-year-old white female presents to the emergency room with progressive lower back pain with workup findings on imaging that showed 1. 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 -Obtain records from Dr. Tobi Jeffries's office for evaluation and comparison -Tumor markers actually shown on elevation in CA-19-9, CEA, LDH. CA-15-3, CA 125, AFP were negative. -May need also CT-guided biopsy depending on results of bronchoscopy and biopsy HAD BRONCHOSCOPY 01-09 PATHOLOGY CAME BACK WITH NON SMALL CELL LUNG CANCER 2. Back pain -CT scan does obviously show an etiology of her discomfort being facet arthropathy, bulging discs with moderate spinal cord stenosis -Patient will likely require further evaluation, management with either physical therapy, neurosurgical consultation for recommendations -We will start with Flexeril for muscle relaxation, hot pack administration. Anti-inflammatory for pain control -Physical therapy evaluation Appreciate neurosurgical recommendations which revealed further workup with MRI of the lumbar thoracic spine. WILL GET MRIS OF LUMBAR AND THORACIC- REVIEWED HAD MRI OF BRAIN THIS IS NEGATIVE 3. 4.6 cm infrarenal aortic aneurysm -CTA indicating that it has favorable neck anatomy for endovascular repair -ER documentation indicates that there was discussion with cardiovascular surgery who indicated that the finding appear to be benign and not causing the patient discomfort. He does not foresee the patient having surgery secondary to the possible lung cancer diagnosis, but will follow up on the patient. -Patient will need strict blood pressure management FOLLOW UP OUTPATIENT 4. Azotemia, stable -Unknown whether patient has chronic versus acute renal abnormality -Maintain IV fluids -Monitor renal function 5. Hypertension, hyperlipidemia -Home medications are unknown at this time. Continue with lisinopril. -Vasotec/clonidine as needed 6. DVT prophylaxis -Sequential compression devices, avoid chemical prophylaxis secondary bronchoscopy and biopsy scheduled for tomorrow Discharge Planning: Home when cleared by pulmonary AND OFF OXYGEN TRY TO WEAN OFF OXYGEN SO CAN GO HOME TOMORROW ELEVATED CA 19-9 WILL CONSULT ONCOLOGY PAIN CONTROL WILL NEED PAIN MEDS AT DISCHARGE BEING WEANED OFF STEROIDS PAIN IS CONTROLLED BETTER CLEARED BY ONCOLOGY AND PULMONARY WILL DC TO HOME TODAY Code Status: FULL CODE Discussed Condition With: RN AND PT AND ONCOLOGY AND CM Discharge Planning: DC TO HOME TODAY (1) Back pain Qualifiers: Back pain location: thoracic back pain Chronicity: acute Back pain laterality: bilateral Qualified Code(s): M54.6 - Pain in thoracic spine
--- NOTE | 2018-01-13 11:21 | P.DS ---
Date of admission: 01/09/18 14:45 Primary care physician: Tobi Jeffries DO Attending physician on discharge: Jay Robertson Anticipated date of discharge: 01/13/18 Brief History from admission: 72-year-old female with known history of hypertension, hyperlipidemia , history of tobacco use, hypothyroidism who presented to the hospital because of back pain. Patient states that she started having lower back pain approximately 3 weeks ago where progressively got worse to where it was very difficult and painful for her to go from a sitting or laying position to a standing position she went to her prior medical doctor's office 2 weeks ago to get her back evaluated. At that time she indicates that her primary medical doctor prescribed her an antidepressant. Her back pain never improved so she came to the emergency department for evaluation. Patient had workup done and found multiple medical problems in reference to her back pain. Patient has CT scan done which did indicate a disc bulge at L4-L5 with moderate central canal stenosis. Patient denied any neurological symptoms to include weakness, ambulation difficulty, paresthesia, paralysis, loss of bowel or bladder control. The CT also showed abdominal aortic aneurysm measuring 4.8 cm. Because of that reason. A thoracic CTA was performed which did indicate a 4.6 infrarenal aortic aneurysm with favorable neck anatomy for endovascular repair. The ER physician assistant spa director did contact cardiovascular surgery Dr. Abel, who indicated that the finding appears to be benign and not the cause of the patient's discomfort. He did not proceed the patient having surgery secondary to the possible lung cancer diagnosis is indicated that he would continue to follow up on the patient. However, because of that CT of the thorax patient was found to have multiple lung masses seen measuring 3.4 x 2.4 central right lung mass, 4.5 x 2.6 central mass in the superior segment of the right lower lobe associated with subsegmental bronchial occlusion. There was also bulky mediastinal adenopathy. Findings were concerning for primary lung neoplasm and mediastinum metastasis. Patient indicates that her primary medical doctor usually does chest x-rays on a annual basis and the last time she was there she indicates that she was told that they have been monitoring something in her chest x-ray that has not changed. She cannot be more specific about it. Patient states that the last time she was at her primary medical doctor's office 2 weeks ago she had a 22 pound weight loss as compared to the last time she was seen there. Patient denies any other symptoms other than the back pain and difficulty in movement. She denies any cough, congestion, shortness of breath, dyspnea, hemoptysis, abdominal pain, nausea, vomiting. DS: Diagnosis - Discharge Diagnosis (1) Back pain Status: Acute (2) Lung mass Status: Acute (3) Aneurysm Status: Chronic (4) Azotemia Status: Acute DS: Medications - Discharge Medications Prescriptions: albuterol sulfate 2.5 mg NEB DAILY NEB PRN #180 amp PRN Reason: Shortness Of Breath cefuroxime axetil 500 mg PO Q12HR #14 tab ibuprofen 400 mg PO Q8HR #90 tab levothyroxine [Synthroid] 88 mcg PO DAILY@0600 #30 tab lisinopril 10 mg PO DAILY #30 tab methocarbamol 1,000 mg PO Q8HR #180 tab morphine 15 mg PO Q12HR #60 tab oxycodone-acetaminophen 1 tab PO Q6H PRN #28 tab PRN Reason: Pain prednisone 1 pack PO PER PKG DIR #1 each sennosides-docusate sodium [Senna Plus] 2 tab PO BID #120 tab tiotropium bromide [Spiriva with HandiHaler] 18 mcg INH DAILY #30 inh DS: Summary Hospital Course: 72-year-old female with known history of hypertension, hyperlipidemia , history of tobacco use, hypothyroidism who presented to the hospital because of back pain. Patient states that she started having lower back pain approximately 3 weeks ago where progressively got worse to where it was very difficult and painful for her to go from a sitting or laying position to a standing position she went to her prior medical doctor's office 2 weeks ago to get her back evaluated. At that time she indicates that her primary medical doctor prescribed her an antidepressant. Her back pain never improved so she came to the emergency department for evaluation. Patient had workup done and found multiple medical problems in reference to her back pain. Patient has CT scan done which did indicate a disc bulge at L4-L5 with moderate central canal stenosis. Patient denied any neurological symptoms to include weakness, ambulation difficulty, paresthesia, paralysis, loss of bowel or bladder control. The CT also showed abdominal aortic aneurysm measuring 4.8 cm. Because of that reason. A thoracic CTA was performed which did indicate a 4.6 infrarenal aortic aneurysm with favorable neck anatomy for endovascular repair. The ER physician assistant spa director did contact cardiovascular surgery Dr. Abel, who indicated that the finding appears to be benign and not the cause of the patient's discomfort. He did not proceed the patient having surgery secondary to the possible lung cancer diagnosis is indicated that he would continue to follow up on the patient. However, because of that CT of the thorax patient was found to have multiple lung masses seen measuring 3.4 x 2.4 central right lung mass, 4.5 x 2.6 central mass in the superior segment of the right lower lobe associated with subsegmental bronchial occlusion. There was also bulky mediastinal adenopathy. Findings were concerning for primary lung neoplasm and mediastinum metastasis. Patient indicates that her primary medical doctor usually does chest x-rays on a annual basis and the last time she was there she indicates that she was told that they have been monitoring something in her chest x-ray that has not changed. She cannot be more specific about it. Patient states that the last time she was at her primary medical doctor's office 2 weeks ago she had a 22 pound weight loss as compared to the last time she was seen there. Patient denies any other symptoms other than the back pain and difficulty in movement. She denies any cough, congestion, shortness of breath, dyspnea, hemoptysis, abdominal pain, nausea, vomiting. 8-17 72-year-old female who is seen as a low back pain. Lung mass. Patient laying in bed. Stating that he still having significant pain in her back with difficulty with moving. Patient denies any bladder or fecal incontinence. Vital signs Are stable, patient remains afebrile. 8-18 Patient states no active shortness of breath at this time. No coughing. No other concerns at this time. Consents to bronchoscopy this Tuesday. 8-19 No active shortness of breath. Ready for procedure tomorrow. 8-20 HAD BRONCHOSCOPY TODAY WITH LUNG BIOPSY COMPLAINS OF BACK PAIN SEEN BY VASCULAR CAN HAVE FURTHER WORK UP OUTPATIENT WILL GET MRI OF THORACIC AND LUMBAR AREAS PAIN CONTROL AND TRY ROBAXIN AM LABS PAIN CONTROL 8-21 SEEN BY NEUROSURGERY AND ONCOLOGY RADIATION ONCOLOGY CONSULTED PAIN MEDS ADJUSTED BY ONCOLOGY AM LABS NEEDS MRI OF BRAIN TODAY STATES SHE IS MORE MOBILE TODAY WITH WALKER PAIN IS BETTER CONTROLLED AWAIT PATHOLOGY 8-22 FOLLOW UP LUNG MASSES WITH METS STEROIDS BEING STOPPED BY PULM STATES PAIN IS BETTER BUT IS ON PAIN MEDS INCREASE ACTIVITY MRI OF BRAIN NO METS HOPEFULLY HOME TOMORROW?? 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 Patient is having significant pain caused by and cancer pain with pain of malignancy which will last more than 3 days. Trial of alternative treatment options other than prescribed opioids has not helped. I believe that it is medically necessary to treat the patients pain because it is affecting patients ability to HAVE QUALITY OF LIFE. - Time Spent with Patient Total time spent providing and/or coordinating discharge services: Greater than 30 minutes - Quality: VTE Deep Vein Thrombosis/Pulmonary Embolism Present on Admission: No Exam Vital signs: Vital Signs 01/12/18 12:00 01/12/18 16:00 01/12/18 20:00 Temperature 97.5 F L 97.4 F L 98.1 F Pulse Rate 80 82 74 Respiratory Rate 18 20 18 Blood Pressure 141/86 H 152/79 H 160/90 H Pulse Oximetry 96 94 L 97 Pulse Oximetry [Exertion on Room Air] Pulse Oximetry [Resting on Room Air] Pulse Oximetry [Resting with Oxygen] 01/12/18 20:33 01/13/18 00:00 01/13/18 04:00 Temperature 97.8 F 97.4 F L Pulse Rate 74 71 Respiratory Rate 18 18 Blood Pressure 161/90 H 168/94 H Pulse Oximetry 96 95 94 L Pulse Oximetry [Exertion on Room Air] Pulse Oximetry [Resting on Room Air] Pulse Oximetry [Resting with Oxygen] 01/13/18 07:13 01/13/18 08:00 01/13/18 09:01 Temperature 98.0 F Pulse Rate 84 Respiratory Rate 16 Blood Pressure 154/88 H Pulse Oximetry 91 L 91 L Pulse Oximetry [Exertion on Room Air] 90 L Pulse Oximetry [Resting on Room Air] 92 L Pulse Oximetry [Resting with Oxygen] 96 Intake & Output 01/12/18 01/13/18 01/13/18 18:59 06:59 18:59 Intake Total 600 / 600 Balance 600 / 600 Weight 61.2 kg Intake: Oral 600 / 600 Other: # Voids 3 4 Narrative: GENERAL: Elderly W/F in no acute distress SKIN: Warm and dry.Alert and cooperative HEAD: Atraumatic. Normocephalic. EYES: Pupils equal and round. No scleral icterus. No injection or drainage. ENT: No nasal bleeding or discharge. Mucous membranes pink and moist. NECK: Trachea midline. No JVD. No Enlarged Nodes. CARDIOVASCULAR: Regular rate and rhythm. RESPIRATORY: No accessory muscle use. Occ Wheezes over right chest. Breath sounds equal bilaterally. GASTROINTESTINAL: Abdomen soft, non-tender, nondistended. Hepatic and splenic margins not palpable. MUSCULOSKELETAL: Extremities without clubbing, cyanosis, or edema. No obvious deformities. NEUROLOGICAL: Awake and alert. No obvious cranial nerve deficits. Motor grossly within normal limits. Normal speech. PSYCHIATRIC: Appropriate mood and affect. Results Procedures completed during hospitalization: 01/09/2018 DATE OF PROCEDURE: 01/09/2018 PROCEDURE: Fiberoptic bronchoscopy with biopsy, brushings and washings. PREOPERATIVE DIAGNOSIS: Right lung masses. POSTOPERATIVE DIAGNOSIS: Right lung masses, rule out malignancy. ANESTHESIA: General with intubation. SURGEON: Maddie Bowden MD PROCEDURE AND FINDINGS: The patient was intubated under general anesthesia following which the Olympus IT 180 bronchoscope was used to visualize the bronchi. The scope was advanced through the endotracheal tube into the trachea. The trachea and janie appeared normal. The scope was then advanced into the right mainstem and right upper lobe segmental bronchi. The right upper lobe segmental bronchi demonstrated no endobronchial lesions. There were a few mucoid secretions, which were suctioned out. Next, the scope was advanced to the right middle lobe segmental bronchi. Right middle lobe segmental bronchi demonstrated some bloody secretions and there was narrowing of the lumen of the bronchus with mucosal ridging and edema. Next, the scope was advanced was the right lower lobe segmental bronchi. The right lower lobe segmental bronchi were occluded by over 50% with an irregular mucosal lesion which was friable and bled easily to touch. No discrete mass was identified, but biopsies were done from this area as well as brushings for cytology and washings were done for cytology and micro. There was mild bleeding observed, controlled with epinephrine solution. The scope was then advanced toward the left main stem bronchus. The left main stem bronchus, within 1 cm of the janie, had an irregular mucosal lesion which was also friable and biopsies were done from this area and saline washings were done. The scope was advanced towards the left upper lobe bronchus, but the left upper lobe bronchial opening was narrowed and the scope could not be advanced further. Saline washings were done and the procedure was then terminated. The patient tolerated the procedure well. Maddie Bowden MD Completed studies during hospitalization: Laboratory Results CBC w Diff Auto diff final 01/06/18 13:25 WBC 9.7 th/mm3 (4.0-11.0) 01/13/18 07:51 RBC 3.92 mil/mm3 (4.00-5.30) L 01/13/18 07:51 Hgb 12.7 gm/dL (11.6-15.3) 01/13/18 07:51 Hct 38.3 % (35.0-46.0) 01/13/18 07:51 MCV 97.7 fL (80.0-100.0) 01/13/18 07:51 MCH 32.5 pg (27.0-34.0) 01/13/18 07:51 MCHC 33.2 % (32.0-36.0) 01/13/18 07:51 RDW 13.7 % (11.6-17.2) 01/13/18 07:51 Plt Count 253 th/mm3 (150-450) 01/13/18 07:51 MPV 8.2 fL (7.0-11.0) 01/13/18 07:51 Neut % (Auto) 88.4 % (16.0-70.0) H 01/13/18 07:51 Lymph % (Auto) 3.7 % (9.0-44.0) L 01/13/18 07:51 [place] % (Auto) 7.9 % (0.0-8.0) 01/13/18 07:51 Eos % (Auto) 0.0 % (0.0-4.0) 01/13/18 07:51 Baso % (Auto) 0.0 % (0.0-2.0) 01/13/18 07:51 Neut # (Auto) 8.6 th/mm3 (1.8-7.7) H 01/13/18 07:51 Lymph # (Auto) 0.4 th/mm3 (1.0-4.8) L 01/13/18 07:51 [place] # (Auto) 0.8 th/mm3 (0.0-0.9) 01/13/18 07:51 Eos # (Auto) 0.0 th/mm3 (0.0-0.4) 01/13/18 07:51 Baso # (Auto) 0.0 th/mm3 (0.0-0.2) 01/13/18 07:51 WBC Differential . 01/13/18 07:51 Differential Comment Auto diff final 01/13/18 07:51 PT 11.5 sec (9.8-11.6) 01/06/18 13:25 INR 1.1 Ratio 01/06/18 13:25 APTT 23.1 sec (24.3-30.1) L 01/06/18 13:25 Sodium 139 meq/L (136-145) 01/13/18 07:51 Potassium 4.3 meq/L (3.5-5.1) 01/13/18 07:51 Chloride 101 meq/L (98-107) 01/13/18 07:51 Carbon Dioxide 26.1 meq/L (21.0-32.0) 01/13/18 07:51 Anion Gap 12 meq/L (5-15) 01/13/18 07:51 BUN 45 mg/dL (7-18) H 01/13/18 07:51 Creatinine 0.86 mg/dL (0.50-1.00) 01/13/18 07:51 Estimated GFR 65 mL/min (>89) L 01/13/18 07:51 Random Glucose 93 mg/dL (74-106) 01/13/18 07:51 Hemoglobin A1c 5.5 % (4.3-6.0) 01/10/18 08:29 Calcium 8.4 mg/dL (8.5-10.1) L 01/13/18 07:51 Phosphorus 4.1 mg/dL (2.5-4.9) 01/13/18 07:51 Magnesium 2.0 mg/dL (1.5-2.5) 01/13/18 07:51 Total Bilirubin 0.8 mg/dL (0.2-1.0) 01/13/18 07:51 AST 32 U/L (15-37) 01/13/18 07:51 ALT 31 U/L (10-53) 01/13/18 07:51 Alkaline Phosphatase 65 U/L (45-117) 01/13/18 07:51 Lactate Dehydrogenase 270 U/L (84-246) H 01/05/18 22:45 Total Protein 6.2 g/dL (6.4-8.2) L 01/13/18 07:51 Albumin 3.0 g/dL (3.4-5.0) L 01/13/18 07:51 Lipase 279 U/L (73-393) 01/05/18 13:15 Tumor Marker AFP 3.8 ng/mL (0.5-8.0) 01/05/18 22:45 Carcinoembryonic Ag 18.4 ng/mL (0.2-5.0) H 01/05/18 22:45 CA 15-3 Antigen 11.5 U/mL (0.0-32.4) 01/05/18 22:45 CA 19-9 Antigen 653.0 U/mL (0.0-35.0) H 01/05/18 22:45 CA 125 Antigen 7.1 U/mL (0.0-30.2) 01/05/18 22:45 TSH 0.413 uIU/mL (0.358-3.740) 01/10/18 08:29 Free T4 1.28 ng/dL (0.76-1.46) 01/10/18 08:29 Urine Color Yellow (Yellw/Straw) 01/05/18 20:02 Urine Clarity Clear (Clear) 01/05/18 20:02 Urine pH 5.5 (5.0-8.5) 01/05/18 20:02 Ur Specific [place] Less/equal 1.005 (1.002-1.035) 01/05/18 20:02 Urine Protein 100 mg/dL (Neg-Trace) H 01/05/18 20:02 Urine Glucose (UA) Negative mg/dL (Negative) 01/05/18 20:02 Urine Ketones Negative mg/dL (Negative) 01/05/18 20:02 Urine Occult Blood Negative (Negative) 01/05/18 20:02 Urine Nitrate Negative (Negative) 01/05/18 20:02 Urine Bilirubin Negative (Negative) 01/05/18 20:02 Urine Urobilinogen 0.2 mg/dL (Less than 2) 01/05/18 20:02 Ur Leukocyte Esterase Negative (Negative) 01/05/18 20:02 Urine RBC 0-3 /hpf (0-3) 01/05/18 20:02 Urine WBC 0-5 /hpf (0-5) 01/05/18 20:02 Ur Squamous Epith Cells 0-5 /hpf (0-5) 01/05/18 20:02 Micro UA Comment Culture not ind 01/05/18 20:02 Impressions Hip X-Ray 01/05/18 11:23 CONCLUSION: No evidence of recent bony injury. Lumbar Spine CT 01/05/18 11:23 CONCLUSION: 1. Abdominal aortic aneurysm measuring up to 4.8 cm transverse diameter. Bilateral presumed renal cysts. Findings better evaluated on CT abdomen and pelvis with contrast. 2. At L4-5 there is a mild broad-based disc protrusion and facet arthropathy with moderate central canal stenosis. 3. At L2-3, L3-4 and L5-S1 there is mild lateral recess and foraminal encroachment bilaterally. Thoracic Aorta CT 01/05/18 12:52 CONCLUSION: 1. 3.4 x 2.4 cm central right lung mass with adjacent 4.5 x 2.6 cm central mass in the superior segment of the right lower lobe and associated segmental bronchial occlusion. There is also associated bulky mediastinal adenopathy. 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 No definitive evidence for distal or contralateral metastatic disease. 2. 1 cm soft tissue density mass in the superior anterior right chest wall of uncertain clinical significance. This can be further evaluated if staging PET/ CT examination is performed. 3. 4.6 cm infrarenal aortic aneurysm with favorable neck anatomy for endovascular repair. 4. No aortic dissection. Lumbar Spine MRI 01/09/18 00:00 CONCLUSION: 1. 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 Thoracic Spine MRI 01/09/18 00:00 CONCLUSION: 1. Diffuse abnormal bone marrow signal with an appearance characteristic of metastatic disease. No pathologic fracture is identified. 2. No spinal canal stenosis or neural foraminal stenosis is present. 3. There is partial visualization of the previously documented mediastinal lymphadenopathy and there is likely increased atelectasis of the right lower lobe compared to the study from 4 days ago. Chest X-Ray 01/09/18 12:05 CONCLUSION: No pneumothorax is identified. Head MRI 01/10/18 00:00 CONCLUSION: Chronic small vessel ischemic and atrophic changes. Pending studies at discharge: Pending at discharge 01/09/18 14:44 Cytology [PTH] Routine Labs on day of discharge: Labs from last 24 hours 01/13/18 01/13/18 07:51 07:51 WBC 9.7 RBC 3.92 L Hgb 12.7 Hct 38.3 MCV 97.7 MCH 32.5 MCHC 33.2 RDW 13.7 Plt Count 253 MPV 8.2 Neut % (Auto) 88.4 H Lymph % (Auto) 3.7 L [place] % (Auto) 7.9 Eos % (Auto) 0.0 Baso % (Auto) 0.0 Neut # (Auto) 8.6 H Lymph # (Auto) 0.4 L [place] # (Auto) 0.8 Eos # (Auto) 0.0 Baso # (Auto) 0.0 WBC Differential . Differential Comment Auto diff final Sodium 139 Potassium 4.3 Chloride 101 Carbon Dioxide 26.1 Anion Gap 12 BUN 45 H Creatinine 0.86 Estimated GFR 65 L Random Glucose 93 Calcium 8.4 L Phosphorus 4.1 Magnesium 2.0 Total Bilirubin 0.8 AST 32 ALT 31 Alkaline Phosphatase 65 Total Protein 6.2 L Albumin 3.0 L - Impressions ITS Impressions Hip X-Ray 01/05/18 11:23 CONCLUSION: No evidence of recent bony injury. Lumbar Spine CT 01/05/18 11:23 CONCLUSION: 1. Abdominal aortic aneurysm measuring up to 4.8 cm transverse diameter. Bilateral presumed renal cysts. Findings better evaluated on CT abdomen and pelvis with contrast. 2. At L4-5 there is a mild broad-based disc protrusion and facet arthropathy with moderate central canal stenosis. 3. At L2-3, L3-4 and L5-S1 there is mild lateral recess and foraminal encroachment bilaterally. Thoracic Aorta CT 01/05/18 12:52 CONCLUSION: 1. 3.4 x 2.4 cm central right lung mass with adjacent 4.5 x 2.6 cm central mass in the superior segment of the right lower lobe and associated segmental bronchial occlusion. There is also associated bulky mediastinal adenopathy. 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 No definitive evidence for distal or contralateral metastatic disease. 2. 1 cm soft tissue density mass in the superior anterior right chest wall of uncertain clinical significance. This can be further evaluated if staging PET/ CT examination is performed. 3. 4.6 cm infrarenal aortic aneurysm with favorable neck anatomy for endovascular repair. 4. No aortic dissection. Lumbar Spine MRI 01/09/18 00:00 CONCLUSION: 1. 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 Thoracic Spine MRI 01/09/18 00:00 CONCLUSION: 1. Diffuse abnormal bone marrow signal with an appearance characteristic of metastatic disease. No pathologic fracture is identified. 2. No spinal canal stenosis or neural foraminal stenosis is present. 3. There is partial visualization of the previously documented mediastinal lymphadenopathy and there is likely increased atelectasis of the right lower lobe compared to the study from 4 days ago. Chest X-Ray 01/09/18 12:05 CONCLUSION: No pneumothorax is identified. Head MRI 01/10/18 00:00 CONCLUSION: Chronic small vessel ischemic and atrophic changes. Discharge Plan - Discharge Disposition Patient Disposition: 01 Discharge Home - Discharge Condition Condition: Good - Discharge Order Discharge Orders: Discharge Order (Routine); Ordered 01/13/18 Ordered By: Jay Robertson Vascular Surgery Clear for Discharge (Routine); Ordered 01/10/18 Ordered By: Senait Calixto - Discharge Details Anticipated Discharge Date: 01/13/18 Discharge Comment: DC TO HOME TODAY - Physicians Team Primary Care Provider: Tobi Jeffries Attending Provider: Jay Robertson Other Providers: Blake Bowden MD ; Cal Martinez MD ; Rex Mckee MD ; Rajendra Ojeda MD
--- NOTE | 2018-01-13 18:18 | P.PN ---
Subjective Interval history: Off O2 and is doing well. She will see oncology as OP in 5 days. No chest pains and O2 sats are 96. Physical Exam Vital signs: Vital Signs 01/12/18 20:00 01/12/18 20:33 01/13/18 00:00 Temperature 98.1 F 97.8 F Pulse Rate 74 74 Respiratory Rate 18 18 Blood Pressure 160/90 H 161/90 H Pulse Oximetry 97 96 95 Pulse Oximetry [Exertion on Room Air] Pulse Oximetry [Resting on Room Air] Pulse Oximetry [Resting with Oxygen] 01/13/18 04:00 01/13/18 07:13 01/13/18 08:00 Temperature 97.4 F L 98.0 F Pulse Rate 71 84 Respiratory Rate 18 16 Blood Pressure 168/94 H 154/88 H Pulse Oximetry 94 L 91 L 91 L Pulse Oximetry [Exertion on Room Air] Pulse Oximetry [Resting on Room Air] Pulse Oximetry [Resting with Oxygen] 01/13/18 09:01 Temperature Pulse Rate Respiratory Rate Blood Pressure Pulse Oximetry Pulse Oximetry [Exertion on Room Air] 90 L Pulse Oximetry [Resting on Room Air] 92 L Pulse Oximetry [Resting with Oxygen] 96 Intake & Output 01/12/18 01/13/18 01/13/18 18:59 06:59 18:59 Intake Total 600 / 600 Balance 600 / 600 Weight 61.2 kg Intake: Oral 600 / 600 Other: # Voids 3 4 Narrative: GENERAL: Elderly W/F in no acute distress SKIN: Warm and dry.Alert and cooperative HEAD: Atraumatic. Normocephalic. EYES: Pupils equal and round. No scleral icterus. No injection or drainage. ENT: No nasal bleeding or discharge. Mucous membranes pink and moist. NECK: Trachea midline. No JVD. No Enlarged Nodes. CARDIOVASCULAR: Regular rate and rhythm. No Murmur. RESPIRATORY: No accessory muscle use. Occ Wheezes over right chest. Breath sounds equal bilaterally. GASTROINTESTINAL: Abdomen soft, non-tender, nondistended. Hepatic and splenic margins not palpable. MUSCULOSKELETAL: Extremities without clubbing, cyanosis, or edema. No obvious deformities. NEUROLOGICAL: Awake and alert. No obvious cranial nerve deficits. Motor grossly within normal limits. Normal speech. PSYCHIATRIC: Appropriate mood and affect. - Urinary Catheter Management Indwelling Urethral Catheter Cath placed during this visit: no Results - Labs CBC & Chem 7: 01/13/18 07:51 01/13/18 07:51 Laboratory Results - last 24 hr 01/13/18 01/13/18 07:51 07:51 WBC 9.7 RBC 3.92 L Hgb 12.7 Hct 38.3 MCV 97.7 MCH 32.5 MCHC 33.2 RDW 13.7 Plt Count 253 MPV 8.2 Neut % (Auto) 88.4 H Lymph % (Auto) 3.7 L [place] % (Auto) 7.9 Eos % (Auto) 0.0 Baso % (Auto) 0.0 Neut # (Auto) 8.6 H Lymph # (Auto) 0.4 L [place] # (Auto) 0.8 Eos # (Auto) 0.0 Baso # (Auto) 0.0 WBC Differential . Differential Comment Auto diff final Sodium 139 Potassium 4.3 Chloride 101 Carbon Dioxide 26.1 Anion Gap 12 BUN 45 H Creatinine 0.86 Estimated GFR 65 L Random Glucose 93 Calcium 8.4 L Phosphorus 4.1 Magnesium 2.0 Total Bilirubin 0.8 AST 32 ALT 31 Alkaline Phosphatase 65 Total Protein 6.2 L Albumin 3.0 L - Procedures 01/09/2018 DATE OF PROCEDURE: 01/09/2018 PROCEDURE: Fiberoptic bronchoscopy with biopsy, brushings and washings. PREOPERATIVE DIAGNOSIS: Right lung masses. POSTOPERATIVE DIAGNOSIS: Right lung masses, rule out malignancy. ANESTHESIA: General with intubation. SURGEON: Maddie Bowden MD PROCEDURE AND FINDINGS: The patient was intubated under general anesthesia following which the Olympus IT 180 bronchoscope was used to visualize the bronchi. The scope was advanced through the endotracheal tube into the trachea. The trachea and janie appeared normal. The scope was then advanced into the right mainstem and right upper lobe segmental bronchi. The right upper lobe segmental bronchi demonstrated no endobronchial lesions. There were a few mucoid secretions, which were suctioned out. Next, the scope was advanced to the right middle lobe segmental bronchi. Right middle lobe segmental bronchi demonstrated some bloody secretions and there was narrowing of the lumen of the bronchus with mucosal ridging and edema. Next, the scope was advanced was the right lower lobe segmental bronchi. The right lower lobe segmental bronchi were occluded by over 50% with an irregular mucosal lesion which was friable and bled easily to touch. No discrete mass was identified, but biopsies were done from this area as well as brushings for cytology and washings were done for cytology and micro. There was mild bleeding observed, controlled with epinephrine solution. The scope was then advanced toward the left main stem bronchus. The left main stem bronchus, within 1 cm of the janie, had an irregular mucosal lesion which was also friable and biopsies were done from this area and saline washings were done. The scope was advanced towards the left upper lobe bronchus, but the left upper lobe bronchial opening was narrowed and the scope could not be advanced further. Saline washings were done and the procedure was then terminated. The patient tolerated the procedure well. V. Ac Bowden MD Assessment and Plan - Assessment (1) Obstructive pneumonia Code(s): J18.9 - Pneumonia, unspecified organism Status: Acute (2) Back pain Code(s): M54.9 - Dorsalgia, unspecified Status: Acute (3) Lung mass Code(s): R91.8 - Other nonspecific abnormal finding of lung field Status: Acute (4) Aneurysm Code(s): I72.9 - Aneurysm of unspecified site Status: Chronic (5) Azotemia Code(s): R79.89 - Other specified abnormal findings of blood chemistry Status : Acute (6) COPD (chronic obstructive pulmonary disease) Code(s): J44.9 - Chronic obstructive pulmonary disease, unspecified Status: Acute - Plan 1. Home today 2. IS Q4H. 3. O2 2 L PRN and arrange home O2 if sats <89 on RA 4. Continue Ceftin 500 mg BID X5 days 5. Oncology evaluation for non small cell lung malignancy 6. PET CT as OP. 7. Decadron 4mg QID X 5 days 8. ACont ventolin HFA , 2 puffs qid prn and Spiriva , 1 cap daily 9. Will F/U as OP in 2 weeks. (2) Back pain Qualifiers: Back pain location: thoracic back pain Chronicity: acute Back pain laterality: bilateral Qualified Code(s): M54.6 - Pain in thoracic spine
--- NOTE | 2018-01-13 18:25 | P.PNONC ---
Subjective Interval history: anxious to go home Feels OK Back pain is better. Objective Vital Signs/Intake & Output: Vital Signs 01/12/18 20:00 01/12/18 20:33 01/13/18 00:00 Temperature 98.1 F 97.8 F Pulse Rate 74 74 Respiratory Rate 18 18 Blood Pressure 160/90 H 161/90 H Pulse Oximetry 97 96 95 Pulse Oximetry [Exertion on Room Air] Pulse Oximetry [Resting on Room Air] Pulse Oximetry [Resting with Oxygen] 01/13/18 04:00 01/13/18 07:13 01/13/18 08:00 Temperature 97.4 F L 98.0 F Pulse Rate 71 84 Respiratory Rate 18 16 Blood Pressure 168/94 H 154/88 H Pulse Oximetry 94 L 91 L 91 L Pulse Oximetry [Exertion on Room Air] Pulse Oximetry [Resting on Room Air] Pulse Oximetry [Resting with Oxygen] 01/13/18 09:01 Temperature Pulse Rate Respiratory Rate Blood Pressure Pulse Oximetry Pulse Oximetry [Exertion on Room Air] 90 L Pulse Oximetry [Resting on Room Air] 92 L Pulse Oximetry [Resting with Oxygen] 96 Intake & Output 01/12/18 01/13/18 01/13/18 18:59 06:59 18:59 Intake Total 600 / 600 Balance 600 / 600 Weight 61.2 kg Intake: Oral 600 / 600 Other: # Voids 3 4 Result Diagrams: 01/13/18 07:51 01/13/18 07:51 Laboratory Results: Laboratory Results - last 24 hr 01/13/18 01/13/18 07:51 07:51 WBC 9.7 RBC 3.92 L Hgb 12.7 Hct 38.3 MCV 97.7 MCH 32.5 MCHC 33.2 RDW 13.7 Plt Count 253 MPV 8.2 Neut % (Auto) 88.4 H Lymph % (Auto) 3.7 L [place] % (Auto) 7.9 Eos % (Auto) 0.0 Baso % (Auto) 0.0 Neut # (Auto) 8.6 H Lymph # (Auto) 0.4 L [place] # (Auto) 0.8 Eos # (Auto) 0.0 Baso # (Auto) 0.0 WBC Differential . Differential Comment Auto diff final Sodium 139 Potassium 4.3 Chloride 101 Carbon Dioxide 26.1 Anion Gap 12 BUN 45 H Creatinine 0.86 Estimated GFR 65 L Random Glucose 93 Calcium 8.4 L Phosphorus 4.1 Magnesium 2.0 Total Bilirubin 0.8 AST 32 ALT 31 Alkaline Phosphatase 65 Total Protein 6.2 L Albumin 3.0 L Culture Results: Microbiology 01/09/18 11:50 Gram Stain - Final Bronchial - Bronchial Bronchial Culture - Final No growth in 48 hours 01/09/18 11:50 Acid Fast Bacilli Smear - Final Bronchial Washings - Bronchial No acid fast bacilli seen Objective Remarks: GENERAL: Well-nourished, well-developed patient. SKIN: Warm and dry. HEAD: Normocephalic. EYES: No scleral icterus. No injection or drainage. NECK: Supple, trachea midline. No JVD or lymphadenopathy. LYMPHATIC: No adenopathy. CARDIOVASCULAR: Regular rate and rhythm without murmurs. RESPIRATORY: Breath sounds equal bilaterally. No accessory muscle use. GASTROINTESTINAL: Abdomen soft, non-tender, nondistended. EXTREMITIES: No cyanosis, or edema. MUSCULOSKELETAL: Adequate muscle tone. NEUROLOGICAL: No obvious focal deficit. Awake, alert, and oriented x3. PSYCHIATRIC: Appropriate mood and affect; insight and judgment normal. Assessment/Plan (1) Lung mass Code(s): R91.8 - Other nonspecific abnormal finding of lung field Status: Acute - Plan Path reviewed and d/w pt. She has NSCL ca stage IV. We discuss chemotherapy. Osmin meansrees. Will need PET scan as outpt Appt to see me on Tuesday at [facility] office. D/W Dr Florence that pt can be d/c to home. D/W DR Rusty Terry Will hold off for XRT since her pain is better with morphine and decadron. Will follow as outpt.
--- NOTE | 2018-02-02 16:04 | RADONCMHDR ---
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 Chelsi Gray comes in today accompanied with her . She has significant bone pain. Mainly in the mid thoracic spine between the scapula. On palpation some discomfort there. Also reports bilateral shoulder discomfort. She is scheduled for PET/CT tomorrow. We will schedule her for a CT simulation this upcoming Tuesday. We discussed potential role of radiation therapy. She has workup pending to see what she may respond to primary medical oncology point of view such as immunotherapy. REVIEW OF SYSTEMS: ConstitutionalComplains of lack of appetite. Complains of fatigue. Complains of a slight weight loss.Allergic/ImmunologicDenies allergies and adverse reactions.HeadDenies alopecia. EyesComplains of visual difficulties WEARS CORRECTIVE LENSES.ENMTComplains of altered taste.NeckDenies neck masses, muscle weakness, neck pain, decreased range of motion and swelling of the neck.IntegumentaryComplains of pruritus and rash.BreastsDenies breast masses, nipple discharge, nipple inversion and pain.CardiovascularDenies arrhythmias, chest pain, dyspnea, edema, orthopnea and palpitations.RespiratoryDenies cough, dyspnea, hemoptysis, hiccoughs, pleuritic chest pain and wheezing.GastrointestinalComplains of constipation and hemorrhoids.ROS Genitourinary (F)Denies dysuria, frequency, genital masses, hematuria, incontinence, nocturia, renal stone disease, problems with sexual function, urgency, urine color change, vaginal discharge / bleeding and vaginal spotting.Musculoskeletal Complains of bone pain.NeurologicComplains of dizziness and insomnia.PsychiatricDenies delusions, hallucinations, mood swings, depression and euphoria.EndocrineComplains of thyroid disease.Hematologic/Lymphatic Bruises easily PHYSICAL EXAMINATION: KPS 80. Walking with walker. Appears tired. Extremities no clubbing cyanosis edema. Skin no purpura petechial rash appropriate turgor. Some bone pain on palpation of the mid scapular spine. RADIOLOGY DATA: PET/CT pending. Cervical thoracic MRI lumbar spine demonstrate metastatic disease. MRI of the brain negative. PATHOLOGY DATA: Poorly differentiated possible primary breast pancreas upper GI. ASESSMENT /PLAN: Ms. Gray with clinically significant pain. Radiographic evidence of bone metastases. We discussed powder ration therapy thoracic spine. We discussed powder ration therapy shoulder. We wrote a prescription for dexamethasone. We wrote prescription for omeprazole. We will schedule CT simulation next Tuesday. Because mobilization of Isovue eyes. Will use PET/CT images to be obtained tomorrow for planning purposes as well. >50% of the 25 minute [id number] encounter involved treatment considerations counseling. Discussed potential toxicities of treatment as well such as pain with swallowing sore throat fatigue. Rajendra Ojeda MD 02/02/2018 4:03:39 PM This report was verified electronicallyThis report was verified electronically
== END 2018-01-13 13:25 | disposition home or self-care (01) ==
LOC: PHEDA 11:06 → PHEFT 11:06 → PH3 17:08 → N05 01-06 16:50
PROVIDERS: ADMIT Hospitalist; ATTEND Hospitalist